=== PATIENT | male | born 1950 | race Caucasian/White ===

== ENCOUNTER → 2016-07-25 | Outpatient (CLI) | payer OTHER ==
[~2016-07-25] VITALS: Ht 188 cm; Wt 116.7 kg
[~2016-07-25] MED LIST: IBUP-1428 PO
[2016-07-25 15:00] VITALS: BP 157/77; PULSE 82; Ht 188 cm; Wt 116.7 kg
== END | disposition home or self-care (01) ==
LOC: C.NEUR 12:48
PROVIDERS: ATTEND Physician Assistant
DX: G47.33 Obstructive sleep apnea (adult) (pediatric) (principal)

== ENCOUNTER → 2017-02-06 | Outpatient (CLI) | payer OTHER ==
[2017-02-06 15:43] LABS: BASO % 0.9 %; BASO ABS # 0.07 K/uL (0-0.2); COMPLETE YES; EOS % 3.1 %; HEMATOCRIT 50.1 % (42-52); IG% 0.3 %; LYMPH % 25.9 %; LYMPH ABS # 2.03 K/uL (1.2-3.4); MEAN CELL VOLUME 88.4 fL (80-100); MEAN CORPUSCULAR HEMOGLOBIN 30.7 pg (25-34); MEAN CORPUSCULAR HGB CONC 34.7 g/dl (32-36); MEAN PLATELET VOLUME 12.1 fL (7.4-10.4); NEUT % 62.8 %; PLATELET COUNT 141 K/uL (130-400); RED BLOOD COUNT 5.67 M/uL (4.7-6.1); WHITE BLOOD COUNT 7.83 K/uL (4.8-10.8)
[2017-02-06 16:04] LABS: ALT/SGPT 32 U/L (12-78); AST/SGOT 21 U/L (15-37); BLOOD UREA NITROGEN 22 mg/dl (7-18); BUN/CREATININE RATIO 17.2 (10-20); CALCIUM 9.2 mg/dl (8.5-10.1); CARBON DIOXIDE 27 mmol/L (21-32); CHLORIDE 107 mmol/L (98-107); CHOLESTEROL 182 mg/dl (0-200); GLUCOSE 81 mg/dl (70-99); POTASSIUM 4.3 mmol/L (3.5-5.1); SODIUM 140 mmol/L (136-145); TRIGLYCERIDES 331 mg/dl (0-150); VERY LOW DENSITY LIPOPROT CALC 66 mg/dl
[2017-02-06 16:10] LABS: ALB/GLOB RATIO 1.2 (0.9-2); ALKALINE PHOSPHATASE 92 U/L (45-117); CHOLESTEROL/HDL RATIO 6.5; HDL CHOLESTEROL 28 mg/dl
[2017-02-07 07:57] LABS: ESTIMATED AVERAGE GLUCOSE 120 mg/dl; HA1C FLAG Normal (Normal)
== END | disposition home or self-care (01) ==
LOC: C.LABSPEC 14:53
PROVIDERS: ATTEND Internal Medicine
DX: Z00.00 Encounter for general adult medical examination without abnormal findings (principal); E78.5 Hyperlipidemia, unspecified; R73.9 Hyperglycemia, unspecified; M19.90 Unspecified osteoarthritis, unspecified site

== ENCOUNTER → 2017-05-04 | Outpatient (CLI) | payer MEDICARE ==
[2017-05-04 18:22] LABS: BASO % 0.5 %; BASO ABS # 0.06 K/uL (0-0.2); EOS % 3.5 %; EOS ABS # 0.44 K/uL (0-0.5); HEMATOCRIT 50.9 % (42-52); IG# 0.05 K/uL (0.00-0.02); LYMPH % 18.8 %; LYMPH ABS # 2.36 K/uL (1.2-3.4); MEAN CELL VOLUME 93.2 fL (80-100); MEAN CORPUSCULAR HEMOGLOBIN 31.1 pg (25-34); MEAN CORPUSCULAR HGB CONC 33.4 g/dl (32-36); MEAN PLATELET VOLUME 11.4 fL (7.4-10.4); MONO ABS # 0.63 K/uL (0.11-0.59); NEUT % 71.8 %; NEUT ABS # 9.03 K/uL (1.4-6.5); PLATELET COUNT 220 K/uL (130-400); RED CELL DISTRIBUTION WIDTH SD 46.9 fL (36.4-46.3); WHITE BLOOD COUNT 12.57 K/uL (4.8-10.8)
[2017-05-04 18:27] LABS: POTASSIUM 4.1 mmol/L (3.5-5.1)
== END | disposition home or self-care (01) ==
LOC: C.LABBFT 12:25
PROVIDERS: ATTEND Physician Assistant
DX: H90.A31 Mixed conductive and sensorineural hearing loss, unilateral, right ear with restricted hearing on the contralateral side (principal); H90.3 Sensorineural hearing loss, bilateral

== ENCOUNTER → 2017-05-06 | Outpatient (CLI) | payer MEDICARE ==
[2017-05-06 18:00] LABS: CREATININE 1.11 mg/dl (0.60-1.40)
== END | disposition home or self-care (01) ==
LOC: C.LABBFT 11:57
PROVIDERS: ATTEND Physician Assistant
DX: H90.3 Sensorineural hearing loss, bilateral (principal)

== ENCOUNTER → 2017-05-07 | Outpatient (CLI) | payer MEDICARE ==
[~2017-05-07] MED LIST changes: +GADAVIST IV PRN
--- NOTE | 2017-05-07 21:40 | DIAGNOSTIC IMAGING REPORT ---
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 Gadolinium enhancement. COMPARISON STUDY: None FINDINGS: Diffusion-weighted images show no evidence for an acute ischemic process. There is moderate mucosal thickening and/or opacification of mastoid air cells bilaterally. There is mucosal thickening of the maxillary sinuses and to a lesser extent ethmoid sinuses. Several small foci of increased signal are identified in the periventricular deep white matter regions. There is a consistent with chronic small vessel change of aging. Postcontrast images with particular attention to the internal artery canals show no abnormal postcontrast enhancement. The 7th and 8th nerves are unremarkable. IMPRESSION: 1. Considerable mucosal thickening and/or opacification of the mastoid air cells bilaterally. 2. Moderate mucosal thickening of the maxillary and to a lesser extent ethmoid sinuses. 3. Evaluation of the brain is otherwise negative for age. 4. The internal auditory canals are normal. 5. Mild chronic small vessel change of aging throughout both cerebral hemispheres. The above report was generated using voice recognition software. It may contain grammatical, syntax or spelling errors. Electronically signed by: Mervin Bennett M.D. 05/07/2017 9:39 PM Dictated Date/Time: 05/07/2017 9:36 PM
== END | disposition home or self-care (01) ==
LOC: C.MRI 19:13
PROVIDERS: ATTEND Physician Assistant
DX: H90.A31 Mixed conductive and sensorineural hearing loss, unilateral, right ear with restricted hearing on the contralateral side (principal); J34.89 Other specified disorders of nose and nasal sinuses

== ENCOUNTER 2022-08-15 06:22 | Observation (INO) ==
--- NOTE | 2022-07-15 11:58 | PAT Medication Instructions ---
Medication Instructions Date of Service July 15, 2022 Home Medications Medication Instructions Recorded carvedilol 3.125 mg tablet 3.125 mg PO BID #60 tabs 08/07/21 sacubitril 49 mg-valsartan 51 mg 1 tab PO BID #180 tabs 12/17/21 tablet (Entresto) Medication List: apixaban 5 mg tablet (Eliquis) 5 mg PO BID tamsulosin 0.4 mg capsule (Flomax) 0.4 mg PO BID carvedilol 3.125 mg tablet 3.125 mg PO BID sacubitril 49 mg-valsartan 51 mg tablet (Entresto) 1 tab PO BID Medical Thc 1 dose PO HS biotin 1 mg tablet 1 mg PO QAM multivitamin 1 tab PO QAM naltrexone 50 mg tablet 25 mg PO DAILY weightloss Continue as directed naltrexone 50 mg tablet 25 mg PO DAILY weightloss ASK your prescriber and surgeon apixaban 5 mg tablet (Eliquis) 5 mg PO BID (for spinal anesthesia: will need to hold Eliquis/apixaban at least 72 hours prior to surgery) STOP taking 2 weeks before surgery biotin 1 mg tablet 1 mg PO QAM DO NOT take the morning of surgery sacubitril 49 mg-valsartan 51 mg tablet (Entresto) 1 tab PO BID multivitamin 1 tab PO QAM Take morning of surgery With a small sip of water, OTHERWISE NOTHING TO EAT OR DRINK AFTER MIDNIGHT: tamsulosin 0.4 mg capsule (Flomax) 0.4 mg PO BID carvedilol 3.125 mg tablet 3.125 mg PO BID Take evening before surgery tamsulosin 0.4 mg capsule (Flomax) 0.4 mg PO BID carvedilol 3.125 mg tablet 3.125 mg PO BID sacubitril 49 mg-valsartan 51 mg tablet (Entresto) 1 tab PO BID Medical Thc 1 dose PO HS Other Notes If you have any questions please call us at [phone] or [phone] or [phone] or [phone]
--- NOTE | 2022-07-28 08:19 | Anesthesiology Consultation ---
Date of Service July 28, 2022 Assessment & Plan (1) Encounter for pre-operative examination: - Outpatient joint assessment: Patient is currently scheduled for inpatient pathway. If re-evaluated pending system levels during current pandemic/surgeon requests outpatient pathway, patient is not recommended candidate for outpatient joint program from anesthesia standpoint. Chart Review Chart Review: Acceptable Risk for Surgery and Patient seen in Pre Admission Testing Teaching & Discussion Pre-Anesthesia Teaching/Discussion Notes: Instructed NPO after midnight before surgery, except medications with 15 cc of water. Medication instructions provided according to the PAT guidelines. History Surgery Operation Date: 08/15/22 08:10 Proposed Procedures p Left Total Knee Arthroplasty - Forrest Light, Height/Weight Height: 6 ft 1 in Weight: 105.9 kg Allergies Allergy/AdvReac Type Severity Reaction Status Date / Time No Known Allergies Allergy Verified 07/15/22 07:30 Medications Home Medications Medication Instructions Recorded Confirmed Last Taken apixaban 5 mg tablet (Eliquis) 5 mg PO BID 03/09/20 07/15/22 Unknown tamsulosin 0.4 mg capsule (Flomax) 0.4 mg PO BID 03/09/20 07/15/22 Unknown sacubitril 49 mg-valsartan 51 mg 1 tab PO BID #180 tabs 12/17/21 07/15/22 Unknown tablet (Entresto) Medical Thc 1 dose PO HS 07/15/22 07/15/22 Unknown biotin 1 mg tablet 1 mg PO QAM 07/15/22 07/15/22 Unknown multivitamin 1 tab PO QAM 07/15/22 07/15/22 Unknown naltrexone 50 mg tablet 25 mg PO DAILY weightloss 07/15/22 07/15/22 Unknown carvedilol 3.125 mg tablet 3.125 mg PO BID #60 tabs 07/28/22 Unknown Past Medical History Medical History (Updated 07/28/22 @ 08:38 by Kenya Avila PA-C) Atrial fibrillation [place]s with [facility] [place] [facility] BPH (benign prostatic hyperplasia) Cardiomyopathy unknown etiology per [facility], EF 55-60% on 2022 echo Chronic sinusitis Disc degeneration, lumbar Hx of melanoma of skin nose, s/p excision Hyperlipidemia Hypertension controlled, stable per pt-white coat hypertension Mixed conductive and sensorineural hearing loss of right ear with restricted hearing of left ear Obesity Obstructive sleep apnea CPAP-night PAD (peripheral artery disease) Sensorineural hearing loss (SNHL) of both ears Patient denies h/o stroke, seizures, heart attack, DM, blood clots or blood transfusions. Exercise / Class Metabolic Activity II 4-5 Yardwork/Stairs/Walk up hill (denies chest discomfort or shortness of breath with 1 FOS) Past Family History Family History Unknown Snoring FHx: deafness or hearing loss Mother Breast cancer FHx: deafness or hearing loss Sister Colon cancer FHx: deafness or hearing loss Past Surgical History Surgical History History of arthroscopy of knee multiple (bilateral) History of colonoscopy History of esophagogastroduodenoscopy (EGD) History of total knee arthroplasty right Hx of melanoma excision S/P peripheral artery angioplasty with stent placement 05/02/22 at [facility] (left leg) Past Anesthesia History No Hx of Anesthesia Complications and No Family Hx of Anesthesia Complications History of PONV No Hx of PONV and No Hx of Motion Sickness Social History Smoking Status: Former smoker tobacco type: cigarettes Do You Dip or Chew Tobacco: No Smoking End Date: ~2002 Hx Alcohol Use: No Hx Substance Use: No Review of Systems Patient denies chest pain, shortness of breath, dyspnea on exertion, reflux, fever, chills, cough, wheezing, or palpitations. Physical Exam Vital Signs Vitals BP 133/85 P 65 SP02 96% on RA RESP 17 Physical Full cervical extension range of motion without pain TMD 3.5 finger breadths Mallampati Score 2 Dentition: implants-13 throughout, denies chipped or loose teeth, caps/crowns Lungs: normal respiratory effort. Clear throughout to auscultation, no adventitious breath sounds Cardiac: irregularly irregular rhythm, regular rate, no murmurs noted Carotid arteries: negative bruit bilat Lab Results Anesthesia Preop Results Results Anesthesia Widget: WBC 7.04 K/ul (4.8-10.8) 07/28/22 Hgb 16.5 g/dl (14.0-18.0) 07/28/22 Hct 47.6 % (42.0-52.0) 07/28/22 Plt 106 K/uL (130-400) L 07/28/22 Na 141 mmol/L (136-145) 07/28/22 K 4.9 mmol/L (3.5-5.1) 07/28/22 Cl 107 mmol/L (98-107) 07/28/22 CO2 29 mmol/L (21-32) 07/28/22 BUN 33 mg/dl (6-23) H 07/28/22 Creat 1.21 mg/dl (0.6-1.4) 07/28/22 Glucose Level 96 mg/dl (70-99(Fasting)) 07/28/22 PT 11.0 Seconds (9.0-12.0) 07/28/22 PTT 34.9 Seconds (21.0-31.0) H 07/28/22 INR 1.0 (0.9-1.1) 07/28/22 Blood Type O Positive 07/28/22 Antibody Screen NEGATIVE 07/28/22 Testing Electrocardiogram Date: 07/28/22 Afib, rate 68 bpm RBBB Chest X-Ray Date: 07/28/22 No pneumothorax or pleural effusion is present. There is no consolidation. No evidence for pulmonary edema. Linear left basilar opacity reflects atelectasis. Mild elevation of the left hemidiaphragm. There is borderline cardiomegaly. IMPRESSION: No acute cardiopulmonary findings. Echocardiogram Date: 06/16/22 EF 55-60% No regional wall motion abnormalities Mild cLVH LA mildly dilated Stress Test Date: 04/10/20 1. Negative myocardial perfusion for ischemia. 2. Fixed inferolateral and inferior defect which could represent infarct versus diaphragmatic attenuation artifact. 3. Global hypokinesis with moderately reduced LV systolic function. EF 41%. 4. Nondiagnostic Lexiscan ECG. MPHR 49% COVID-19 Risk Screen Screening Information COVID-19 Screen Date: 07/28/22 Exposure 21 Days Family/Household +COVID Last 21 Days: No Exposure 10 Days Any COVID Exposure Last 10 Days: No Symptoms Last 10 Days Experienced COVID Sx Last 10 Days: No + COVID 0-90 Days COVID + in Last 0-90 Days: No
--- NOTE | 2022-08-15 06:05 | History & Physical Report ---
Date of Service August 15, 2022 Assessment & Plan (1) Osteoarthritis of left knee: We will proceed with a left total knee arthroplasty. Postoperatively he will be started on Eliquis for DVT prophylaxis and kept overnight in the hospital for postop medical management. He plans to go to outpatient physical therapy upon discharge. History of Present Illness Chief Complaint: Osteoarthritis of the left knee. Primary Care Provider: Wood Nagy DO Wicho is a pleasant 71-year-old male who has been dealing with chronic worsening left knee pain. He has a history of right knee replacement done by Dr. Lopez in the past and has done very well with that. Unfortunately, he is really struggling with his left knee. It hurts him all the time. It hurts him going up and down stairs and walking long distances. X-rays and clinical examination been diagnostic for advanced osteoarthritis of the left knee. After found conservative treatment, he has elected proceed with a left total knee arthroplasty. Allergies Allergy/AdvReac Type Severity Reaction Status Date / Time No Known Allergies Allergy Verified 08/08/22 07:33 Home Medications Medication Instructions Recorded Confirmed Type apixaban 5 mg tablet (Eliquis) 5 mg PO BID 03/09/20 08/08/22 History tamsulosin 0.4 mg capsule (Flomax) 0.4 mg PO BID 03/09/20 08/08/22 History sacubitril 49 mg-valsartan 51 mg 1 tab PO BID #180 tabs 12/17/21 08/08/22 Rx tablet (Entresto) Medical Thc 1 dose PO HS 07/15/22 08/08/22 History biotin 1 mg tablet 1 mg PO QAM 07/15/22 08/08/22 History multivitamin 1 tab PO QAM 07/15/22 08/08/22 History naltrexone 50 mg tablet 25 mg PO DAILY weightloss 07/15/22 08/08/22 History carvedilol 3.125 mg tablet 3.125 mg PO BID #60 tabs 07/28/22 08/08/22 Rx Past Med/Surg History Medical History Atrial [place] [facility] [place] BPH (benign prostatic hyperplasia) Cardiomyopathy unknown etiology per [facility], EF 55-60% on 2022 echo Chronic sinusitis Disc degeneration, lumbar Hx of melanoma of skin nose, s/p excision Hyperlipidemia Hypertension controlled, stable per pt-white coat hypertension Mixed conductive and sensorineural hearing loss of right ear with restricted hearing of left ear Obesity Obstructive sleep apnea CPAP-night PAD (peripheral artery disease) Sensorineural hearing loss (SNHL) of both ears Surgical History History of arthroscopy of knee multiple (bilateral) History of colonoscopy History of esophagogastroduodenoscopy (EGD) History of total knee arthroplasty right Hx of melanoma excision S/P peripheral artery angioplasty with stent placement 05/02/22 at [facility] (left leg) Family History Unknown Snoring FHx: deafness or hearing loss Mother Breast cancer FHx: deafness or hearing loss Sister Colon cancer FHx: deafness or hearing loss Social History Smoking Status: Former smoker Tobacco Type: Cigarettes Age Started Using Tobacco: 15; Age Quit Using Tobacco: 30; packs per day: 2; Second Hand Exposure: No; Hx Alcohol Use: No Hx Substance Use: No Preferred Language: Albanian Communication Ability: Effective Hearing Ability: Use of Hearing Aid Business Development Coordinator Required: No Beliefs That Will Affect Care: None 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 Physical Exam On physical examination of left knee, he has a slight valgus deformity. He is tenderness palpation of the distal lateral femoral condyle and over the lateral joint line.. Constitutional WD/WN, vitals as above Eyes PERRL, conjunctivae normal, anicteric sclerae ENMT external ear and nose normal, oropharynx normal Neck trachea midline, no thyromegaly Respiratory normal respiratory effort, lungs clear to auscultation Cardiovascular RRR, no murmur, no edema Gastrointestinal (Abdomen) normal bowel sounds, soft, nontender, no hepatosplenomegaly Skin no rashes, warm and dry Psychiatric A+Ox3, euthymic affect Results & Data Results & Data Laboratory Results . Diagnostic Findings X-rays of the left knee show advanced osteoarthritis with joint space narrowing, osteophyte formation, and alwe-vs-kjox articulation. PG Care Time/CCT Total # of Minutes Spent Total Time Spent with Patient: Total time spent is greater than 50% in coordination of care (as documented) at patient's floor/unit and/or counseling patient: Coding Level of Care Code None Diagnoses Osteoarthritis of left knee M17.12
[~2022-08-15 06:22] MED LIST changes: +ACETAMINOPHEN 500 MG TAB PO SCH; +FAMOTIDINE 20 MG TAB PO SCH; +GABAPENTIN 300 MG CAP PO SCH; -GADAVIST IV PRN; -IBUP-1428 PO; +LR 500ML BOLUS, THEN 15ML/HR IV SCH; +LR 60ML/HR IV SCH; +ORTHO JOINT MIX INFIL SCH; +TRANEXAMIC ACID 1,000 MG **IV Intra-op IV SCH; +TRANEXAMIC ACID 1,000 MG **IV Pre-op IV SCH; +ceFAZolin 2000MG 2,000 MG/15 ML SYR IV SCH; +dexAMETHasone 4 MG TAB PO SCH
[2022-08-15] MEDS ORDERED: ROPIVACAINE 0.5% 5 MG/ML 30 ML VIAL ONE (06:29)
[2022-08-15] MEDS ORDERED: MIDAZOLAM HCL 1 MG/ML 2ML VIAL ONE (07:32)
[2022-08-15] MEDS ORDERED: PROPOFOL IV EMULSION 10 MG/ML 20 ML VIAL IV ONE ×2 (07:32→11:10)
[2022-08-15] MEDS ORDERED: fentaNYL citrate PF 100 MCG/2 ML VIAL ONE (07:32)
[2022-08-15] MEDS ORDERED: ATROPINE SULFATE 0.1 MG/ML 10ML SYR IV PRN (08:38)
[2022-08-15] MEDS ORDERED: ePHEDrine sulfate 50 MG/ML AMP IV PRN (08:38)
[2022-08-15] MEDS ORDERED: ONDANSETRON INJ 2 MG/ML 2 ML VIAL IV PRN ×2 (08:38→13:53)
[2022-08-15] MEDS ORDERED: HYDROmorphone INJ 1 MG/ML SYRINGE IV PRN (08:38)
[2022-08-15] MEDS ORDERED: KETOROLAC 30 MG/ML VIAL IV PRN (08:38)
[2022-08-15] MEDS ORDERED: ORTHO JOINT ANESTHETIC ONE (08:53)
[2022-08-15] MEDS ORDERED: KETAMINE 50 MG/5 ML SYRINGE ONE (10:00)
[2022-08-15] MEDS ORDERED: ONDANSETRON INJ 2 MG/ML 2 ML VIAL ONE (10:27)
--- NOTE | 2022-08-15 11:12 | Operative Report ---
PG Post Operative Report Pre & Post Diagnosis Operation Date: 08/15/22 09:30 Pre-Op Diagnosis: Degenerative Joint Disease Left Knee Post-Op Diagnosis: Degenerative Joint Disease Left Knee I identified the patient and participated in the time-out.: Yes Procedure Operation Date: 08/15/22 09:30 Actual Procedures p Left Total Knee Arthroplasty, Cemented(Left) - Forrest Light DO Surgeon Forrest Light DO Soaker Meat Forrest Díaz PA-C Estimated Blood Loss 100 Findings Consistent with Post-Op Diagnosis Specimens Left femoral and tibial bone Description of Procedure Implants used: I used a Marilou Persona total knee arthroplasty system with a size 11 standard femur, F tibia, 34 oval patella, and a size 13 medial congruent polyethylene bearing. All components were cemented in place with Biomet cement. Bruno arrived [facility] for the above procedure. He was seen in the preoperative holding area and the operative extremity was identified and signed. He was given a preoperative antibiotic, TXA, a spinal anesthetic and an adductor nerve block. He was taken back to the operating room and laid on the table in supine position. He was given basic sedation. The operative knee was then prepped and draped in sterile fashion. A timeout was done, and the patient and the operative extremity was properly identified. A midline incision was made directly over the patella. Dissection was taken down to the extensor mechanism. A midvastus arthrotomy was used. The medial retinaculum was released and the fat pad was mostly excised. The knee was flexed and the ACL, PCL, and meniscus were removed. A drill was sent down the center of the femoral canal followed by an intramedullary michelle. Off that michelle a distal femoral cutting block was placed. 9 mm was resected off the distal femur at 5 of valgus. A posterior referencing AP sizing guide was then placed on the distal femur. The femur measured to be a size 11. 2 drill holes were placed in 3 of external rotation. A 4-in-1 cutting block was then impacted into place. Anterior, posterior, and chamfer cuts were then made. The proximal tibia was then exposed. An external tibial alignment guide was placed. A tibial cut guide was then anchored in place and the proximal tibia was then resected. The posterior aspect of the knee was then opened up and any additional meniscus fragments and osteophytes were removed. The tibia measured to be a size F. The tibial plate was then placed in the appropriate rotation and the tibia was drilled and punched. Trial components were then placed. I used a size 13 medial congruent polyethylene insert. The knee was brought through a full range of motion and felt to be stable. The peg holes for the femoral component were then drilled. The patella was then everted and 9 mm was resected off the posterior aspect of the patella. The patella measured to be a size 34 oval. 3 peg holes were then drilled. A trial patella was placed. The knee was once again brought through a full range of motion and felt to be stable. Trial components were then removed. The surrounding soft tissues were injected with 100 cc of an orthopedic pain control cocktail. All components were then cemented into place with Biomet cement. The final polyethylene insert was then snapped into place. Once cement was dry the tourniquet was deflated. Hemostasis was obtained. A dilute betadyne lavage was then done for 3 minutes. The joint was then irrigated with normal saline solution. The midvastus arthrotomy was then closed with #1 Vicryl suture. The skin was closed with 2-0 Vicryl, 3-0V lock suture, and vira. A soft compressive dressing was placed. He was then transferred to a hospital bed and taken to the postanesthesia care unit in stable condition. He tolerated the procedure well. Forrest Díaz PA-C, was present for the entire procedure. He was critical for patient positioning, prepping, draping, retraction exposure, wound closure and application of sterile dressing. I attest to the content of the Intraoperative Record and any orders documented therein. Any exceptions are noted below.
--- NOTE | 2022-08-15 12:35 | Anesthesiology Progress Note ---
Date of Service August 15, 2022 Anesthesia Post Procedure Vital Signs Vital Signs: Temp Pulse Pulse Resp BP BP Pulse Ox 08/15/22 12:30 57 L 18 117/75 98 08/15/22 11:55 48 L 13 115/74 100 08/15/22 12:15 36.1 C L 60 14 104/76 97 08/15/22 12:05 63 21 124/76 99 08/15/22 11:45 39 L 15 102/68 100 08/15/22 11:38 36.5 C 58 L 15 88/69 L 96 08/15/22 07:36 36.5 C 55 L 20 165/102 H 97 O2 Del Method O2 Flow Rate 08/15/22 12:30 Nasal Cannula 2 08/15/22 11:55 Oxymask 10 08/15/22 12:15 Nasal Cannula 2 08/15/22 12:05 Oxymask 6 08/15/22 11:45 Oxymask 10 08/15/22 11:38 Oxymask 10 08/15/22 07:36 Room Air Transfer of Care Handoff Completed per policy Notes Mental Status: alert / awake / arousable Patient Amnestic to Procedure: Yes Nausea / Vomiting: adequately controlled Pain: adequately controlled Airway Patency, RR, SpO2: stable & adequate BP & HR: stable & adequate Hydration State: stable & adequate Neuraxial Anesthesia: was administered and sensory block is resolving Anesthetic Complications: no major complications apparent
--- NOTE | 2022-08-15 12:53 | XRay Report ---
LEFT KNEE 2 VIEWS History: Left total knee arthroplasty. Degenerative arthritis. Postop. FINDINGS: The patient is status post a left total knee arthroplasty. The hardware is intact. No fract ure or dislocation. Skin vira are in place. IMPRESSION: Left total knee arthroplasty. No evidence for hardware complication. ACT 112: Negative or not required by law. Electronically signed by: Brian Colunga M.D. 08/15/2022 12:52 PM
[2022-08-15] MEDS ORDERED: MAGNESIUM HYDROXIDE SUSP 30 ML UDC PO PRN (13:53)
[2022-08-15] MEDS ORDERED: bisacodyL 10 MG SUPP PR PRN (13:53)
[2022-08-15] MEDS ORDERED: METOCLOPRAMIDE HCL INJ 5 MG/ML 2 ML VIAL IV PRN (13:53)
[2022-08-15] MEDS ORDERED: NALOXONE HCL 0.4 MG/1 ML VIAL/CARP IV PRN (13:53)
[2022-08-15] MEDS ORDERED: SODIUM CHLORIDE 0.9% 1000ML 1,000 ML IV SCH (13:53)
[2022-08-15] MEDS: ACETAMINOPHEN 500 MG TAB PO SCH ×2 (14:25→21:21)
[2022-08-15] MEDS: KETOROLAC TROMETHAMINE 15 MG/ML VIAL IV SCH ×2 (14:28→21:22)
[2022-08-15] MEDS: oxyCODONE HCL IR 5 MG TAB (IMMEDIATE RELEASE) PO PRN ×2 (16:06→22:55)
[2022-08-15] MEDS: carvediloL 3.125 MG TAB PO SCH (17:07)
[2022-08-15] MEDS: ceFAZolin 2000MG 2,000 MG/15 ML SYR IV SCH (17:39)
[2022-08-15] MEDS: HYDROmorphone INJ 0.5 MG/0.5 ML SYR IV PRN (19:17)
[2022-08-15] MEDS ORDERED: SENNA 8.6 MG TAB PO SCH (21:00)
[2022-08-15] MEDS: DOCUSATE SODIUM 100 MG CAP PO SCH (21:21)
[2022-08-15] MEDS: VALSARTAN/SACUBITRIL 51/49 MG TAB PO SCH (21:22)
[2022-08-15] MEDS: TAMSULOSIN HCL 0.4 MG CAP PO SCH (21:22)
[2022-08-16] MEDS: HYDROmorphone INJ 0.5 MG/0.5 ML SYR IV PRN ×3 (01:37→12:17)
[2022-08-16] MEDS: ceFAZolin 2000MG 2,000 MG/15 ML SYR IV SCH (01:37)
[2022-08-16] MEDS: ACETAMINOPHEN 500 MG TAB PO SCH (05:21)
[2022-08-16] MEDS: oxyCODONE HCL IR 5 MG TAB (IMMEDIATE RELEASE) PO PRN ×2 (05:21→10:16)
--- NOTE | 2022-08-16 05:35 | Orthopedic Progress Note ---
Date of Service August 16, 2022 Assessment & Plan (1) Status post left knee replacement: Overall he is doing very well. He is not having much pain in the left knee. He will be seen by physical therapy today for ambulation and range of motion exercises. He is on Eliquis for DVT prophylaxis. He can be discharged home later today. He will follow-up with orthopedics in 2 weeks. Chaz Carr was seen and examined at bedside this morning. Overall is doing very well. He is not having much pain in the left knee. He has been up and ambulating to the bathroom. He has no complaints.. Review of Systems All systems reviewed & are unremarkable except as noted in HPI & below. Physical Exam On physical examination of the left knee, the dressing is clean and dry. His leg is out full extension. He has active dorsiflexion plantarflexion of his left ankle.. Results & Data Results & Data Laboratory Results . Diagnostic Findings Postoperative x-rays of the left knee show the prosthesis to be in anatomic alignment without any evidence of fracture, screws, or loosening.. PG Care Time/CCT Total # of Minutes Spent Total Time Spent with Patient: Total time spent is greater than 50% in coordination of care (as documented) at patient's floor/unit and/or counseling patient: Coding Level of Care Code 88358 Post Operative Follow-Up Diagnoses Status post left knee replacement Z96.652
--- NOTE | 2022-08-16 05:36 | Discharge Summary ---
Date of Service August 16, 2022 Admission HPI (Per Admitting) Wicho is a pleasant 71-year-old male who has been dealing with chronic worsening left knee pain. He has a history of right knee replacement done by Dr. Lopez in the past and has done very well with that. Unfortunately, he is really struggling with his left knee. It hurts him all the time. It hurts him going up and down stairs and walking long distances. X-rays and clinical examination been diagnostic for advanced osteoarthritis of the left knee. After found conservative treatment, he has elected proceed with a left total knee arthroplasty. Admission Exam (Per Admitting) On physical examination of left knee, he has a slight valgus deformity. He is tenderness palpation of the distal lateral femoral condyle and over the lateral joint line.. Principal Diagnosis Same as "Discharge Diagnosis" noted below under Discharge Instructions. Discharge Exam On physical examination of the left knee, the dressing is clean and dry. His leg is out full extension. He has active dorsiflexion plantarflexion of his left ankle.. Discharge Data Procedures Performed Operation Date: 08/15/22 09:30 Actual Procedures p Left Total Knee Arthroplasty, Cemented(Left) - Forrest Light DO Ordered Studies 08/15/22 05:00 US - OR guided needle placemen Routine Hospital Course (1) Status post left knee replacement: On 9 August 15, 2022 Bruno arrived at [facility] and underwent a left knee replacement without complication. He had a spinal anesthetic. Postoperatively he was started on Eliquis for DVT prophylaxis and transferred to the general orthopedic floors. His hospital course was uneventful. On postop day #1, his vital signs were stable and his pain was well controlled. He was able to participate well with physical therapy doing ambulation and range of motion exercises. He was then discharged to home. He will follow-up with orthopedics in 2 weeks. PG Care Time/CCT Total # of Minutes Spent Total Time Spent with Patient: Total time spent is greater than 50% in coordination of care (as documented) at patient's floor/unit and/or counseling patient: Discharge Plan Discharge Items Patient Disposition: Home - Home Health Services Reason For Visit: DJD Left Knee Discharge Diagnosis: Left knee replacement Activity: As commented below Non-emergency contact: Surgeon Call non-emergency contact if: your wound has increased redness and your wound has increased drainage Follow-up/Referrals: Wood Nagy, [Primary Care Provider] - Diet: Regular Addtl Attending Provider Instructions: Activity and Therapy Recommendations: * If you are using [facility] then therapy will be provided at your home until they feel you have accomplished all of your goals. * If you are using [facility] then Physical Therapy will be provided until they feel you are ready to start Outpatient Physical Therapy. * If you are not using home therapy then Outpatient Physical Therapy should start about 3-5 days from your day of surgery. Therapy will last about 6-10 weeks * It is important not to put a pillow under your knee when you are relaxing or sleeping. It is just as important to make sure you are getting your knee perfectly straight as it is to regain your knee bend. * You were shown a series of exercises in the hospital. Do these exercises three times each day including the exercises you were shown in physical therapy. * Get up and walk several times each day. For the first four weeks, try not to stand or walk for more than one hour at a time. If you do stand or walk for more than one hour, you will not hurt anything, but your leg will likely swell. * As you feel comfortable, you may change from the walker or crutches to a cane and then to independent walking. Medications: * Narcotic You will likely be sent home from the hospital with a prescription for the narcotic pain medication that worked best throughout your stay. * Continue taking your Eliquis as prescribed. * Other medications may be prescribed for specific circumstances. If you have any questions, please call the office at . * Resume previous home medications unless otherwise instructed TEDs/Elastic Stockings: The white elastic stockings help limit swelling and prevent blood clots from forming in your legs.~ The more you wear them, the more they work. Wear them for six weeks. Dressing Care: The dressing can be changed after physical therapy on postop day #1. Daily dry dressing changes for a few days, especially if the incision is still draining some. If the incision is not draining then you may leave the vira open to air. If there is a little bit of drainage or if the vira are getting stuck on your clothing then cover the incision with a dry dressing. The vira will be removed at your 2 week follow-up appointment. Showering: You may shower 5 days from the day of surgery as long as the incision is no longer draining. You may shower with the vira exposed. Let soapy water run over the vira and pat them dry. Do not scrub or soak the incision. Things To Watch For: * Drainage from the incision site that occurs more than one week after your surgery. * Increased redness at the incision site. * Fever above 102 degrees Fahrenheit. * Unusual chest pain or shortness of breath. * Call [facility] at with any of the above problems Follow-Up Visit: Follow-up with Dr. Light's PA (Forrest Díaz) 2-3 weeks after your day of surgery. He will remove your vira and answer any questions. If you have any additional questions or concerns, Dr Light is usually in the office at the same time and will be available An appointment was probably scheduled when you signed-up for surgery in the office. If you have any questions call Office Instructions: More detailed instructions as well as Frequently Asked Questions were provided in a folder by our office when you signed-up for surgery. Please review these instructions when you get home. If you have any further questions or concerns, please feel free to call the office at [phone] Pending Studies at Discharge: No Stand-Alone Forms: [facility], Smoking Cessation Medications and DC Order Prescriptions: New oxycodone-acetaminophen 5-325 mg tablet 1 tab PO Q6H PRN (Reason: pain) Qty: 30 0RF Continued carvedilol 3.125 mg tablet 3.125 mg PO BID Qty: 60 11RF Rx Instructions: must administer with a meal/food Entresto 49-51 mg tablet 1 tab PO BID Qty: 180 3RF tamsulosin [Flomax] 0.4 mg capsule 0.4 mg PO BID Eliquis 5 mg tablet 5 mg PO BID multivitamin Tablet 1 tab PO QAM biotin 1 mg Tablet 1 mg PO QAM Medical Thc 1 dose PO HS naltrexone 50 mg tablet 25 mg PO DAILY Admission Data Admit Date/Time: 08/15/22 11:40 Attending Provider: Forrest Light Admit Provider: Forrest Light Primary Care Provider: Wood Nagy
[2022-08-16] MEDS ORDERED: APIXABAN 5 MG TABLET PO SCH (08:00)
[2022-08-16] MEDS ORDERED: dexAMETHasone 4 MG TAB PO SCH (08:00)
[2022-08-16] MEDS: carvediloL 3.125 MG TAB PO SCH (08:33)
[2022-08-16] MEDS: TAMSULOSIN HCL 0.4 MG CAP PO SCH (08:33)
[2022-08-16] MEDS: VALSARTAN/SACUBITRIL 51/49 MG TAB PO SCH (08:33)
[2022-08-16] MEDS: DOCUSATE SODIUM 100 MG CAP PO SCH (08:34)
[2022-08-16] MEDS ORDERED: NALTREXONE HCL 50 MG TAB PO SCH (09:00)
[2022-08-16] MEDS ORDERED: MULTIVITAMIN TAB PO SCH (09:00)
== END 2022-08-16 12:42 | disposition home or self-care (01) ==
LOC: ASU 06:22 → 3E 06:22 → ASU 09:54

== ENCOUNTER 2024-02-03 11:06 | Inpatient (IN) ==
[2024-02-03] MEDS: MIDAZOLAM HCL 1 MG/ML 2ML VIAL ONE ×4 (11:13→13:34)
--- NOTE | 2024-02-03 11:23 | History & Physical Report ---
Date of Service February 03, 2024 Assessment & Plan (1) ST elevation (STEMI) myocardial infarction: Plan: Inferior STEMI, Heart failure with history of nonischemic cardiomyopathy [id number] collapse, with a CPR and subsequent ROSC. Received 3 doses of epinephrine and 1 dose of atropine prehospital. Prehospital EKG with inferior ST elevations Troponin added and trended - Amio continued Taken to the Pupil Personnel Worker emergently. Subsequently was found to have distal RCA acute occlusion s/p 4 DIANE. Subsequently moved to the ICU for recovery Echo pending Troponin trended to peak BBlocker and Entresto held for cardiogenic shock requiring pressors, resume o nce pressures permit Continue DAPT aspirin/Brilinta - TTE 2022: 55-60% EF - TTE 2019: 40-45% EF, biventricular dysfunction. Suspected nonischemic, unclear etiology at the time Entresto and beta-amina held on admission due to cardiogenic shock (2) HFrEF (heart failure with reduced ejection fraction): (3) Atrial fibrillation: Plan: A-fib on Eliquis Patient switched to heparin on admission Beta-amina held on admission for cardiogenic shock on pressors Patient has had multiple severe GI bleeds and anemia. Did have ERNESTO clipping in 2019, is continued on apixaban and does have some increased risk of VTE with underlying malignancy. Recommend review of ongoing/benefits of anticoagulation with DAPT post stenting once patient able to contribute to conversation (4) Complex sleep apnea syndrome: Plan: ARACELIS: Sleep study 12/05/2023 consistent with complex sleep apnea. Patient currently intubated, once extubated continue NIV qHS while inpt, ASV at home Plan Chronic stable issues Hyperlipidemia: Statin as noted Hypertension: Continue antihypertensives as noted PAD: No acute change, follow with vascular Health screening: Last colonoscopy with poor prep, nonbleeding internal hemorrhoids. DVT prophylaxis: Heparinized on admission, transition to prophylactic Lovenox if renal function is normal when GTTs discontinued CODE STATUS: Full code Disposition: ICU post STEMI Diet: N.p.o., ETT in place History of Present Illness Primary Care Provider: Wood Nagy DO Bruno is a 73-year-old male with past medical history of atrial fibrillation, PAD, hypertension, hyperlipidemia on Eliquis, carvedilol, Entresto who presents to the ER as a heart alert. Collateral is limited, patient is intubated and no history is available from the patient at bedside. Patient's is reportedly on the way to the hospital has not yet present at bedside for collateral. Per EMS in signout report patient was in a fishing at a , had a stressful conversation following a and collapsed shortly after. CPR was started immediately by the under taker and was performed for approximately 10 minutes until EMS arrival. Patient received 3 doses of epinephrine and 1 dose of atropine prehospital with ROSC after approximately 10 minutes. Prehospital EKG showed inferior ST elevations. Patient was intubated. At time of bedside evaluation patient is intubated, on Levophed 0.5, and serial EKGs with improving inferior ST elevations compared to prior. Patient is reportedly on Eliquis. Does have a history of nonischemic cardiomyopathy with EF in 2020 around 40-45%, interval improvement on last echo 55-60% while on Entresto, carvedilol. He is a known vasculopath with a history of left femoral stent placement on Eliquis monotherapy, no known antiplatelet therapy. Does have a history of prediabetes on metformin, and tobacco abuse. History of A-fib. Stat head CT without obvious intracranial pathology. While in the ER patient was started on Levophed 0.5, continued on mechanical ventilation. Patient was started on a heparin drip Patient taken emergently to the Pupil Personnel Worker for cardiac catheterization, and to be admitted to the ICU following. Further workup and collateral pending reevaluation and discussion once family at bedside. Patient is reportedly full code. Medical History: Reviewed in EMR Medications: Reviewed in EMR Surgical History: Reviewed in EMR Family history: Reviewed in EMR Allergies: Reviewed in EMR Social History: Reviewed in EMR +tobacco use Code Status: Reviewed in EMR, full Code Allergies Allergy/AdvReac Type Severity Reaction Status Date / Time No Known Allergies Allergy Verified 12/15/23 10:53 Home Medications Medication Instructions Recorded Confirmed Type multivitamin 1 tab PO QAM 07/15/22 02/03/24 History tamsulosin 0.4 mg capsule (Flomax) 0.4 mg PO BID #180 caps 12/04/22 02/03/24 Rx acetaminophen 500 mg tablet 500 mg PO QAM 05/04/23 02/03/24 History apixaban 5 mg tablet (Eliquis) 5 mg PO BID #60 tabs 08/23/23 02/03/24 Rx carvedilol 3.125 mg tablet 3.125 mg PO BID #180 tabs 10/01/23 02/03/24 Rx metformin 500 mg tablet,extended 500 mg PO BID #180 tabs 11/10/23 02/03/24 Rx release 24 hr sacubitril 24 mg-valsartan 26 mg 1 tab PO BID #180 tabs 12/01/23 02/03/24 Rx tablet (Entresto) CPAP Machine #1 ea 12/15/23 12/15/23 Rx Past Med/Surg History Problem List (Updated 02/03/24 @ 16:45 by Justin Fiore MD, [facility]) Transaminitis Shock circulatory HFrEF (heart failure with reduced ejection fraction) Contusion of forehead (Acute) ST elevation (STEMI) myocardial infarction (Acute) Cardiac arrest (Acute) Complex sleep apnea syndrome Nocturnal hypoxemia Moderate obstructive sleep apnea Tendinitis of right rotator cuff Status post left knee replacement (~07/2022) Osteoarthritis of right knee Left knee pain Bunionette of left foot Metatarsalgia of left foot Metatarsus adductus of left foot Osteoarthritis of left knee Deltoid bursitis Dilated aortic root Mitral regurgitation mild to moderate on echocardiogram 01/2020 Atrial fibrillation, persistent Generalized osteoarthritis Sudden left hearing loss Overweight with body mass index (BMI) 25.0-29.9 Prediabetes diet controlled BPH (benign prostatic hyperplasia) Sensorineural hearing loss (SNHL) of both ears Mixed conductive and sensorineural hearing loss of right ear with restricted hearing of left ear Hypertension controlled, stable per pt-white coat hypertension Hyperlipidemia Disc degeneration, lumbar Chronic sinusitis Cardiomyopathy unknown etiology per VT cardio, EF 55-60% on 2022 echo > follows with Dr. Winters PAD (peripheral artery disease) (Chronic) Medical History Hx of melanoma of skin nose, s/p excision Atrial fibrillation [place] [facility] [place] [facility] [place] no [place] Obesity Surgical History S/P peripheral artery angioplasty with stent placement 05/02/22 at [facility] (left leg) Hx of melanoma excision History of esophagogastroduodenoscopy (EGD) History of colonoscopy History of arthroscopy of knee multiple (bilateral) History of total knee arthroplasty bilat Family History Unknown Snoring FHx: deafness or hearing loss Mother Breast cancer FHx: deafness or hearing loss Sister Colon cancer FHx: deafness or hearing loss Social History Smoking Status: Former smoker Tobacco Type: Cigarettes Age Started Using Tobacco: 15; Age Quit Using Tobacco: 30; packs per day: 2; Second Hand Exposure: No; Do You Dip or Chew Tobacco: No; Hx Alcohol Use: No Hx Substance Use: No Preferred Language: Tajik Communication Ability: Unable Communication Ability Comment: Bilateral hearing aids Hearing Ability: Use of Hearing Aid Airline Managerial Supervisor Required: No Beliefs That Will Affect Care: Scientology Scientology Beliefs: 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 No specific healthcare practices. 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 HEENT: +Forehead contusion. Pulm: Diminished, -wheezes, -rales, -rhonchi. Symmetrical chest rise. No increased work of breathing. No respiratory distress. Cardiac: tachycardic, -mrg. Radial pulses intact and symmetrical. Abdominal: soft. BS present. PG Care Time/CCT Total # of Minutes Spent Total Time Spent with Patient: Total time spent is greater than 50% in coordination of care (as documented) at patient's floor/unit and/or counseling patient: Coding Level of Care Code 83635 INT INP/OBS CARE 3/75MIN Diagnoses ST elevation (STEMI) myocardial infarction I21.3 HFrEF (heart failure with reduced ejection fraction) I50.20 Atrial fibrillation I48.91 Complex sleep apnea syndrome G47.31
--- NOTE | 2024-02-03 11:30 | CT Scan Report ---
CT SCAN OF THE BRAIN WITHOUT IV CONTRAST CLINICAL HISTORY: Cardiac arrest. Head injury. COMPARISON STUDY: MRI of the brain dated 05/07/2017. TECHNIQUE: Unenhanced axial CT scan of the brain is performed from the vertex to the skull base. A do se lowering technique was utilized adhering to the principles of ALARA. The examination is degraded b y motion artifact as well as by suboptimal positioning within the CT gantry. There is also streak art ifact from metallic electrodes. FINDINGS: An endotracheal tube is noted on the manager research development tomogram. Brain parenchyma: There is age-related involutional change. Question diffuse loss of mendoza-white matte r differentiation. There is no hemorrhage, mass effect, or evidence of acute territorial ischemia by CT criteria. No extra-axial fluid collection is seen. Ventricles, sulci, cisterns: Prominent secondary to involutional change. Intracranial vasculature: There is atherosclerotic calcification of the cavernous carotid and vertebr al arteries. Calvarium: Unremarkable. Soft tissues: There is a frontal scalp hematoma. Sinuses and mastoids: Moderate mucosal thickening is noted in the ethmoid sinuses. There is trace muc osal thickening within the maxillary sinuses. Air-fluid levels are noted in the sphenoid sinuses. The re are small mastoid effusions. Orbits: The bony orbits are grossly intact. IMPRESSION: 1. Question diffuse loss of mendoza-white matter differentiation. This is difficult to assess due to the degree of artifact but is suspicious for diffuse cerebral edema/a global hypoxic ischemic event. Cor relate clinically. 2. There is no hemorrhage or midline shift. 3. Frontal scalp hematoma. ACT 112: Negative or not required by law. Electronically signed by: Jayy German M.D. 02/03/2024 11:29 AM
--- NOTE | 2024-02-03 11:34 | Emergency Department Note ---
Impression & Plan ST elevation (STEMI) myocardial infarction, Contusion of forehead, Atrial fibrillation, persistent, On apixaban therapy, Cardiac arrest with ventricular fibrillation ED Provider Note NAME: VAN DAVEY AGE: 73 SEX: M : 1950 ARRIVES VIA: Ambulance INFORMANT: Patient ED PROVIDER(S): Feng Gracia MD CHIEF COMPLAINT: Cardiac arrest. PLAN: Disposition: Admit MEDICAL DECISION MAKING: The patient is a 73 y/o gentleman with a past medical history of atrial fibrillation on Eliquis, hypertension, BPH who presents to the emergency department via EMS for cardiac arrest in the setting of the patient officiating a and was reported to have engaged in an argument with an individual at the ceremony and had stepped outside and then was found on the ground. Per EMS report bystanders began immediate CPR. EMS arrived and found the patient in ventricular fibrillation the patient received 3 shocks as well as epinephrine x 3 and subsequent ROSC was obtained with bradycardia improving with atropine. Subsequent EKG demonstrated inferior ST elevations with reciprocal depressions. Per my discussion with EMS crew patient was also administered 300 mg load of amiodarone. Patient was intubated and was treated with push fentanyl and Versed for pain and sedation. Heart alert was activated in the field per my discussion with crew on medical command. Case was reviewed with Dr. Gtz, interventional cardiology prior to patient arrival Patient did fall and hit his head with a small forehead contusion and superficial laceration/abrasion to the bridge of the nose and so was taken directly to CT for imaging which showed no overt ICH or fracture of the CTL spine. On arrival to the emergency department is intubated, breathing spontaneously and requiring additional sedation as he was attempting to move while being placed in the CT scanner. Review of joss house keeper images demonstrates acceptable placement of ET tube. Bilateral breath sounds are present on examination. Blood pressure was 100s/80s initially. Dr. Gtz and [employer] team at the bedside. Patient has palpable peripheral pulses but blood pressure labile so vasopressors initiated per [employer] team. Patient was transferred directly to the [employer] for intervention. Case was discussed with Dr. Zuleta, [facility] hospitalist, at the bedside for admission following lab nurse intervention. Lab work subsequently resulted with WBC of 5.9 with neutrophil predominance but no left shift. H/H within normal limits. Platelets 132K within normal limits. VBG with pH of 7.2 pCO2 of 55. Chemistry with bicarbonate of 22. Creatinine is 1.4 approximate 2 values in April. AST and ALT 86 and 83, respectively, nonspecific. High-sensitivity troponin 121.4 initially. Further management per [employer] and admitting team/ICU. Triage Nursing notes reviewed and agree them. Prior/external medical records reviewed Vital Signs: reviewed Differential diagnosis: Cardiac ischemia, aortic dissection, pulmonary embolism, electrolyte abnormality, acidosis, tension pneumothorax, hypothermia, hypovolemia, intracranial event, cardiac tamponade, as well as other pathologies. ER treatment provided: See below. Diagnostics interpreted by me: ECG: Atrial fibrillation with right bundle branch block, 130 bpm, no ectopy, slight residual ST elevation in lead II/III and depression in AVL. Cardiac Monitoring: An order for continuous cardiac monitoring was placed and demonstrated Atrial fibrillation with right bundle branch block, 130 bpm, no ectopy. Laboratory studies: See below Imaging studies: See below Consultation(s): Dr. Gtz, interventional cardiology. Dr. Zuleta, [facility] hospitalist. HPI: The patient is a 73 y/o gentleman with a past medical history of atrial fibrillation on Eliquis, hypertension, BPH who presents to the emergency department via EMS for cardiac arrest in the setting of the patient officiating a and was reported to have engaged in an argument with an individual at the ceremony and had stepped outside and then was found on the ground. Per EMS report bystanders began immediate CPR. EMS arrived and found the patient in ventricular fibrillation the patient received 3 shocks as well as epinephrine x 3 and subsequent ROSC was obtained with bradycardia improving with atropine. Subsequent EKG demonstrated inferior ST elevations with reciprocal depressions. Per my discussion with EMS crew patient was also administered 300 mg load of amiodarone. Patient was intubated and was treated with push fentanyl and Versed for pain and sedation. Heart alert was activated in the field per my discussion with crew on medical command. Case was reviewed with Dr. Gtz, interventional cardiology prior to patient arrival ROS: See above HPI for pertinent positives & negatives. A total of 10 systems reviewed and were otherwise negative. VITALS:See Below PHYSICAL EXAMINATION: GENERAL: Intubated. HENT: Normocephalic, small forehead contusion and superficial laceration/abrasion to the bridge of the nose. Oropharynx with dry mucous membranes and otherwise unremarkable. EYES: Pupils equal, mid-range, sluggishly reactive NECK: Atraumatic. RESPIRATORY: Coarse bilateral breath sounds on ventilator. CARDIAC: Tachycardic rate, irregular rhythm. ABDOMEN: nondistended. MSK: Chest wall contusion. LOWER EXTREMITIES: Scant edema. NEURO: Intubated requiring sedation. SKIN: Warm, dry. ED COURSE: Critical Care: I have personally spent greater than 35 minutes of critical care time in the direct management of this patient. This includes bedside care, interpretation of diagnostic studies, and testing, discussion with consultants, patient, and family members, and other required patient management activities. This 35 minutes is in excess of all separately billable procedures. Feng Gracia MD Past Med/Surg History Problem List (Updated 02/03/24 @ 21:35 by Feng Gracia MD) Cardiac arrest with ventricular fibrillation (Acute) On apixaban therapy (Acute) Transaminitis Shock circulatory HFrEF (heart failure with reduced ejection fraction) Contusion of forehead (Acute) ST elevation (STEMI) myocardial infarction (Acute) Complex sleep apnea syndrome Nocturnal hypoxemia Moderate obstructive sleep apnea Tendinitis of right rotator cuff Status post left knee replacement (~07/2022) Osteoarthritis of right knee Left knee pain Bunionette of left foot Metatarsalgia of left foot Metatarsus adductus of left foot Osteoarthritis of left knee Deltoid bursitis Dilated aortic root Mitral regurgitation mild to moderate on echocardiogram 01/2020 Atrial fibrillation, persistent (Acute) Generalized osteoarthritis Sudden left hearing loss Overweight with body mass index (BMI) 25.0-29.9 Prediabetes diet controlled BPH (benign prostatic hyperplasia) Sensorineural hearing loss (SNHL) of both ears Mixed conductive and sensorineural hearing loss of right ear with restricted hearing of left ear Hypertension controlled, stable per pt-white coat hypertension Hyperlipidemia Disc degeneration, lumbar Chronic sinusitis Cardiomyopathy unknown etiology per [facility] cardio, EF 55-60% on 2022 echo > follows with Dr. Winters PAD (peripheral artery disease) (Chronic) Medical History Hx of melanoma of skin nose, s/p excision Atrial fibrillation Follows with [facility] Cardiology > no pacer Obesity Surgical History S/P peripheral artery angioplasty with stent placement 05/02/22 at [facility] (left leg) Hx of melanoma excision History of esophagogastroduodenoscopy (EGD) History of colonoscopy History of arthroscopy of knee multiple (bilateral) History of total knee arthroplasty bilat Family History Unknown Snoring FHx: deafness or hearing loss Mother Breast cancer FHx: deafness or hearing loss Sister Colon cancer FHx: deafness or hearing loss Social History Smoking Status: Former smoker Tobacco Type: Cigarettes Age Started Using Tobacco: 15; Age Quit Using Tobacco: 30; packs per day: 2; Second Hand Exposure: No; Do You Dip or Chew Tobacco: No; Hx Alcohol Use: No Hx Substance Use: No Preferred Language: Tajik Communication Ability: Unable Communication Ability Comment: Bilateral hearing aids Hearing Ability: Use of Hearing Aid Bathhouse Keeper Required: No Beliefs That Will Affect Care: Episcopal Episcopal Beliefs: 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 No specific healthcare practices. 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 Other Information That Helps Us Care for You: No Feels Safe at Home: Yes Diet: Weight Watchers caffeine: Yes Dental Care, Regularly: Yes Physical Activity Frequency: Daily Seatbelt Use: always Sunscreen Use: Yes Do you think of yourself as: straight/heterosexual Gender Identity: Male Assistive Devices: CPAP, Glasses and Hearing Aid - Bilateral Allergies Allergies Allergy/AdvReac Type Severity Reaction Status Date / Time No Known Allergies Allergy Verified 12/15/23 10:53 Home Meds Home Medications Medication Instructions Recorded Confirmed multivitamin 1 tab PO QAM 07/15/22 02/03/24 acetaminophen 500 mg tablet 500 mg PO QAM 05/04/23 02/03/24 Previous Rx's Medication Instructions Recorded tamsulosin 0.4 mg capsule (Flomax) 0.4 mg PO BID #180 caps 12/04/22 apixaban 5 mg tablet (Eliquis) 5 mg PO BID #60 tabs 08/23/23 carvedilol 3.125 mg tablet 3.125 mg PO BID #180 tabs 10/01/23 metformin 500 mg tablet,extended 500 mg PO BID #180 tabs 11/10/23 release 24 hr sacubitril 24 mg-valsartan 26 mg 1 tab PO BID #180 tabs 12/01/23 tablet (Entresto) CPAP Machine #1 ea 12/15/23 Results & Data (ED) Vital Signs Vital Signs - 24 hr 02/03/24 11:18 Pulse Rate 130 H Respiratory Rate 22 Respiratory Effort / Characteristics Mechanically Ventilated Respiratory Pattern Regular Blood Pressure 107/82 Blood Pressure Mean 90 Pulse Oximetry 98 Oxygen Delivery Method Mechanical Vent Sepsis New/Unexplained Change in Mental Status No Sepsis Action Taken by Nursing No Action Required Laboratory Data Attestation: I reviewed the patient's lab results. 02/03/24 13:15 02/03/24 13:15 Lab Results 02/03/24 Range/Units 11:24 WBC Cancelled RBC Cancelled Hgb Cancelled Hct Cancelled MCV Cancelled MCH Cancelled MCHC Cancelled RDW Std Deviation Cancelled RDW Coeff of Juan Cancelled Plt Count Cancelled MPV Cancelled Immature Gran % (Auto) Cancelled Neut % (Auto) Cancelled Lymph % (Auto) Cancelled Sharp % (Auto) Cancelled Eos % (Auto) Cancelled Baso % (Auto) Cancelled Neut # (Auto) Cancelled Lymph # (Auto) Cancelled Sharp # (Auto) Cancelled Eos # (Auto) Cancelled Baso # (Auto) Cancelled Immature Gran # (Auto) Cancelled Absolute Nucleated RBC Cancelled Nucleated RBC % (auto) Cancelled Neutrophils % (Manual) Cancelled Band Neutrophils % Cancelled Lymphocytes % (Manual) Cancelled Prolymphocyte % Cancelled Reactive Lymphs % (Man) Cancelled Monocytes % (Manual) Cancelled Eosinophils % (Manual) Cancelled Basophils % (Manual) Cancelled Metamyelocytes % (Man) Cancelled Myelocytes % (Man) Cancelled Promyelocytes % (Man) Cancelled Blast Cells % (Manual) Cancelled Plasma Cell % (Manual) Cancelled Other Cells % Cancelled Nucleated RBC % Cancelled Neutrophils # (Manual) Cancelled Band Neutrophils # Cancelled Total Absolute Neuts Cancelled Lymphocytes # (Manual) Cancelled Prolymphocyte # Cancelled Reactive Lymphs # Cancelled Total Abs Lymphocytes Cancelled Monocytes # (Manual) Cancelled Eosinophils # (Manual) Cancelled Basophils # (Manual) Cancelled Metamyelocytes # (Man) Cancelled Myelocytes # (Manual) Cancelled Promyelocytes # (Man) Cancelled Blast Cells # (Man) Cancelled Plasma Cell # (Manual) Cancelled Other Cells # Cancelled Nucleated RBCs # (Man) Cancelled Hypersegmented Neuts Cancelled Hyposegmented Neuts Cancelled Hypogranular Neuts Cancelled Large Granular Lymphs Cancelled # Lrg Granular Lymphs Cancelled Hairy Cells Cancelled Smudge Cells Cancelled Toxic Granulation Cancelled Toxic Vacuolation Cancelled Dohle Bodies Cancelled Alena Rods Cancelled Platelet Estimate Cancelled Hypogranular Platelets Cancelled Giant Platelets Cancelled Platelet Satelliting Cancelled RBC Morphology Cancelled Polychromasia Cancelled Hypochromasia Cancelled Poikilocytosis Cancelled Basophilic Stippling Cancelled Anisocytosis Cancelled Microcytosis Cancelled Macrocytosis Cancelled Spherocytes Cancelled Pappenheimer Bodies Cancelled Sickle Cells Cancelled Target Cells Cancelled Tear Drop Cells Cancelled Ovalocytes Cancelled Stomatocytes Cancelled Coughlin-Worden Bodies Cancelled Echinocytes Cancelled Acanthocytes (Spur) Cancelled Rouleaux Cancelled RBC Agglutinates Cancelled Schistocytes Cancelled Sezary Cell Cancelled PT Cancelled INR Cancelled APTT Cancelled PTT Ratio Cancelled Sodium Cancelled Potassium Cancelled Chloride Cancelled Carbon Dioxide Cancelled Anion Gap Cancelled BUN Cancelled Creatinine Cancelled Est Cr Clr Drug Dosing Cancelled eGFR Cancelled BUN/Creatinine Ratio Cancelled Glucose Cancelled Calcium Cancelled Magnesium Cancelled Total Bilirubin Cancelled AST Cancelled ALT Cancelled Alkaline Phosphatase Cancelled Total Creatine Kinase Cancelled Troponin I High Sens Cancelled B-Natriuretic Peptide 69 (0-100) pg/ml Total Protein Cancelled Albumin Cancelled Globulin Cancelled Albumin/Globulin Ratio Cancelled Lipase Cancelled TSH Cancelled Blood Parasites ID Cancelled Administered Medications Norepinephrine Bitartrate (Levophed/D5w) 4 mg in 250 mls @ 21.938 mls/hr IV .[id number] [facility]; Protocol Stop: 03/04/24 13:44 Last Titration: 02/03/24 19:14 Dose: 0.04 mcg/kg/min, 17.6 mls/hr Documented By: NYLA Co-signed By: JULIETA Admin: 02/03/24 16:44 Dose: 0.04 mcg/kg/min, 17.6 mls/hr Documented By: KIKO Co-signed By: NYLA Amiodarone HCl/Dextrose (Nexterone / D5w) 360 mg in 200 mls @ 16.667 mls/hr IV .Q12H [facility]I Stop: 03/04/24 19:29 Last Infusion: 02/03/24 19:14 Dose: 0.5 mg/min, 16.7 mls/hr Documented By: NMS Co-signed By: JULIETA Admin: 02/03/24 17:47 Dose: 0.5 mg/min, 16.7 mls/hr Documented By: ES Co-signed By: NYLA Fentanyl Citrate (Fentanyl Citrate) 2,500 mcg in 250 mls @ 5 mls/hr IV .Q50H MEHDI; Protocol Stop: 02/17/24 15:59 Last Titration: 02/03/24 19:14 Dose: 50 mcg/hr, 5 mls/hr Documented By: NMS Co-signed By: JULIETA Titration: 02/03/24 17:48 Dose: 50 mcg/hr, 5 mls/hr Documented By: ES Co-signed By: NMS Admin: 02/03/24 16:44 Dose: 25 mcg/hr, 2.5 mls/hr Documented By: ES Co-signed By: NMS Propofol (Diprivan) 1,000 mg in 100 mls @ 13.02 mls/hr IV .[id number] [facility]HDI; Protocol Stop: 02/06/24 15:59 Last Titration: 02/03/24 19:14 Dose: 10 mcg/kg/min, 6.5 mls/hr Documented By: NMS Co-signed By: JULIETA Admin: 02/03/24 16:45 Dose: 10 mcg/kg/min, 6.5 mls/hr Documented By: ES Co-signed By: NYLA Miscellaneous (Icu Protocol For Hyperglycemia) 1 each N/A ACHS MEHDI Stop: 02/05/24 16:29 Last Admin: 02/03/24 15:47 Dose: Not Given Documented By: ES Discontinued Medications Amiodarone HCl/Dextrose (Amiodarone 360mg / 200ml D5w) Confirm Administered Dose 360 mg IV .STK-MED ONE Stop: 02/03/24 11:05 Last Admin: 02/03/24 11:56 Dose: 360 mg Documented By: DBW Co-signed By: BIANCA Fentanyl Citrate (Fentanyl Citrate Pf 100 Mcg/2 Ml Vial) Confirm Administered Dose 100 mcg .ROUTE .STK-MED ONE Stop: 02/03/24 11:12 Last Admin: 02/03/24 13:33 Dose: 100 mcg [place]ed By: [facility] [place] Citrate (Fentanyl Citrate Pf 100 Mcg/2 Ml Vial) Confirm Administered Dose 100 mcg .ROUTE .STK-MED ONE Stop: 02/03/24 11:45 Last Increment: 02/03/24 13:34 Dose: 25 mcg Documented By: [facility] [place]ent[place] Citrate (Fentanyl Citrate 2,500 Mcg/250 Ml Bag) Confirm Administered Dose 2,500 mcg IV .STK-MED ONE Stop: 02/03/24 15:08 Last Admin: 02/03/24 15:47 Dose: Not Given Documented By: KIKO Heparin Sodium (Porcine) (Heparin Sod (Porcine) 1000 Unit/Ml) Confirm Administered Dose 1,000 units .ROUTE .STK-MED ONE Stop: 02/03/24 10:51 Last Admin: 02/03/24 14:50 Dose: Not Given Documented By: KIKO Heparin Sodium (Porcine) (Heparin (Porcine) 1000 Unit/Ml 10 Ml ([employer] Use Only)) Confirm Administered Dose 10,000 units .ROUTE .STK-MED ONE Stop: 02/03/24 11:11 Last Admin: 02/03/24 13:33 Dose: Not Given Documented By: [facility] [place] Sodium (Porcine) (Heparin (Porcine) 1000 Unit/Ml 10 Ml ([employer] Use Only)) Confirm Administered Dose 10,000 units .ROUTE .STK-MED ONE Stop: 02/03/24 12:53 Last Admin: 02/03/24 13:35 Dose: 9,000 units Documented By: [facility] [place]arin Sodium/Sodium Chloride (Heparin In Nss Infusion 1000 Unit/500 Ml (2 U/Ml) Bag) Confirm Administered Dose 3,000 units IV .STK-MED ONE Stop: 02/03/24 11:12 Last Admin: 02/03/24 11:55 Dose: 3,000 units Documented By: ANDREW Amiodarone HCl/Dextrose (Nexterone / D5w) 360 mg in 200 mls @ 33.333 mls/hr IV ONE ONE; Protocol Stop: 02/03/24 19:30 Last Infusion: 02/03/24 17:48 Dose: Infused Documented By: KIKO Co-signed By: NYLA Admin: 02/03/24 14:57 Dose: 1 mg/min, 33.3 mls/hr Documented By: NYLA Co-signed By: TAN Ioversol (Optiray 350) Confirm Administered Dose 1 ml .ROUTE .STK-MED ONE Stop: 02/03/24 11:13 Last Admin: 02/03/24 14:51 Dose: Not Given Documented By: NYLA Midazolam HCl (Midazolam Hcl 1 Mg/Ml 2ml Vial) Confirm Administered Dose 2 mg .ROUTE .STK-MED ONE Stop: 02/03/24 11:10 Last Admin: 02/03/24 13:33 Dose: 2 mg Documented By: BIANCA Midazolam HCl (Midazolam Hcl 1 Mg/Ml 2ml Vial) Confirm Administered Dose 2 mg .ROUTE .STK-MED ONE Stop: 02/03/24 11:11 Last Admin: 02/03/24 11:13 Dose: 2 mg Documented By: VIKI Midazolam HCl (Midazolam Hcl 1 Mg/Ml 2ml Vial) Confirm Administered Dose 2 mg .ROUTE .STK-MED ONE Stop: 02/03/24 11:45 Last Admin: 02/03/24 13:34 Dose: 2 mg Documented By: BIANCA Midazolam HCl (Midazolam Hcl 1 Mg/Ml 2ml Vial) Confirm Administered Dose 2 mg .ROUTE .STK-MED ONE Stop: 02/03/24 12:27 Last Increment: 02/03/24 12:30 Dose: 1 mg Documented By: BIANCA Nicardipine HCl (Nicardipine Hcl Inj 2.5 Mg/Ml 10 Ml Amp) Confirm Administered Dose 25 mg .ROUTE .STK-MED ONE Stop: 02/03/24 11:12 Last Admin: 02/03/24 11:55 Dose: 25 mg Documented By: ANDREW Nitroglycerin/Dextrose (Nitroglycerin/D5w 100mcg/Ml 20ml Syr) Confirm Administered Dose 2,000 mcg .ROUTE .STK-MED ONE Stop: 02/03/24 11:13 Last Admin: 02/03/24 11:55 Dose: 2,000 mcg Documented By: ANDREW Norepinephrine Bitartrate (Norepinephrine/D5w 4 Mg/250 Ml) Confirm Administered Dose 4 mg IV .STK-MED ONE Stop: 02/03/24 11:24 Last Admin: 02/03/24 14:52 Dose: Not Given Documented By: NYLA Propofol (Propofol Iv Emulsion 10 Mg/Ml 100 Ml Vial) Confirm Administered Dose 1,000 mg IV .STK-MED ONE Stop: 02/03/24 15:08 Last Admin: 02/03/24 15:47 Dose: Not Given Documented By: ES Ticagrelor (Ticagrelor 90 Mg Tab) Confirm Administered Dose 180 mg .ROUTE .STK- MED ONE Stop: 02/03/24 10:50 Last Admin: 02/03/24 13:32 Dose: 180 mg Documented By: TLF Ticagrelor (Ticagrelor 90 Mg Tab) Confirm Administered Dose 180 mg .ROUTE .STK- MED ONE Stop: 02/03/24 12:52 Last Admin: 02/03/24 14:52 Dose: Not Given Documented By: NMS Imaging Data Radiologist's Impression: Cervical Spine CT 02/03/24 10:50 CT cervical spine wo con CT DOSE: 1311.34 mGy.cm CLINICAL HISTORY: 73 years-old Male with head strike, cardiac arrest. Acute head and neck injury status post fall COMPARISON: Head CT of same day TECHNIQUE: Multiple axial CT images of the cervical spine were obtained without contrast. A dose lowering technique was utilized adhering to the principles of ALARA. FINDINGS: Small ill-defined sclerotic focus involves the posterior elements of C2, likely a bone island. Mild to moderate intervertebral disc space narrowing, spondylitic spurring and facet arthrosis. No acute fracture or subluxation. Endotracheal tube. Multilevel neural foraminal narrowing, suboptimally evaluated by CT technique. Secretions within the airway. The cervical soft tissues appear unremarkable. The visualized lung apices appear clear. The intracranial findings will be dictated separately. IMPRESSION: No acute cervical spine fracture or subluxation identified. ACT 112: Negative or not required by law. The above report was generated using voice recognition software. It may contain grammatical, syntax or spelling errors. Electronically signed by: Shiva Ponce M.D. 02/03/2024 11:[address] 02/03/24 10:50 CT SCAN OF THE BRAIN WITHOUT IV CONTRAST CLINICAL HISTORY: Cardiac arrest. Head injury. COMPARISON STUDY: MRI of the brain dated 05/07/2017. TECHNIQUE: Unenhanced axial CT scan of the brain is performed from the vertex to the skull base. A dose lowering technique was utilized adhering to the principles of ALARA. The examination is degraded by motion artifact as well as by suboptimal positioning within the CT gantry. There is also streak artifact from metallic electrodes. FINDINGS: An endotracheal tube is noted on the joss house keeper tomogram. Brain parenchyma: There is age-related involutional change. Question diffuse loss of mendoza-white matter differentiation. There is no hemorrhage, mass effect, or evidence of acute territorial ischemia by CT criteria. No extra-axial fluid collection is seen. Ventricles, sulci, cisterns: Prominent secondary to involutional change. Intracranial vasculature: There is atherosclerotic calcification of the cavernous carotid and vertebral arteries. Calvarium: Unremarkable. Soft tissues: There is a frontal scalp hematoma. Sinuses and mastoids: Moderate mucosal thickening is noted in the ethmoid sinuses. There is trace mucosal thickening within the maxillary sinuses. Air- fluid levels are noted in the sphenoid sinuses. There are small mastoid effusions. Orbits: The bony orbits are grossly intact. IMPRESSION: 1. Question diffuse loss of mendoza-white matter differentiation. This is difficult to assess due to the degree of artifact but is suspicious for diffuse cerebral edema/a global hypoxic ischemic event. Correlate clinically. 2. There is no hemorrhage or midline shift. 3. Frontal scalp hematoma. ACT 112: Negative or not required by law. Electronically signed by: Jayy German M.D. 02/03/2024 11:29 AM Discharge Plan Visit Data Chief Complaint: Heart Alert Stated Complaint: POST CARDIAC ARREST ED Provider: Feng Gracia Discharge Problem: ST elevation (STEMI) myocardial infarction, Contusion of forehead, Atrial fibrillation, persistent, On apixaban therapy, Cardiac arrest with ventricular fibrillation Patient Disposition: Admitted As Inpatient Discharge Instructions Interventions: ED Discharge Assessment Last Done: 02/03/24 11:32 Discharge Problem: ST elevation (STEMI) myocardial infarction Qualifiers: Involved coronary artery: right coronary artery Qualified Code(s): I21.11 - ST elevation (STEMI) myocardial infarction involving right coronary artery Contusion of forehead Qualifiers: Encounter type: initial encounter Qualified Code(s): S00.83XA - Contusion of other part of head, initial encounter
--- NOTE | 2024-02-03 11:39 | Cardiology Consultation ---
Date of Consultation February 03, 2024 Assessment & Plan (1) ST elevation (STEMI) myocardial infarction: Presentation consistent with inferior STEMI leading to OHCA and recommend proceeding with emergent cardiac catheterization and likely primary PCI. Further recommendations pending findings of coronary angiography. History of Present Illness History of Present Illness 73-year-old male seen today emergently in ED as a heart alert after out of hospital cardiac arrest with post ROSC inferior ST elevation. Patient known to me from management of his lower extremity PAD. Previously underwent left SFA endovascular intervention 04/2022 in the setting of nonhealing wound. Other cardiac history remarkable for recovered presumed nonischemic cardiomyopathy (most recent echo 05/2022 EF 55%), permanent atrial fibrillation on Eliquis, hypertension and ARACELIS. 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 He had stepped outside and later found down on the ground. Received immediate bystander CPR. VF noted on EMS arrival. Defibrillation x 3, multiple rounds of epinephrine before ROSC. Loaded with IV amiodarone. Abrasion noted over bridge of his nose and underwent CT on arrival which showed no ICH. On arrival sedated, intubated. Borderline blood pressures and started on norepinephrine. Initial ECG showed chronic right bundle branch block and A-fib with improved inferior ST elevations. Allergies Allergy/AdvReac Type Severity Reaction Status Date / Time No Known Allergies Allergy Verified 12/15/23 10:53 Home Medications Medication Instructions Recorded Confirmed Type multivitamin 1 tab PO QAM 07/15/22 02/03/24 History tamsulosin 0.4 mg capsule (Flomax) 0.4 mg PO BID #180 caps 12/04/22 02/03/24 Rx acetaminophen 500 mg tablet 500 mg PO QAM 05/04/23 02/03/24 History apixaban 5 mg tablet (Eliquis) 5 mg PO BID #60 tabs 08/23/23 02/03/24 Rx carvedilol 3.125 mg tablet 3.125 mg PO BID #180 tabs 10/01/23 02/03/24 Rx metformin 500 mg tablet,extended 500 mg PO BID #180 tabs 11/10/23 02/03/24 Rx release 24 hr sacubitril 24 mg-valsartan 26 mg 1 tab PO BID #180 tabs 12/01/23 02/03/24 Rx tablet (Entresto) CPAP Machine #1 ea 12/15/23 12/15/23 Rx Patient History Medical History Hx of melanoma of skin nose, s/p excision Atrial fibrillation Follows with [facility] > no pacer Obesity Surgical History S/P peripheral artery angioplasty with stent placement 05/02/22 at [facility] (left leg) Hx of melanoma excision History of esophagogastroduodenoscopy (EGD) History of colonoscopy History of arthroscopy of knee multiple (bilateral) History of total knee arthroplasty bilat Family History Unknown Snoring FHx: deafness or hearing loss Mother Breast cancer FHx: deafness or hearing loss Sister Colon cancer FHx: deafness or hearing loss Social History Smoking Status: Former smoker Tobacco Type: Cigarettes Age Started Using Tobacco: 15; Age Quit Using Tobacco: 30; packs per day: 2; Second Hand Exposure: No; Do You Dip or Chew Tobacco: No; Hx Alcohol Use: No Hx Substance Use: No Preferred Language: Ukrainian Communication Ability: Effective Communication Ability Comment: Bilateral hearing aids Hearing Ability: Use of Hearing Aid Mold Runner Required: No Beliefs That Will Affect Care: Mosque 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 2+ PARTS SALES MANAGER pulses Abdomen: Soft Extremities: Distal extremities cool, no edema Neuro: Nonpurposeful movements Results & Data Vital Signs (Past 12 Hours) Vital Signs Pulse Resp BP Pulse Ox O2 Del Method 02/03/24 11:18 130 H 22 107/82 98 Mechanical Vent PG Care Time/CCT Total # of Minutes Spent Total Time Spent with Patient: Total time spent is greater than 50% in coordination of care (as documented) at patient's floor/unit and/or counseling patient: Coding Level of Care Code 14074 ER DEPT VISIT HIGH LVL [address] elevation (STEMI) myocardial infarction I21.3
--- NOTE | 2024-02-03 11:42 | CT Scan Report ---
CT cervical spine wo con CT DOSE: 1311.34 mGy.cm CLINICAL HISTORY: 73 years-old Male with head strike, cardiac arrest. Acute head and neck injury sta tus post fall COMPARISON: Head CT of same day TECHNIQUE: Multiple axial CT images of the cervical spine were obtained without contrast. A dose low ering technique was utilized adhering to the principles of ALARA. FINDINGS: Small ill-defined sclerotic focus involves the posterior elements of C2, likely a bone davon nd. Mild to moderate intervertebral disc space narrowing, spondylitic spurring and facet arthrosis. N o acute fracture or subluxation. Endotracheal tube. Multilevel neural foraminal narrowing, suboptimal ly evaluated by CT technique. Secretions within the airway. The cervical soft tissues appear unremarkable. The visualized lung apices appear clear. The intracra nial findings will be dictated separately. IMPRESSION: No acute cervical spine fracture or subluxation identified. ACT 112: Negative or not required by law. The above report was generated using voice recognition software. It may contain grammatical, syntax o r spelling errors. Electronically signed by: Shiva Ponce M.D. 02/03/2024 11:39 AM
[2024-02-03] MEDS: niCARdipine HCL INJ 2.5 MG/ML 10 ML AMP ONE (11:55)
[2024-02-03] MEDS: NITROGLYCERIN/D5W 100MCG/ML 20ML SYR ONE (11:55)
[2024-02-03] MEDS: AMIODARONE 360MG / 200ML D5W IV ONE (11:56)
[2024-02-03 13:24] LABS: iSTAT Arterial Blood Gas HCO3 21 meg/L (19-24); iSTAT Arterial Blood Gas pCO2 45 mmHg (35-46); iSTAT Arterial Blood Gas pH 7.28 (7.35-7.45); iSTAT Arterial Blood Gas pO2 86 mmHg (80-95); iSTAT Carbon Dioxide 22 mmol/L (24-31); iSTAT Hematocrit 42 % (42-52); iSTAT Hemoglobin 14.3 g/dl (14.0-18.0); iSTAT Potassium 4.9 mmol/L (3.3-5.0); iSTAT Sodium 136 mmol/L (135-144)
[2024-02-03 13:24] LABS: iSTAT Arterial Blood Gas HCO3 22 meg/L (19-24); iSTAT Arterial Blood Gas pCO2 55 mmHg (35-46); iSTAT Arterial Blood Gas pO2 247 mmHg (80-95); iSTAT Carbon Dioxide 23 mmol/L (24-31); iSTAT Hematocrit 43 % (42-52); iSTAT Hemoglobin 14.6 g/dl (14.0-18.0); iSTAT Potassium 4.5 mmol/L (3.3-5.0); iSTAT Sodium 136 mmol/L (135-144)
[2024-02-03 13:30] LABS: Basophils # (auto) 0.07 K/uL (0.00-0.20); Basophils % (auto) 0.4 %; Eosinophils % (auto) 0.6 %; Hematocrit (blood only) 43.2 % (42.0-52.0); Hemoglobin 14.5 g/dl (14.0-18.0); Immature Granulocytes # (auto) 0.08 K/uL (0.01-0.20); Immature Granulocytes % (auto) 0.5 %; Lymphocytes # (auto) 0.93 K/uL (1.20-3.40); Lymphocytes % (auto) 5.8 %; Mean Corpuscular Hgb Conc 33.6 g/dL (32.0-36.0); Mean Corpuscular Volume 92.5 fL (80.0-100.0); Mean Platelet Volume 12.7 fL (9.4-12.4); Monocytes # (auto) 0.77 K/uL (0.11-0.59); Monocytes % (auto) 4.8 %; Neutrophils # (auto) 13.95 K/uL (1.40-6.50); Neutrophils % (auto) 87.9 %; Platelet Count 132 K/uL (130-400); RDW Coefficient of Variation 14.6 % (11.5-14.5); RDW Standard Deviation 49.3 fL (36.4-46.3); Red Blood Count 4.67 M/uL (4.70-6.10)
[2024-02-03] MEDS ORDERED: STAT IV Infusion **Titration per Protocol STA ×2 (13:31→15:51)
[2024-02-03] MEDS ORDERED: 0.2 MICRON FILTER SET 1 EACH IV ONE (13:31)
[2024-02-03] MEDS: TICAGRELOR 90 MG TAB ONE ×2 (13:32→14:52)
[2024-02-03] MEDS: HEPARIN (PORCINE) 1000 UNIT/ML 10 ML (CATH LAB USE ONLY) ONE ×2 (13:33→13:35)
[2024-02-03] MEDS: fentaNYL citrate PF 100 MCG/2 ML VIAL ONE ×2 (13:33→13:34)
[2024-02-03 13:46] LABS: Anion Gap 10 (3-11); Calcium 8.8 mg/dl (8.6-10.3); Carbon Dioxide 22 mmol/L (21-32); Chloride 104 mmol/L (98-107); Magnesium 1.7 mg/dl (1.7-2.4); Potassium 4.8 mmol/L (3.5-5.1); Sodium 136 mmol/L (136-145)
[2024-02-03 13:52] LABS: Alanine Aminotransferase 83 U/L (7-52); Albumin Globulin Ratio 1.9 (0.9-2); Alkaline Phosphatase 81 U/L (34-104); Aspartate Aminotransferase 86 U/L (13-39); BUN Creatinine Ratio 22.7 (10-20); Blood Urea Nitrogen 32 mg/dl (6-23); Creatine Kinase 247 U/L (30-223); Globulin 2.1 gm/dl (2.5-4.0); Glucose 229 mg/dl (70-99(Fasting)); Lactate Dehydrogenase 302 U/L (86-244); Lipase 122 U/L (11-82); Total Protein 6.1 gm/dl (6.0-8.3)
[2024-02-03 13:59] LABS: Troponin I High Sensitivity 121.4 pg/ml (0-20)
[2024-02-03 14:05] LABS: Thyroid Stimulating Hormone 3.382 uIu/ml (0.300-4.500)
[2024-02-03 14:06] LABS: INR 1.2 (0.9-1.1); Partial Thromboplastin Ratio > 4.9; Prothrombin Time 12.4 Seconds (9.0-12.0)
--- NOTE | 2024-02-03 14:10 | Cardiac Catheterization ---
[facility] Data: Trucker Hand Cardiac Status Clinical evaluation leading to the procedure CAD Presenation: STEMI Diagnostic Physicians Name: Geovanni Gtz MD Closure Device Recommendations: PCI without planned CABG Cardiac Cath Procedure Full Procedure Date February 03, 2024 Pre-Procedure Diagnosis Pre-Procedure Diagnosis: STEMI AUC Score AUC Score: 9 Post-Procedure Diagnosis Post-Procedure Diagnosis: Severe CAD, Successful PCI and Normal Intracardiac Pressures Procedure(s) Performed Procedure(s) Performed: Coronary Angiography, Left Heart Cath, Drug Eluting Stent, Ultrasound Guided Vascular Access and IVUS Welder Journeyman Geovanni Gtz MD Law Librarian(s) Marlene Estimated Blood Loss Estimated Blood Loss: 20 Medication(s) Medication(s): Fentanyl, Heparin, Lidocaine 1%, Nicardipine, Nitroglycerin and Versed Medication(s): Ticagrelor Summary of Findings Indication: STEMI/Heart Alert Access: 6 Fr slender right radial artery under ultrasound guidance Catheters: [place], JR4 guide, pigtail Findings: LM -normal caliber, no significant disease LAD -calcified, medium caliber, 40-50% lateproximal stenosis, 30% mid segment disease across takeoff of second diagonal. Distal vessel tortuous and wraps around apex. LAD provides faint uqbc-cr-vhdan collaterals to PDA/PLBs. Ramussmall, no significant disease Circumflex -small to medium caliber, 70% stenosis in mid to distal vessel extending across takeoff of OM 2. OM 2 with 40% proximal stenosis RCA -dominant, large caliber, calcified 40-50% lateproximal, 40-50% mid hazy stenosis, 100% acute distal occlusion LVEDP -8 -- PCI -- Antithrombotic therapy: Heparin, ticagrelor Procedure: RCA cannulated with JR4 guide Crusher Tender 50 wire passed across lesion into distal vessel Unable to pass 2.5 balloon across distal occlusion With the aid of a GuideLiner able to dilate distal RCA with 2.0 and 2.5 balloons Dilated lesion stented with 2.5 x 18 mm [place] extending to takeoff of PDA Noted to have residual 60 to 70% distal disease at crux/early distal RCA. Second DIANE (3.0 x 18 mm Doyle) placed to distal RCA with attempt to overlap with proximal aspect of initial stent Stent post-dilated with 3.5 noncompliant balloon IC vasodilators administered for spasm Haziness noted in distal RCA at junction of 2 stents. RCA rewired with [place] blue wire Dhillon IVUS catheter placed to distal RCA. Pullback revealed well-expanded, well apposed stent with apparent gap between 2 stents and moderate residual stenosis Third DIANE (3.0 x 8 mm Doyle) placed across apparent gap between initial stents. Stent postdilated with 3.5 NC Repeat angiography revealed improved haziness in distal RCA stents with AMNA-3 flow. Was noted to have possible dissection flap in mid RCA. Repeat IVUS confirmed ruptured plaque versus dissection in mid RCA. Additional DIANE placed to mid RCA (3.5 x 18 [place]). Postdilated with stent balloon Post procedure AMNA 3 flow, stents well expanded with minimal residual stenosis and no apparent cardiac complications. During procedure remained hemodynamically and electrically stable on norepinephrine 0.1 and amiodarone infusion. Nonpurposeful movements. Sedation with bolus Versed/fentanyl (1/125). Arterial Closure: TR band Summary: 1. Nmb-ca-bgpdvayi cardiac arrest 2. Inferior STEMI/acute 100% distal RCA occlusion 3. Multivessel non-culprit coronary artery disease -70% small mid to distal circumflex 40-50% proximal LAD 40-50% proximal RCA, 40-50% hazy mid RCA with dissection versus plaque rupture on IVUS 4. Normal intracardiac filling pressure 5. Successful PCI of distal RCA with 3 overlapping drug-eluting stents (3.0 x 18, 3.0 x 8, 2.5 x 18 Doyle; postdilated with 3.5 NC). 6. Successful PCI of mid RCA with additional DIANE (3.5 x 18 mm [place]). Recommendations: Admit to ICU for continued monitoring Wean norepinephrine as able Continue amiodarone infusion overnight Loaded with ticagrelor 180 mg at completion of case Continue triple therapy with aspirin, ticagrelor and anticoagulation while hospitalized Long-term on discharge dual therapy with clopidogrel, Eliquis Trend troponins until peak, Check Echo High-dose statin Hemodynamics Rest Ao:: 115/72/ Final Ao: 115/67/87 LV: 103/8 Recommendations Recommendations: PCI without planned CABG Radiation Exposure (mGy) 5476 Contrast (mls) 130 Anesthesia Moderate 3922-7423 Procedural Complication(s) None Disposition ICU I attest to the content of the Intraoperative Record and any orders documented therein. Any exceptions are noted below. [facility] Card Cath Procedure Codes Cardiac Catheterization Procedure 1: Cardiovascular Cath Procedures: 69962 Coronaries and LHC (+/-LV) Therapeutic Services & Ancillary Procedure 1: Cardiovascular Tx and Anc Procedures: 07378 IV Ultrasound (Coronary or Graft) Procedure 2: Cardiovascular Tx and Anc Procedures: 10882 Ultrasonic Guidance Vascular Access Moderate Sedation Procedure 1: Sedation/Anesthesia: 09985 Mod Sedation by the same physician;Init15 Min Child Age 5 & Up Procedure 2: Sedation/Anesthesia: 08109 Mod Sedation by the same physician; Ea [id number] Minutes Stenting Procedure 1: Cardiovascular Stent Procedures: 64590 Perc transluminal revascularization of acute sub/total occl, aMI PG Care Time/CCT Total # of Minutes Spent Total Time Spent with Patient: Total time spent is greater than 50% in coordination of care (as documented) at patient's floor/unit and/or counseling patient:
[2024-02-03 14:25] LABS: Partial Thromboplastin Time > 139 Seconds (21-31)
[2024-02-03 14:46] LABS: Base Excess VBG -6.7 mEq/L; HCO3 VBG 23 mmol/L; Oxygen Saturation VBG 67.9 %; PCO2 VBG 61 mmHg (38-50); PO2 VBG 44 mmHg; pH VBG 7.18 (7.36-7.41)
[2024-02-03] MEDS: HEPARIN SOD (PORCINE) 1000 UNIT/ML ONE (14:50)
[2024-02-03] MEDS: OPTIRAY 350 ONE (14:51)
[2024-02-03] MEDS: NOREPINEPHRINE/D5W 4 MG/250 ML IV ONE (14:52)
[2024-02-03] MEDS: AMIODARONE / D5W 360 MG/200 ML BAG IV ONE (14:57)
--- NOTE | 2024-02-03 15:36 | Electrocardiogram Report ---
Test Reason : Blood Pressure : */* mmHG Vent. Rate : 130 BPM Atrial Rate : * BPM P-R Int : * ms QRS Dur : 148 ms QT Int : 380 ms P-R-T Axes : * 70 -39 degrees QTcB Int : 559 ms Poor data quality, interpretation may be adversely affected Sinus tachycardia with 1st degree A-V block vs Supraventricular tachycardia Right bundle branch block Cannot rule out Inferior infarct , age undetermined Abnormal ECG When compared with ECG of 13-Aug-2023 12:55, (unconfirmed) Wide QRS tachycardia has replaced Atrial fibrillation Vent. rate has increased by 57 bpm Confirmed by Saman Gaxiola ([id number]) on 02/03/2024 3:36:10 PM Referred By: REFERRED SELF Confirmed By: Saman Gaxiola
[2024-02-03] MEDS: ICU Protocol for HYPERglycemia SCH (15:47)
[2024-02-03] MEDS: PROPOFOL IV EMULSION 10 MG/ML 100 ML VIAL IV ONE (15:47)
[2024-02-03] MEDS: fentaNYL citrate 2,500 MCG/250 ML BAG IV ONE (15:47)
[2024-02-03] MEDS ORDERED: PROPOFOL BOLUS FROM BAG IV PRN (15:57)
[2024-02-03] MEDS ORDERED: ICU Protocol for HYPERglycemia SCH (16:30)
[2024-02-03] MEDS: fentaNYL citrate 2,500 MCG/250 ML BAG IV SCH (16:44)
[2024-02-03] MEDS: NOREPINEPHRINE/D5W 4 MG/250 ML PLCT IV SCH (16:44)
[2024-02-03] MEDS: propofoL 1,000 MG/100 ML VIAL IV SCH (16:45)
--- NOTE | 2024-02-03 16:50 | Critical Care Consultation ---
Date of Consultation February 03, 2024 Assessment & Plan (1) HFrEF (heart failure with reduced ejection fraction): (2) ST elevation (STEMI) myocardial infarction: (3) Contusion of forehead: (4) Cardiac arrest: (5) Complex sleep apnea syndrome: (6) Atrial fibrillation, persistent: (7) Shock circulatory: (8) Transaminitis: Plan Reason Critically Ill: 73-year-old male past medical history of complex sleep apnea, A-fib, systolic CHF presented to the hospital with cardiac arrest. Went to the Technical Advisor and 4 stents were placed in RCA Neuro - [facility] ICU: Unable to assess Sedation: Propofol and fentanyl CT head 02/03/2024 shows blurring of the mendoza-white matter, inclining more towards hypoxic brain injury --Frontal hematoma Secondary to fall from cardiac arrest No bleed on the CT head Cardiac - -- Cardiac arrest with cardiogenic shock S/p 4 stents placed in distal RCA on 02/03/2024 Continue with dual antiplatelet therapy On amiodarone drip Vasopressor support to keep MAP greater than 65 Respiratory - -- Ventilator dependent respiratory failure For airway protection postcardiac arrest Keep RASS -1 Daily sedation holidays and SBT's Chlorhexidine mouthwash GI - -- Transaminitis Likely from shock Continue to trend RENAL/LYTES - -- ANNA MARIE on CKD Secondary to cardiac arrest and hypotension Monitor BUN/creatinine Avoid nephrotoxic medications Strict ins and outs ENDO - ICU hypoglycemia protocol HEME - -- Leukocytosis Likely reactive to cardiac arrest Continue to monitor --History of chronic thrombocytopenia Continue to monitor ID - -- No clear source of infection --Prophylaxis VTE: Heparin subcu, on Eliquis at home GI: Pantoprazole Lines: Peripheral Diet: N.p.o. Plan: Strict in and out Continue with amiodarone drip Will hold Eliquis rather give him subcu heparin CT head already shows loss of mendoza-white matter demarcation, inclining towards hypoxic injury Patient also has agonal breathing and early decerebrate posturing Prognosis does look grim, this was relayed to family at bedside I have personally spent 63 minutes of critical care time in the direct management of this patient. This is a life/limb threatening event. This includes time spent evaluating patient, direct bedside care, chart review, placing orders, interpretation of diagnostic studies, discussion with consultants, patient, and family members, as well as other required patient management activities. This time is exclusive of all separately billable procedures, and teaching time and separate from and in addition to any other critical care service time. History of Present Illness Attending Physician: Hernandez Zuleta MD History of Present Illness 73-year-old male was brought to the hospital in cardiac arrest Past medical history: ARACELIS, systolic CHF, A-fib on Eliquis Patient was sent to the ICU post cardiac cath and stent placement In the room at the time of examination patient's , friend as well as Early were present Patient was breathing over the vent, he had agonal breathing. Systolic blood pressure was in the 120s. He was not following any commands. Did have cough on suctioning. As per the he went to the restorationist today where he started to not feel well just prior to collapsing. CPR was initiated right away and then 911 was called Patient got 3 doses of epi and 1 dose of atropine prehospital Allergies Allergy/AdvReac Type Severity Reaction Status Date / Time No Known Allergies Allergy Verified 12/15/23 10:53 Home Medications Medication Instructions Recorded Confirmed Type multivitamin 1 tab PO QAM 07/15/22 02/03/24 History tamsulosin 0.4 mg capsule (Flomax) 0.4 mg PO BID #180 caps 12/04/22 02/03/24 Rx acetaminophen 500 mg tablet 500 mg PO QAM 05/04/23 02/03/24 History apixaban 5 mg tablet (Eliquis) 5 mg PO BID #60 tabs 08/23/23 02/03/24 Rx carvedilol 3.125 mg tablet 3.125 mg PO BID #180 tabs 10/01/23 02/03/24 Rx metformin 500 mg tablet,extended 500 mg PO BID #180 tabs 11/10/23 02/03/24 Rx release 24 hr sacubitril 24 mg-valsartan 26 mg 1 tab PO BID #180 tabs 12/01/23 02/03/24 Rx tablet (Entresto) CPAP Machine #1 ea 12/15/23 12/15/23 Rx Patient History Medical History Hx of melanoma of skin nose, s/p excision Atrial fibrillation Follows with [facility]iology > no pacer Obesity Surgical History S/P peripheral artery angioplasty with stent placement 05/02/22 at [facility] (left leg) Hx of melanoma excision History of esophagogastroduodenoscopy (EGD) History of colonoscopy History of arthroscopy of knee multiple (bilateral) History of total knee arthroplasty bilat Family History Unknown Snoring FHx: deafness or hearing loss Mother Breast cancer FHx: deafness or hearing loss Sister Colon cancer FHx: deafness or hearing loss Social History Smoking Status: Former smoker Tobacco Type: Cigarettes Age Started Using Tobacco: 15; Age Quit Using Tobacco: 30; packs per day: 2; Second Hand Exposure: No; Do You Dip or Chew Tobacco: No; Hx Alcohol Use: No Hx Substance Use: No Preferred Language: Mongolian Communication Ability: Effective Communication Ability Comment: Bilateral hearing aids Hearing Ability: Use of Hearing Aid Appeals Referee Required: No Beliefs That Will Affect Care: Scientologist 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 Feels Safe at Home: Yes Diet: Weight Watchers caffeine: Yes Dental Care, Regularly: Yes Physical Activity Frequency: Daily Seatbelt Use: always Sunscreen Use: Yes Do you think of yourself as: straight/heterosexual Gender Identity: Male Assistive Devices: CPAP, Glasses and Hearing Aid - Bilateral Review of Systems 2 Review of Systems: Unobtainable due to endotracheal tube Physical Exam 2 Physical Exam: Constitutional: No acute distress HEENT: Sluggish pupillary response Respiratory system: Good air entry bilaterally, no wheeze, no rhonchi, mild crackles bilaterally CVS: S1-S2 positive, no murmurs or gallops Abdomen: Soft, nontender, nondistended, positive bowel sounds x4 Extremities: +2 pulses bilaterally radialis/ dorsalis pedis, no cyanosis, no edema Neuro: Agonal breathing over the vent, Babinski positive Psych: Unable to assess G/U: Positive Nunez Skin: no rashes, warm and dry Lymphatic: no cervical or axillary lymphadenopathy Results & Data Results & Data Vital Signs (Past 12 Hours) Vital Signs Temp Pulse Resp BP Pulse Ox O2 Del Method FiO2 02/03/24 15:34 77 20 99 60 02/03/24 15:00 Mechanical Vent 60 02/03/24 14:44 35.6 C L 66 20 142/90 H 97 02/03/24 14:12 35.5 C L 72 20 98 02/03/24 11:51 17 92 100 02/03/24 11:18 130 H 22 107/82 98 Mechanical Vent Laboratory Results 02/03/24 13:15 02/03/24 13:15 Coding Level of Care Code 15360 CRITICAL CARE 1ST 30-74M Diagnoses HFrEF (heart failure with reduced ejection fraction) I50.20 ST elevation (STEMI) myocardial infarction I21.3 Contusion of forehead S00.83XA Cardiac arrest I46.9 Complex sleep apnea syndrome G47.31 Atrial fibrillation, persistent I48.19 Shock circulatory R57.9 Transaminitis R74.01
[2024-02-03 17:21] LABS: iSTAT Allen Test Pass; iSTAT Art Bld Gas pCO2 Correct 34 mmHg (35-46); iSTAT Art Bld Gas pH Corrected 7.342 (7.35-7.45); iSTAT Arterial Blood Gas HCO3 19 meg/L (19-24); iSTAT Arterial Blood Gas pCO2 35 mmHg (35-46); iSTAT Arterial Blood Gas pH 7.34 (7.35-7.45); iSTAT Arterial Blood Gas pO2 93 mmHg (80-95); iSTAT Arterial Blood Gas pO2 C 91; iSTAT Carbon Dioxide 20 mmol/L (24-31); iSTAT Hematocrit 42 % (42-52); iSTAT Hemoglobin 14.3 g/dl (14.0-18.0); iSTAT Potassium 4.2 mmol/L (3.3-5.0); iSTAT Site L Brachial; iSTAT Sodium 136 mmol/L (135-144)
[2024-02-03] MEDS: AMIODARONE / D5W 360 MG/200 ML BAG IV SCH (17:47)
--- NOTE | 2024-02-03 21:58 | XCELERA ---
[id number]
[2024-02-03] MEDS: ACETAMINOPHEN SUSP 1000 MG/31.2 ML UDP OG STA (23:19)
[2024-02-04] MEDS: LACTATED RINGER'S 1,000 ML IV SCH (03:14)
[2024-02-04 03:50] LABS: Basophils # (auto) 0.03 K/uL (0.00-0.20); Basophils % (auto) 0.2 %; Eosinophils # (auto) 0.01 K/uL (0.00-0.50); Eosinophils % (auto) 0.1 %; Hematocrit (blood only) 41.5 % (42.0-52.0); Hemoglobin 13.8 g/dl (14.0-18.0); Immature Granulocytes # (auto) 0.06 K/uL (0.01-0.20); Immature Granulocytes % (auto) 0.3 %; Lymphocytes # (auto) 0.61 K/uL (1.20-3.40); Lymphocytes % (auto) 3.2 %; Mean Corpuscular Hemoglobin 31.2 pg (25.0-34.0); Mean Corpuscular Hgb Conc 33.3 g/dL (32.0-36.0); Mean Corpuscular Volume 93.7 fL (80.0-100.0); Mean Platelet Volume 12.5 fL (9.4-12.4); Monocytes # (auto) 1.42 K/uL (0.11-0.59); Monocytes % (auto) 7.5 %; Neutrophils # (auto) 16.82 K/uL (1.40-6.50); Neutrophils % (auto) 88.7 %; Platelet Count 156 K/uL (130-400); RDW Coefficient of Variation 14.6 % (11.5-14.5); RDW Standard Deviation 50.5 fL (36.4-46.3); Red Blood Count 4.43 M/uL (4.70-6.10); White Blood Count 18.95 K/ul (4.8-10.8)
[2024-02-04 04:08] LABS: BUN Creatinine Ratio 18.2 (10-20); Calcium 8.7 mg/dl (8.6-10.3); Chol HDL Ratio 4.3 (0-5); Creatinine Clr Calc Pharmacy 38.3 ml/min; Potassium 5.6 mmol/L (3.5-5.1)
--- NOTE | 2024-02-04 04:12 | Communication Note ---
Date of Service: February 04, 2024 Patient persistently febrile despite scheduled acetaminophen, cooling blanket x2, packing in ice. We are administering cold IVF. Temp checked via rectal probe and temp-sensing rahman catheter and are consistent. Patient is not agitated or tachypneic. Neurologic status is stable. Can consider paralytic to augment control of temperature. Will pursue sepsis work-up with BC, UA/UC, MRSA swab, procalcitonin, sputum cx. Chemistry pending - will add vancomycin and Zosyn with doses based on renal function. Coding Level of Care Code None
[2024-02-04] MEDS ORDERED: VANCOMYCIN CONSULT ACTIVE PRN (04:13)
[2024-02-04 04:26] LABS: iSTAT Allen Test Pass; iSTAT Art Bld Gas pCO2 Correct 29 mmHg (35-46); iSTAT Art Bld Gas pH Corrected 7.377 (7.35-7.45); iSTAT Arterial Blood Gas HCO3 17 meg/L (19-24); iSTAT Arterial Blood Gas pCO2 29 mmHg (35-46); iSTAT Arterial Blood Gas pH 7.38 (7.35-7.45); iSTAT Arterial Blood Gas pO2 64 mmHg (80-95); iSTAT Arterial Blood Gas pO2 C 65; iSTAT Carbon Dioxide 18 mmol/L (24-31); iSTAT FiO2 40 %; iSTAT Hematocrit 41 % (42-52); iSTAT Hemoglobin 13.9 g/dl (14.0-18.0); iSTAT Potassium 5.5 mmol/L (3.3-5.0); iSTAT Site L Radial; iSTAT Sodium 135 mmol/L (135-144)
[2024-02-04] MEDS: ACETAMINOPHEN 1,000 MG/100 ML VIAL IV SCH (04:53)
[2024-02-04] MEDS: 4.5GM X1 IV STA (05:13)
[2024-02-04 05:31] LABS: Appearance Urine Cloudy (Clear); Bacteria Urine Automated None Seen (None Seen); Bilirubin Urine Negative (Negative); Blood Urine 3+ (Negative); Color Urine Dark Yellow; Epithelial Cell Urine Auto 0-2 /hpf (0-2); Glucose Urine UA Negative (Negative); Ketones Urine Trace (Negative); Leukocyte Esterase Urine Trace (Negative); Nitrite Urine Negative (Negative); Protein Urine 1+ (Negative); RBC Urine Automated >20 /hpf (0-2); Specific Gravity Urine > 1.045 (1.000-1.030); Urobilinogen Urine Negative (Negative)
[2024-02-04] MEDS: VANCOMYCIN HCL 2,000 MG in SODIUM CHLORIDE 0.9% 500 ML IV ONE (05:55)
--- NOTE | 2024-02-04 07:14 | XRay Report ---
SINGLE VIEW CHEST CLINICAL HISTORY: Respiratory failure. Intubation. Status post cardiac arrest. FINDINGS: An AP, portable, upright chest radiograph is compared to study dated 07/28/2022. Endotracheal tube has been placed. The tip projects approximately 4.5 cm above the rodo. An enteric tube has be en placed. The tip projects below the diaphragm over the stomach. The heart is enlarged. The pulmonar y vasculature is noncongested. Small pleural effusions are suspected with dependent atelectasis. Ther e are scattered calcified granulomas. No pneumothorax is seen. The skeletal structures are osteopenic . The bony thorax is grossly intact. IMPRESSION: 1. Endotracheal and enteric tubes have been placed as above. 2. Cardiomegaly without radiographic evidence of congestive failure. 3. Suspect small pleural effusions. ACT 112: Negative or not required by law. Electronically signed by: Jayy German M.D. 02/04/2024 7:12 AM
[2024-02-04 07:59] LABS: Estimated Average Glucose 103 mg/dl; Hemoglobin A1C 5.2 % (4.5-5.6)
--- NOTE | 2024-02-04 08:17 | Critical Care Progress Note ---
Date of Service February 04, 2024 Assessment & Plan (1) HFrEF (heart failure with reduced ejection fraction): (2) ST elevation (STEMI) myocardial infarction: (3) Contusion of forehead: (4) Cardiac arrest: (5) Complex sleep apnea syndrome: (6) Atrial fibrillation, persistent: (7) Shock circulatory: (8) Transaminitis: Plan Reason Critically Ill: 73-year-old male past medical history of complex sleep apnea, A-fib, systolic CHF presented to the hospital with cardiac arrest. Went to the [facility] and 4 stents were placed in RCA Neuro - [facility] ICU: Unable to assess Sedation: Propofol and fentanyl CT head 02/03/2024 shows blurring of the mendoza-white matter, inclining more towards hypoxic brain injury --Frontal hematoma Secondary to fall from cardiac arrest No bleed on the CT head Cardiac - -- Cardiac arrest with cardiogenic shock S/p 4 stents placed in distal RCA on 02/03/2024 Continue with dual antiplatelet therapy On amiodarone drip Vasopressor support to keep MAP greater than 65 2D echo 02/03/2024: EF 35-40% Respiratory - -- Ventilator dependent respiratory failure For airway protection postcardiac arrest Keep RASS -1 Daily sedation holidays and SBT's Chlorhexidine mouthwash GI - -- Transaminitis Likely from shock Continue to trend RENAL/LYTES - -- ANNA MARIE on CKD Secondary to cardiac arrest and hypotension Monitor BUN/creatinine Avoid nephrotoxic medications Strict ins and outs ENDO - ICU hypoglycemia protocol HEME - --New onset fever Likely central Blood culture have been ordered Empiric antibiotics for 48 hours Procalcitonin is 2.02 -- Leukocytosis Likely reactive to cardiac arrest Continue to monitor --History of chronic thrombocytopenia Continue to monitor ID - -- No clear source of infection --Prophylaxis VTE: Eliquis GI: Pantoprazole Lines: Peripheral Diet: Start tube feeds Plan: In/out: +1.4 L, urine output 445 Continue with amiodarone drip Resume Eliquis Will give the patient's Plasma-Lyte 125 mL an hour Continue with cooling blanket to keep temperature around 36.8 Lokelma given to the patient for potassium 5.6 Patient's and family who are at bedside were updated regarding his condition I have personally spent 37 minutes of critical care time in the direct management of this patient. This is a life/limb threatening event. This includes time spent evaluating patient, direct bedside care, chart review, placing orders, interpretation of diagnostic studies, discussion with consultants, patient, and family members, as well as other required patient management activities. This time is exclusive of all separately billable procedures, and teaching time and separate from and in addition to any other critical care service time. Admission and Anticipated Discharge Date Admission Date: February 03, 2024 Subjective Patient seen and examined at bedside. No acute distress, no adverse events overnight He was on 25 of fentanyl and 15 of propofol, MAP was in the 100s. He still double triggering underwent Unfortunately his creatinine is going up Rigidity appreciated on passive extension Still breathing over the vent Patient is spontaneously opening the eyes but not following any commands Overnight patient has been spiking fever for which he getting Tylenol Review of Systems 2 Review of Systems: Unobtainable due to cognitive status and Unobtainable due to endotracheal tube Physical Exam 2 Physical Exam: Constitutional: No acute distress HEENT: Sluggish pupillary response Respiratory system: Good air entry bilaterally, no wheeze, no rhonchi, mild crackles bilaterally CVS: S1-S2 positive, no murmurs or gallops Abdomen: Soft, nontender, nondistended, positive bowel sounds x4 Extremities: +2 pulses bilaterally radialis/ dorsalis pedis, no cyanosis, no edema Neuro: Breathing over the vent, Babinski positive, spontaneously opening eyes but not following any commands Psych: Unable to assess G/U: Positive Nunez Skin: no rashes, warm and dry Lymphatic: no cervical or axillary lymphadenopathy Results & Data Results & Data Vital Signs (Past 12 Hours) Vital Signs Temp Pulse Resp BP Pulse Ox FiO2 02/04/24 07:59 37.6 C H 02/04/24 07:29 76 20 94 40 02/04/24 07:21 73 17 95 02/04/24 07:15 101/02/04/24 07:15 101/69 02/04/24 07:06 37.7 C H 74 15 97 02/04/24 07:00 108/69 02/04/24 07:00 108/02/04/24 07:00 37.7 C H 74 23 95 02/04/24 06:48 37.8 C H 74 20 95 02/04/24 06:45 103/73 02/04/24 06:42 37.8 C H 73 21 95 02/04/24 06:33 37.8 C H 68 24 95 02/04/24 06:30 108/68 02/04/24 06:30 108/68 02/04/24 06:09 37.9 C H 73 20 97 02/04/24 06:03 37.9 C H 69 17 96 02/04/24 06:00 106/73 02/04/24 05:45 38.1 C H 72 20 97 02/04/24 05:45 110/75 02/04/24 05:15 38.4 C H 68 11 L 96 02/04/24 05:03 38.5 C H 74 13 94 02/04/24 04:30 38.6 C H 78 17 96 02/04/24 04:18 38.6 C H 75 16 95 02/04/24 04:03 38.6 C H 75 15 94 02/04/24 04:00 40 02/04/24 03:45 38.6 C H 77 15 96 02/04/24 03:45 87/63 L 02/04/24 03:45 87/63 L 02/04/24 03:33 38.6 C H 77 15 94 02/04/24 03:30 91/57 L 02/04/24 03:30 91/57 L 02/04/24 03:18 38.6 C H 79 15 94 02/04/24 03:15 98/63 L 02/04/24 03:15 98/63 L 02/04/24 03:06 38.6 C H 75 15 95 02/04/24 03:00 93/60 L 02/04/24 02:45 92/63 L 02/04/24 02:39 38.6 C H 71 16 95 02/04/24 02:30 124/73 02/04/24 02:30 124/73 02/04/24 02:27 75 17 97 02/04/24 02:18 78 20 100 40 02/04/24 02:15 100/63 02/04/24 02:15 100/02/04/24 02:06 78 17 97 02/04/24 02:00 72 16 98 02/04/24 02:00 103/63 02/04/24 02:00 10302/04/24 01:45 99/59 L 02/04/24 01:42 75 17 99 02/04/24 01:33 76 17 100 02/04/24 01:30 94/60 L 02/04/24 01:30 94/60 L 02/04/24 01:00 80/60 L 02/04/24 01:00 80/60 L 02/04/24 00:54 74 16 98 02/04/24 00:45 86/56 L 02/04/24 00:42 76 15 98 02/04/24 00:30 75 18 98 02/04/24 00:30 89/64 L 02/04/24 00:30 89/64 L 02/04/24 00:06 82 19 98 02/04/24 00:00 99/68 L 02/04/24 00:00 40 02/03/24 23:48 86 17 97 02/03/24 23:45 107/61 02/03/24 23:45 107/61 02/03/24 23:45 83 19 98 02/03/24 23:30 95/66 L 02/03/24 23:30 95/66 L 02/03/24 23:30 81 18 98 02/03/24 23:15 108/64 02/03/24 23:09 79 02/03/24 23:07 79 20 100 40 02/03/24 23:06 38.2 C H 82 19 98 02/03/24 23:00 38.2 C H 81 17 100 02/03/24 23:00 105/68 02/03/24 23:00 105/68 02/03/24 22:45 38.2 C H 78 18 99 02/03/24 22:45 101/68 02/03/24 22:30 108/66 02/03/24 22:15 115/70 02/03/24 22:06 38.0 C H 81 18 99 02/03/24 22:03 38.0 C H 89 18 100 02/03/24 22:00 100/63 02/03/24 22:00 100/63 02/03/24 22:00 100/63 02/03/24 22:00 100/63 02/03/24 21:57 38.0 C H 79 16 99 02/03/24 21:45 107/85 Laboratory Results 02/04/24 03:31 02/04/24 03:31 Coding Level of Care Code 83338 CRITICAL CARE 1ST 30-74M Diagnoses HFrEF (heart failure with reduced ejection fraction) I50.20 ST elevation (STEMI) myocardial infarction I21.11 Involved coronary artery: right coronary artery Contusion of forehead S00.83XA Encounter type: initial encounter Cardiac arrest I46.9 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
[2024-02-04] MEDS: PLASMA-LYTE A 1,000 ML IV SCH ×2 (09:04→16:45)
[2024-02-04] MEDS: ALBUMIN 5% 250 ML IV ONE (09:04)
[2024-02-04] MEDS: TICAGRELOR 90 MG TAB PO SCH (09:36)
[2024-02-04] MEDS: ASPIRIN 81 MG ECTAB PO SCH (09:36)
[2024-02-04] MEDS: ATORVASTATIN 40 MG TAB PO SCH (09:36)
[2024-02-04] MEDS: ASPIRIN 81 MG CHEW PO SCH (09:37)
[2024-02-04] MEDS: SODIUM ZIRCONIUM CYCLOSILICATE 10 GM PACKET PO ONE (09:37)
[2024-02-04 10:34] LABS: Troponin I High Sensitivity 562.3 pg/ml (0-20)
--- NOTE | 2024-02-04 10:44 | Pharmacy Report ---
Pharmacy PK ABX Note - Date of Service February 04, 2024 - Assessment and Plan Assessment 73 year old M receiving Vancomycin and Zosyn empirically for treatment of febrile illness. * Day #1 of antimicrobial therapy. Patient experiencing fevers following cardiac arrest. * Labs/Vitals: Leukocytosis of 18.9. SCr 2.25, CrCl 19. Lactate at 6.7. Procal 2.02. Tmax of 38.6 C. * Micro: Blood cultures pending. MRSA nasal swab negative. Plan Vancomycin * Loading dose: 2000 mg IV x 1 * Maintenance dose: 1000 mg IV every 24 hours * Regimen is predicted to achieve target AUC/KENN of 400-600 mg/L.hr * No level ordered unless therapy extends beyond 48 hours Pharmacy will continue to follow and will adjust dose/frequency as necessary. Thank you. Pharmacy has transitioned to AUC monitoring for vancomycin. AUC/KENN is the preferred PK/PD target and is associated with decreased risk of nephrotoxicity compared to traditional trough targets.
[2024-02-04] MEDS: PIPERACILLIN/TAZOBACTAM 4.5 GM/100 ML BAG IV SCH ×3 (10:46→20:20)
[2024-02-04] MEDS: APIXABAN 5 MG TABLET PO SCH (10:54)
[2024-02-04] MEDS: PANTOprazole 40 MG in SYRINGE DAILY IV SCH (10:54)
--- NOTE | 2024-02-04 11:07 | Electrocardiogram Report ---
Test Reason : Blood Pressure : */* mmHG Vent. Rate : 73 BPM Atrial Rate : 277 BPM P-R Int : * ms QRS Dur : 136 ms QT Int : 452 ms P-R-T Axes : * -31 -35 degrees QTcB Int : 497 ms Atrial fibrillation with a competing junctional pacemaker with premature ventricular or aberrantly co nducted complexes Left axis deviation Right bundle branch block Inferior infarct , age undetermined Abnormal ECG When compared with ECG of 03-Feb-2024 11:23, Atrial fibrillation now present Vent. rate has decreased by 57 bpm Confirmed by Saman Gaxiola ([id number]) on 02/04/2024 11:07:24 AM Referred By: REFERRED SELF Confirmed By: Saman Gaxiola
[2024-02-04] MEDS: NOVASOURCE RENAL 2.0 CAL 1000ML BAG OG SCH (11:57)
[2024-02-04] MEDS: TUBE FEEDING WATER FLUSH OG SCH (11:58)
[2024-02-04 15:37] LABS: Calcium 8.5 mg/dl (8.6-10.3); Potassium 4.7 mmol/L (3.5-5.1)
[2024-02-04 15:43] LABS: BUN Creatinine Ratio 23.7 (10-20); Creatinine Clr Calc Pharmacy 46.7 ml/min
--- NOTE | 2024-02-04 15:45 | Hospitalist Progress Note ---
Date of Service February 04, 2024 Assessment & Plan (1) AMS (altered mental status): Plan: ETT in place Patient was sluggish pupillary response, agonal breathing in ER CThead with loss of mendoza matter demarcation suggesting hypoxic injury Reviewed with ICU. Anticipate repeat CT 02/05/2024. Poor prognosis to which family is aware. Further decision making based on progression over the next [address] (2) ST elevation (STEMI) myocardial infarction: Plan: Inferior STEMI, Heart failure with history of nonischemic cardiomyopathy Rlr-gm-cfmyugry collapse, with a CPR and subsequent ROSC. Received 3 doses of epinephrine and 1 dose of atropine prehospital. Prehospital EKG with inferior ST elevations Taken to the [facility] emergently. Subsequently was found to have distal RCA acute occlusion s/p 4 DIANE. Subsequently moved to the ICU for recovery Echo with EF 35-40% severe inferior/inferolateral/basal inferoseptal hypokinesis. Normal PA pressure. BBlocker and Entresto held for cardiogenic shock requiring pressors, resume once pressures permit Continue DAPT aspirin/Brilinta via OG (3) HFrEF (heart failure with reduced ejection fraction): (4) Atrial fibrillation: Plan: A-fib on Eliquis EKG on admission A-fib. Continued on amiodarone on admission. On apixaban [facility]. This is being transition to SQ heparin Beta-amina held on admission for cardiogenic shock on pressors Patient has had multiple severe GI bleeds and anemia. Did have ERNESTO clipping in 2019, is continued on apixaban and does have some increased risk of VTE with underlying malignancy. Recommend review of ongoing/benefits of anticoagulation with DAPT post stenting once patient able to contribute to conversation (5) Complex sleep apnea syndrome: Plan: Intubated, ventilated (6) Fever: Plan: Fever overnight up to 38.6. Unclear source Broad-spectrum antibiotics Zosyn/vancomycin are continued Procalcitonin is elevated, lactate is elevated No reported infectious symptoms prior to arrest, chest x-ray without obvious pneumonia, UA concentrated but without bacteria/nitrites and only trace leukocyte esterase. Blood cultures pending Plan CODE STATUS: Full code Disposition: ICU post STEMI Diet: N.p.o., ETT in place Admission and Anticipated Discharge Date Admission Date: February 03, 2024 Subjective Seen at the bedside. ETT in place. Subjective on [place] from patient due to cognitive status, ETT in place Physical Exam Physical Exam: General: Intubated, sedated HEENT: Pupils equal, weakly reactive to light bilaterally Pulm: Diminished but grossly clear. ETT in place. No rales/rhonchi Cardiac: RRR, -mrg. Abdominal: nondistended, soft. BS present. Results & Data Results & Data Vital Signs (Past 12 Hours) Vital Signs Temp Pulse Resp BP Pulse Ox O2 Del Method FiO2 02/04/24 15:00 Mechanical Vent 02/04/24 14:04 37.3 C 02/04/24 13:27 37.3 C 02/04/24 13:15 135/87 02/04/24 13:15 135/87 02/04/24 13:03 67 23 96 02/04/24 13:00 129/84 02/04/24 13:00 129/84 02/04/24 13:00 129/84 02/04/24 12:51 69 16 96 02/04/24 12:45 130/84 02/04/24 12:42 67 12 96 02/04/24 12:33 68 12 98 02/04/24 12:30 112/70 02/04/24 12:30 112/70 02/04/24 12:30 112/70 02/04/24 12:09 72 13 97 02/04/24 12:09 37.3 C 02/04/24 12:00 40 02/04/24 11:57 64 13 98 02/04/24 11:45 110/79 02/04/24 11:42 61 20 97 02/04/24 11:36 64 19 97 02/04/24 11:22 79 20 95 40 02/04/24 11:15 53 L 14 97 02/04/24 11:15 115/74 02/04/24 11:06 37.4 C 02/04/24 11:03 70 20 96 02/04/24 11:00 115/76 02/04/24 10:54 72 17 97 02/04/24 10:51 60 23 97 02/04/24 10:30 69 19 96 02/04/24 10:30 114/72 02/04/24 10:21 69 21 94 02/04/24 10:07 37.5 C 02/04/24 10:03 65 20 95 02/04/24 10:00 112/71 02/04/24 10:00 112/71 02/04/24 09:54 61 20 95 02/04/24 09:48 59 L 21 95 02/04/24 09:45 106/72 02/04/24 09:45 106/72 02/04/24 09:33 72 20 96 02/04/24 09:30 114/79 02/04/24 09:27 66 20 96 02/04/24 09:15 111/77 02/04/24 09:15 111/77 02/04/24 09:09 37.5 C 02/04/24 09:06 61 20 95 02/04/24 09:03 67 12 94 02/04/24 09:00 119/77 02/04/24 08:48 71 14 94 02/04/24 08:45 132/76 02/04/24 08:36 61 20 95 02/04/24 08:15 104/65 02/04/24 08:00 103/69 02/04/24 08:00 40 02/04/24 07:59 37.6 C H 02/04/24 07:54 63 19 95 02/04/24 07:51 69 17 95 02/04/24 07:30 64 11 L 95 02/04/24 07:29 76 20 94 40 02/04/24 07:21 73 17 95 02/04/24 07:15 101/69 02/04/24 07:15 101/69 02/04/24 07:06 37.7 C H 74 15 97 02/04/24 07:00 108/69 02/04/24 07:00 108/69 02/04/24 07:00 37.7 C H 74 23 95 02/04/24 06:48 37.8 C H 74 20 95 02/04/24 06:45 103/73 02/04/24 06:42 37.8 C H 73 21 95 02/04/24 06:33 37.8 C H 68 24 95 02/04/24 06:30 108/68 02/04/24 06:30 108/68 02/04/24 06:09 37.9 C H 73 20 97 02/04/24 06:03 37.9 C H 69 17 96 10/10/24 06:00 106/73 02/04/24 05:45 38.1 C H 72 20 97 02/04/24 05:45 110/75 02/04/24 05:15 38.4 C H 68 11 L 96 02/04/24 05:03 38.5 C H 74 13 94 02/04/24 04:30 38.6 C H 78 17 96 02/04/24 04:18 38.6 C H 75 16 95 02/04/24 04:03 38.6 C H 75 15 94 02/04/24 04:00 40 02/04/24 03:45 38.6 C H 77 15 96 02/04/24 03:45 87/63 L 02/04/24 03:45 87/63 L PG Care Time/CCT Total # of Minutes Spent Total Time Spent with Patient: Total time spent is greater than 50% in coordination of care (as documented) at patient's floor/unit and/or counseling patient: Coding Level of Care Code 39987 SUB INP/OBS CARE Diagnoses AMS (altered mental status) R41.82 ST elevation (STEMI) myocardial infarction I21.11 Involved coronary artery: right coronary artery HFrEF (heart failure with reduced ejection fraction) I50.20 Atrial fibrillation I48.91 Complex sleep apnea syndrome G47.31 Fever R50.9 (2) ST elevation (STEMI) myocardial infarction Involved coronary artery: right coronary artery Qualified Code(s): I21.11 - ST elevation (STEMI) myocardial infarction involving right coronary artery
--- NOTE | 2024-02-04 16:42 | Cardiology Progress Note ---
Date of Service February 04, 2024 Assessment & Plan (1) ST elevation (STEMI) myocardial infarction: Plan: Post PCI with 4 DIANE to RCA Moderate to severe nonculprit disease (45% proximal LAD, 70% small mid to distal LCx) 2. Fac-gm-mrkzrfyx cardiac arrest 3. Ischemic cardiomyopathyEF 35-40% with inferior/inferolateral wall motion abnormality 4. Suspected anoxic brain injury 5. Respiratory failure 6. Shockquestion septicon broad-spectrum antibiotics 7. ANNA MARIE 8. Permanent atrial fibrillation Electrically stable Hemodynamically stable now off norepinephrine Creatinine improved post volume. Remains oliguric Stable oxygenation. No significant congestion on exam No access site complications. No signs of heart failure and no clear cardiogenic shock component at this point. Agree with continued fluids and additional hemodynamic support as needed for MAP >65. On dual therapy with aspirin, ticagrelor. Has been restarted on Eliquis. Renally dose as needed Would continue IV amiodarone today. Can transition to p.o. 200 mg twice daily tomorrow Continue current statin Will follow. Admission and Anticipated Discharge Date Admission Date: February 03, 2024 Subjective Remains intubated, sedated. Febrile overnight and started on broad-spectrum antibiotics Lactate up to 6.7 this morning IV fluid bolus, albumin and ongoing Plasma-Lyte Creatinine up to 2.3 now down to 1.9 Norepinephrine has been weaned off Electrically stable on telemetry Review of Systems Review of Systems: Unobtainable due to endotracheal tube and Unobtainable due to reduced consciousness Physical Exam Physical Exam: General: Intubated sedated, ETT in place HEENT: Sclerae anicteric, weakly reactive to light Lungs: Clear anteriorly Cardiac: Distant heart sounds, irregular irregular, no murmurs Vascular: Right radial artery access site with no ecchymosis, hematoma. 2+ radial pulse Abdomen: Soft Extremities: Distal extremities cool, no edema Results & Data Vital Signs (Past 12 Hours) Vital Signs Temp Pulse Resp BP Pulse Ox O2 Del Method FiO2 02/04/24 15:45 70 20 94 40 02/04/24 15:00 Mechanical Vent 02/04/24 14:04 99.1 F 02/04/24 13:27 99.1 F 02/04/24 13:15 135/87 02/04/24 13:15 135/87 02/04/24 13:03 67 23 96 02/04/24 13:00 129/84 02/04/24 13:00 129/84 02/04/24 13:00 129/84 02/04/24 12:51 69 16 96 02/04/24 12:45 130/84 02/04/24 12:42 67 12 96 02/04/24 12:33 68 12 98 02/04/24 12:30 112/70 02/04/24 12:30 112/70 02/04/24 12:30 112/70 02/04/24 12:09 72 13 97 02/04/24 12:09 99.1 F 02/04/24 12:00 40 02/04/24 11:57 64 13 98 02/04/24 11:45 110/79 02/04/24 11:42 61 20 97 02/04/24 11:36 64 19 97 02/04/24 11:22 79 20 95 40 02/04/24 11:15 53 L 14 97 02/04/24 11:15 115/74 02/04/24 11:06 99.3 F 02/04/24 11:03 70 20 96 02/04/24 11:00 115/76 02/04/24 10:54 72 17 97 02/04/24 10:51 60 23 97 02/04/24 10:30 69 19 96 02/04/24 10:30 114/72 02/04/24 10:21 69 21 94 02/04/24 10:07 99.5 F 02/04/24 10:03 65 20 95 02/04/24 10:00 112/71 02/04/24 10:00 112/71 02/04/24 09:54 61 20 95 02/04/24 09:48 59 L 21 95 02/04/24 09:45 106/72 02/04/24 09:45 106/72 02/04/24 09:33 72 20 96 02/04/24 09:30 114/79 02/04/24 09:27 66 20 96 02/04/24 09:15 111/77 02/04/24 09:15 111/77 02/04/24 09:09 99.5 F 02/04/24 09:06 61 20 95 02/04/24 09:03 67 12 94 02/04/24 09:00 119/77 02/04/24 08:48 71 14 94 02/04/24 08:45 132/76 02/04/24 08:36 61 20 95 02/04/24 08:15 104/65 02/04/24 08:00 103/69 02/04/24 08:00 40 02/04/24 07:59 99.7 F H 02/04/24 07:54 63 19 95 02/04/24 07:51 69 17 95 02/04/24 07:30 64 11 L 95 02/04/24 07:29 76 20 94 40 02/04/24 07:21 73 17 95 02/04/24 07:15 101/69 02/04/24 07:15 101/69 02/04/24 07:06 99.9 F H 74 15 97 02/04/24 07:00 108/69 02/04/24 07:00 108/69 02/04/24 07:00 99.9 F H 74 23 95 02/04/24 06:48 100.0 F H 74 20 95 02/04/24 06:45 103/73 02/04/24 06:42 100.0 F H 73 21 95 02/04/24 06:33 100.0 F H 68 24 95 02/04/24 06:30 108/68 02/04/24 06:30 108/68 02/04/24 06:09 100.2 F H 73 20 97 02/04/24 06:03 100.2 F H 69 17 96 02/04/24 06:00 106/73 02/04/24 05:45 100.6 F H 72 20 97 02/04/24 05:45 110/75 02/04/24 05:15 101.1 F H 68 11 L 96 02/04/24 05:03 101.3 F H 74 13 94 02/04/24 04:30 101.5 F H 78 17 96 PG Care Time/CCT Total # of Minutes Spent Total Time Spent with Patient: Total time spent is greater than 50% in coordination of care (as documented) at patient's floor/unit and/or counseling patient: Coding Level of Care Code 48359 SUB INP/OBS CARE 3/50MIN Diagnoses ST elevation (STEMI) myocardial infarction I21.11 Involved coronary artery: right coronary artery (1) ST elevation (STEMI) myocardial infarction Involved coronary artery: right coronary artery Qualified Code(s): I21.11 - ST elevation (STEMI) myocardial infarction involving right coronary artery
[2024-02-04] MEDS ORDERED: Nursing to Pharmacy Communication SCH (19:30)
[2024-02-04] MEDS: fentaNYL BOLUS from BAG IV PRN (20:56)
[2024-02-05] MEDS: ICU Protocol for HYPERglycemia SCH (00:23)
[2024-02-05] MEDS: ACETAMINOPHEN 1,000 MG/100 ML VIAL IV PRN (01:00)
[2024-02-05 04:40] LABS: Basophils # (auto) 0.02 K/uL (0.00-0.20); Basophils % (auto) 0.1 %; Eosinophils # (auto) 0.05 K/uL (0.00-0.50); Eosinophils % (auto) 0.4 %; Hematocrit (blood only) 33.5 % (42.0-52.0); Hemoglobin 11.3 g/dl (14.0-18.0); Immature Granulocytes # (auto) 0.04 K/uL (0.01-0.20); Immature Granulocytes % (auto) 0.3 %; Lymphocytes # (auto) 0.53 K/uL (1.20-3.40); Lymphocytes % (auto) 3.9 %; Mean Corpuscular Hemoglobin 31.1 pg (25.0-34.0); Mean Corpuscular Hgb Conc 33.7 g/dL (32.0-36.0); Mean Corpuscular Volume 92.3 fL (80.0-100.0); Mean Platelet Volume 12.8 fL (9.4-12.4); Monocytes # (auto) 1.18 K/uL (0.11-0.59); Monocytes % (auto) 8.7 %; Neutrophils # (auto) 11.69 K/uL (1.40-6.50); Neutrophils % (auto) 86.6 %; Platelet Count 98 K/uL (130-400); Platelet Estimate Decreased (Normal); RDW Standard Deviation 50.9 fL (36.4-46.3); Red Blood Count 3.63 M/uL (4.70-6.10); White Blood Count 13.51 K/ul (4.8-10.8)
[2024-02-05 04:41] LABS: BUN Creatinine Ratio 23.5 (10-20); Calcium 7.8 mg/dl (8.6-10.3); Creatinine Clr Calc Pharmacy 51.1 ml/min; Potassium 4.4 mmol/L (3.5-5.1)
[2024-02-05] MEDS: VANCOMYCIN HCL 1,000 MG in SODIUM CHLORIDE 0.9% 250 ML IV SCH (05:31)
--- NOTE | 2024-02-05 07:04 | CT Scan Report ---
CT head/brain wo con CLINICAL HISTORY: 73 years-old Male with eval hypoxic injury. Acute hypoxia TECHNIQUE: Multiple axial CT images of the head were obtained without contrast. A dose lowering tech nique was utilized adhering to the principles of ALARA. CT DOSE: 703.85 mGy.cm COMPARISON: Head CT 02/03/2024 FINDINGS: No acute intracranial hemorrhage, midline shift, intracranial mass, hydrocephalus, or abnormal extra- axial collection. Involutional changes. The mendoza-white interface is more apparent on today's study. N o definite acute territorial infarct identified. The calvarium is intact. Endotracheal tube noted with nasopharyngeal secretions. Trace right mastoid effusion. Moderate mucosal thickening of the paranasal sinuses. Enteric tube also present. Study is m otion degraded. Moderate-sized anterior forehead and facial contusions. IMPRESSION: 1. Motion degraded exam. 2. The mendoza-white interface appears more distinct on today's study. No definite acute territorial inf arct or acute intracranial hemorrhage identified. ACT 112: Negative or not required by law. The above report was generated using voice recognition software. It may contain grammatical, syntax o r spelling errors. Electronically signed by: Shiva Ponce M.D. 02/05/2024 7:03 AM
--- NOTE | 2024-02-05 07:49 | Electroencephalogram ---
EEG Procedure Note Date of Service February 05, 2024 Start / End Times Start Time: 626 End Time: 626 Referring Physician SUSANA Hughes History 73-year-old post cardiac arrest and unresponsive state Home Medication List Medication Instructions Recorded Confirmed Type multivitamin 1 tab PO QAM 07/15/22 02/03/24 History tamsulosin 0.4 mg capsule (Flomax) 0.4 mg PO BID #180 caps 12/04/22 02/03/24 Rx acetaminophen 500 mg tablet 500 mg PO QAM 05/04/23 02/03/24 History apixaban 5 mg tablet (Eliquis) 5 mg PO BID #60 tabs 08/23/23 02/03/24 Rx carvedilol 3.125 mg tablet 3.125 mg PO BID #180 tabs 10/01/23 02/03/24 Rx metformin 500 mg tablet,extended 500 mg PO BID #180 tabs 11/10/23 02/03/24 Rx release 24 hr sacubitril 24 mg-valsartan 26 mg 1 tab PO BID #180 tabs 12/01/23 02/03/24 Rx tablet (Entresto) CPAP Machine #1 ea 12/15/23 12/15/23 Rx Inpatient Medication List Apixaban (Apixaban 5 Mg Tablet) 5 mg PO BID [facility] Stop: 03/05/24 09:59 Last Admin: 02/04/24 20:37 Dose: 5 mg Documented By: Admin: 02/04/24 10:54 Dose: 5 mg Documented By: NYLA Aspirin (Aspirin 81 Mg Chew) [facility] [place] Stop: 03/05/24 09:14 Last Admin: 02/04/24 09:37 Dose: 81 mg Documented By: CB Atorvastatin Calcium (Atorvastatin 40 Mg Tab) [facility] [place] Stop[facility] 03/05/24 08:59 Last Admin: 02/04/24 09:36 Dose: 80 mg Documented By: SANTO Enteral Nutritional Formula (Novasource Renal 2.0 Michael 1000ml Bag) 1,000 ml OG .See Protocol [facility]; Protocol Stop: 03/05/24 10:59 Last Admin: 02/04/24 11:57 Dose: 1,000 ml Documented By: NYLA Fentanyl Citrate (Fentanyl Bolus From Bag) 50 mcg IV Q60M PRN PRN Reason: Pain or Agitation Stop: 02/17/24 15:50 Last Admin: 02/04/24 22:29 Dose: 50 mcg Documented By: LLP Co-signed By: CF Admin: 02/04/24 20:56 Dose: 50 mcg Documented By: LLP Co-signed By: MMG Norepinephrine Bitartrate (Levophed/D5w) 4 mg in 250 mls @ 0 mls/hr IV .Q0M [facility]; Protocol Stop: 03/04/24 13:44 Last Titration: 02/04/24 09:08 Dose: 0 mcg/kg/min, 0 mls/hr Documented By: Titration: 02/04/24 07:17 Dose: 0.02 mcg/kg/min, 8.8 mls/hr Documented By: NMS Co-signed By: JULIETA Titration: 02/04/24 00:10 Dose: 0.02 mcg/kg/min, 8.8 mls/hr Documented By: Admin: 02/03/24 22:12 Dose: 0.04 mcg/kg/min, 17.6 mls/hr Documented By: JULIETA Co-signed By: AMW Titration: 02/03/24 22:12 Dose: Infused Documented By: JULIETA Co-signed By: AMW Titration: 02/03/24 19:14 Dose: 0.04 mcg/kg/min, 17.6 mls/hr Documented By: NMS Co-signed By: JULIETA Admin: 02/03/24 16:44 Dose: 0.04 mcg/kg/min, 17.6 mls/hr Documented By: ES Co-signed By: NMS Amiodarone HCl/Dextrose (Nexterone / D5w) 360 mg in 200 mls @ 16.667 mls/hr IV .Q12H [facility] Stop: 03/04/24 19:29 Last Infusion: 02/05/24 07:15 Dose: 0.5 mg/min, 16.7 mls/hr Documented By: LLP Co-signed By: MTP Admin: 02/05/24 05:30 Dose: 0.5 mg/min, 16.7 mls/hr Documented By: LLP Co-signed By: SG Infusion: 02/05/24 04:44 Dose: Infused Documented By: LLP Co-signed By: SG Infusion: 02/04/24 19:15 Dose: 0.5 mg/min, 16.7 mls/hr Documented By: NMS Co-signed By: LLP Admin: 02/04/24 16:45 Dose: 0.5 mg/min, 16.7 mls/hr Documented By: NMS Co-signed By: CB Infusion: 02/04/24 16:45 Dose: Infused Documented By: NMS Co-signed By: CB Infusion: 02/04/24 07:17 Dose: 0.5 mg/min, 16.7 mls/hr Documented By: NMS Co-signed By: JULIETA Admin: 02/04/24 05:36 Dose: 0.5 mg/min, 16.7 mls/hr Documented By: JULIETA Co-signed By: AMW Infusion: 02/04/24 05:36 Dose: Infused Documented By: JULIETA Co-signed By: AMW Infusion: 02/03/24 19:14 Dose: 0.5 mg/min, 16.7 mls/hr Documented By: NMS Co-signed By: JULIETA Admin: 02/03/24 17:47 Dose: 0.5 mg/min, 16.7 mls/hr Documented By: ES Co-signed By: NYLA Fentanyl Citrate (Fentanyl Citrate) 2,500 mcg in 250 mls @ 0 mls/hr IV .Q0M [facility]; Protocol Stop: 02/17/24 15:59 Last Titration: 02/05/24 07:15 Dose: 0 mcg/hr, 0 mls/hr Documented By: LLP Co-signed By: MTP Titration: 02/05/24 06:11 Dose: 0 mcg/hr, 0 mls/hr Documented By: LLP Co-signed By: SG Titration: 02/04/24 22:28 Dose: 100 mcg/hr, 10 mls/hr Documented By: LLP Co-signed By: CF Titration: 02/04/24 20:56 Dose: 75 mcg/hr, 7.5 mls/hr Documented By: LLP Co-signed By: MMG Titration: 02/04/24 19:15 Dose: 50 mcg/hr, 5 mls/hr Documented By: NMS Co-signed By: LLP Titration: 02/04/24 12:22 Dose: 50 mcg/hr, 5 mls/hr Documented By: CB Co-signed By: JB Titration: 02/04/24 07:17 Dose: 25 mcg/hr, 2.5 mls/hr Documented By: NMS Co-signed By: JULIETA Titration: 02/04/24 00:20 Dose: 25 mcg/hr, 2.5 mls/hr Documented By: JULIETA Co-signed By: CF Titration: 02/03/24 19:14 Dose: 50 mcg/hr, 5 mls/hr Documented By: NMS Co-signed By: JULIETA Titration: 02/03/24 17:48 Dose: 50 mcg/hr, 5 mls/hr Documented By: ES Co-signed By: NMS Admin: 02/03/24 16:44 Dose: 25 mcg/hr, 2.5 mls/hr Documented By: ES Co-signed By: NYLA Propofol (Diprivan) 1,000 mg in 100 mls @ 0 mls/hr IV .Q0M [facility]; Protocol Stop: 02/06/24 15:59 Last Titration: 02/04/24 15:42 Dose: Infused Documented By: Titration: 02/04/24 12:21 Dose: 0 mcg/kg/min, 0 mls/hr Documented By: Admin: 02/04/24 09:08 Dose: Not Given Documented By: Titration: 02/04/24 07:17 Dose: 10 mcg/kg/min, 6.5 mls/hr Documented By: NMS Co-signed By: JULIETA Admin: 02/04/24 03:19 Dose: 10 mcg/kg/min, 6.5 mls/hr Documented By: JULIETA Co-signed By: SG Titration: 02/04/24 03:19 Dose: Infused Documented By: JULIETA Co-signed By: SG Titration: 02/03/24 19:14 Dose: 10 mcg/kg/min, 6.5 mls/hr Documented By: NMS Co-signed By: JULIETA Admin: 02/03/24 16:45 Dose: 10 mcg/kg/min, 6.5 mls/hr Documented By: KIKO Co-signed By: NYLA Acetaminophen (Ofirmev) 1,000 mg in 100 mls @ 400 mls/hr IV Q8H PRN PRN Reason: Pain or Fever Stop: 02/07/24 04:59 Last Infusion: 02/05/24 01:15 Dose: Infused Documented By: Admin: 02/05/24 01:00 Dose: 400 mls/hr Documented By: CLARA Pantoprazole Sodium 40 mg/ (Syringe) 10 mls @ 5 mls/min IV DAILY@1100 [facility] Stop: 03/05/24 10:59 Last Admin: 02/04/24 10:54 Dose: 5 mls/min Documented By: NYLA Vancomycin HCl 1,000 mg/ (Sodium Chloride) 270 mls @ 200 mls/hr IV Q24H [facility] Stop: 02/05/24 23:59 Last Admin: 02/05/24 05:31 Dose: 200 mls/hr Documented By: CLARA Piperacillin Sod/Tazobactam Sod (Zosyn) 4.5 gm in 100 mls @ 25 mls/hr IV Q8H [facility]; Protocol Stop: 02/06/24 19:59 Last Admin: 02/05/24 03:53 Dose: 25 mls/hr Documented By: Infusion: 02/05/24 00:20 Dose: Infused Documented By: Admin: 02/04/24 20:20 Dose: 25 mls/hr Documented By: CLARA Miscellaneous (Icu Protocol For Hyperglycemia) 1 each N/A Q6 [facility] Stop: 02/05/24 16:29 Last Admin: 02/05/24 05:57 Dose: Not Given Documented By: Admin: 02/05/24 00:23 Dose: Not Given Documented By: CLARA Sterile Water (Tube Feeding Water Flush) 225 ml OG Q4 [facility] Stop: 03/05/24 10:59 Last Admin: 02/05/24 03:53 Dose: 225 ml Documented By: Admin: 02/05/24 00:57 Dose: 225 ml Documented By: Admin: 02/04/24 20:23 Dose: 225 ml Documented By: Admin: 02/04/24 16:44 Dose: 225 ml Documented By: Admin: 02/04/24 11:58 Dose: 225 ml Documented By: NYLA Ticagrelor (Ticagrelor 90 Mg Tab) 90 mg PO BID [facility] Stop: 03/05/24 08:59 Last Admin: 02/04/24 20:21 Dose: 90 mg Documented By: Admin: 02/04/24 09:36 Dose: 90 mg Documented By: SANTO Discontinued Medications Acetaminophen (Acetaminophen Susp 1000 Mg/31.2 Ml Udp) 1,000 mg OG NOW STA Stop: 02/03/24 22:42 Last Admin: 02/03/24 23:19 Dose: 1,000 mg Documented By: JULIETA Amiodarone HCl/Dextrose (Amiodarone 360mg / 200ml D5w) Confirm Administered Dose 360 mg IV .STK-MED ONE Stop: 02/03/24 11:05 Last Admin: 02/03/24 11:56 Dose: 360 mg Documented By: DBW Co-signed By: BIANCA Aspirin (Aspirin 81 Mg Ectab) 81 mg PO QAM [facility] Stop: 03/05/24 08:59 Last Admin: 02/04/24 09:36 Dose: Not Given Documented By: CB Fentanyl Citrate (Fentanyl Citrate Pf 100 Mcg/2 Ml Vial) Confirm Administered Dose 100 mcg .ROUTE .STK-MED ONE Stop: 02/03/24 11:12 Last Admin: 02/03/24 13:33 Dose: 100 mcg Documented By: MVC Fentanyl Citrate (Fentanyl Citrate Pf 100 Mcg/2 Ml Vial) Confirm Administered Dose 100 mcg .ROUTE .STK-MED ONE Stop: 02/03/24 11:45 Last Increment: 02/03/24 13:34 Dose: 25 mcg Documented By: MVC Fentanyl Citrate (Fentanyl Citrate 2,500 Mcg/250 Ml Bag) Confirm Administered Dose 2,500 mcg IV .STK-MED ONE Stop: 02/03/24 15:08 Last Admin: 02/03/24 15:47 Dose: Not Given Documented By: ES Heparin Sodium (Porcine) (Heparin Sod (Porcine) 1000 Unit/Ml) Confirm Administered Dose 1,000 units .ROUTE .STK-MED ONE Stop: 02/03/24 10:51 Last Admin: 02/03/24 14:50 Dose: Not Given Documented By: ES Heparin Sodium (Porcine) (Heparin (Porcine) 1000 Unit/Ml 10 Ml (Fringe Weaver Use Only)) Confirm Administered Dose 10,000 units .ROUTE .STK-MED ONE Stop: 02/03/24 11:11 Last Admin: 02/03/24 13:33 Dose: Not Given Documented By: MVC Heparin Sodium (Porcine) (Heparin (Porcine) 1000 Unit/Ml 10 Ml (Fringe Weaver Use Only)) Confirm Administered Dose 10,000 units .ROUTE .STK-MED ONE Stop: 02/03/24 12:53 Last Admin: 02/03/24 13:35 Dose: 9,000 units Documented By: BIANCA Heparin Sodium/Sodium Chloride (Heparin In Nss Infusion 1000 Unit/500 Ml (2 U/Ml ) Bag) Confirm Administered Dose 3,000 units IV .STK-MED ONE Stop: 02/03/24 11:12 Last Admin: 02/03/24 11:55 Dose: 3,000 units Documented By: ANDREW Amiodarone HCl/Dextrose (Nexterone / D5w) 360 mg in 200 mls @ 33.333 mls/hr IV ONE ONE; Protocol Stop: 02/03/24 19:30 Last Infusion: 02/03/24 17:48 Dose: Infused Documented By: KIKO Co-signed By: NYLA Admin: 02/03/24 14:57 Dose: 1 mg/min, 33.3 mls/hr Documented By: NYLA Co-signed By: TAN Lactated Ringer's (Lr) 1,000 mls @ 1,000 mls/hr IV .Q1H [facility] Stop: 02/04/24 03:59 Last Infusion: 02/04/24 04:14 Dose: Infused Documented By: Admin: 02/04/24 03:14 Dose: 1,000 mls/hr Documented By: JULIETA Acetaminophen (Ofirmev) 1,000 mg in 100 mls @ 400 mls/hr IV Q6H [facility] Stop: 02/07/24 04:59 Last Infusion: 02/04/24 05:08 Dose: Infused Documented By: Admin: 02/04/24 04:53 Dose: 400 mls/hr Documented By: JULIETA Piperacillin Sod/Tazobactam Sod (Zosyn) 4.5 gm in 100 mls @ 25 mls/hr IV Q8H [facility]; Protocol Stop: 02/06/24 04:14 Last Admin: 02/04/24 10:46 Dose: Not Given Documented By: CB Vancomycin HCl 2,000 mg/ (Sodium Chloride) 540 mls @ 200 mls/hr IV NOW ONE Stop: 02/04/24 06:56 Last Infusion: 02/04/24 10:00 Dose: Infused Documented By: Admin: 02/04/24 05:55 Dose: 200 mls/hr Documented By: JULIETA Piperacillin Sod/Tazobactam Sod (Zosyn) 4.5 gm in 100 mls @ 200 mls/hr IV NOW STA; Protocol Stop: 02/04/24 04:51 Last Infusion: 02/04/24 05:43 Dose: Infused Documented By: Admin: 02/04/24 05:13 Dose: 200 mls/hr Documented By: JULIETA Parenteral Electrolytes (Plasma-Lyte A Ph 7.4) 1,000 mls @ 125 mls/hr IV .Q8H [facility] Stop: 02/04/24 16:14 Last Infusion: 02/04/24 16:51 Dose: Infused Documented By: Admin: 02/04/24 09:04 Dose: 125 mls/hr Documented By: SANTO Albumin Human (Albumin 5%) 250 mls @ 100 mls/hr IV ONE ONE Stop: 02/04/24 10:42 Last Infusion: 02/04/24 11:26 Dose: Infused Documented By: Admin: 02/04/24 09:04 Dose: 100 mls/hr Documented By: SANTO Piperacillin Sod/Tazobactam Sod (Zosyn) 4.5 gm in 100 mls @ 25 mls/hr IV Q12H [facility]; Protocol Stop: 02/06/24 09:59 Last Infusion: 02/04/24 14:35 Dose: Infused Documented By: Infusion: 02/04/24 14:34 Dose: 0 mls/hr Documented By: Admin: 02/04/24 12:02 Dose: 25 mls/hr Documented By: NYLA Parenteral Electrolytes (Plasma-Lyte A Ph 7.4) 1,000 mls @ 125 mls/hr IV .Q8H [facility] Stop: 02/05/24 01:00 Last Admin: 02/05/24 00:57 Dose: 125 mls/hr Documented By: Infusion: 02/05/24 00:45 Dose: Infused Documented By: Admin: 02/04/24 16:45 Dose: 125 mls/hr Documented By: NYLA Ioversol (Optiray 350) Confirm Administered Dose 1 ml .ROUTE .STK-MED ONE Stop: 02/03/24 11:13 Last Admin: 02/03/24 14:51 Dose: Not Given Documented By: NYLA Midazolam HCl (Midazolam Hcl 1 Mg/Ml 2ml Vial) Confirm Administered Dose 2 mg .ROUTE .STK-MED ONE Stop: 02/03/24 11:10 Last Admin: 02/03/24 13:33 Dose: 2 mg Documented By: BIANCA Midazolam HCl (Midazolam Hcl 1 Mg/Ml 2ml Vial) Confirm Administered Dose 2 mg .ROUTE .STK-MED ONE Stop: 02/03/24 11:11 Last Admin: 02/03/24 11:13 Dose: 2 mg Documented By: VIKI Midazolam HCl (Midazolam Hcl 1 Mg/Ml 2ml Vial) Confirm Administered Dose 2 mg .ROUTE .STK-MED ONE Stop: 02/03/24 11:45 Last Admin: 02/03/24 13:34 Dose: 2 mg Documented By: BIANCA Midazolam HCl (Midazolam Hcl 1 Mg/Ml 2ml Vial) Confirm Administered Dose 2 mg .ROUTE .STK-MED ONE Stop: 02/03/24 12:27 Last Increment: 02/03/24 12:30 Dose: 1 mg Documented By: BIANCA Miscellaneous (Icu Protocol For Hyperglycemia) 1 each N/A ACHS [facility] Stop: 02/05/24 16:29 Last Admin: 02/04/24 18:10 Dose: Not Given Documented By: Admin: 02/04/24 11:50 Dose: Not Given Documented By: Admin: 02/04/24 09:09 Dose: Not Given Documented By: Admin: 02/03/24 22:10 Dose: Not Given Documented By: Admin: 02/03/24 15:47 Dose: Not Given Documented By: ES Nicardipine HCl (Nicardipine Hcl Inj 2.5 Mg/Ml 10 Ml Amp) Confirm Administered Dose 25 mg .ROUTE .STK-MED ONE Stop: 02/03/24 11:12 Last Admin: 02/03/24 11:55 Dose: 25 mg Documented By: ANDREW Nitroglycerin/Dextrose (Nitroglycerin/D5w 100mcg/Ml 20ml Syr) Confirm Administered Dose 2,000 mcg .ROUTE .STK-MED ONE Stop: 02/03/24 11:13 Last Admin: 02/03/24 11:55 Dose: 2,000 mcg Documented By: ANDREW Norepinephrine Bitartrate (Norepinephrine/D5w 4 Mg/250 Ml) Confirm Administered Dose 4 mg IV .STK-MED ONE Stop: 02/03/24 11:24 Last Admin: 02/03/24 14:52 Dose: Not Given Documented By: NYLA Propofol (Propofol Iv Emulsion 10 Mg/Ml 100 Ml Vial) Confirm Administered Dose 1,000 mg IV .STK-MED ONE Stop: 02/03/24 15:08 Last Admin: 02/03/24 15:47 Dose: Not Given Documented By: ES Sodium Zirconium Cyclosilicate (Sodium Zirconium Cyclosilicate 10 Gm Packet) 10 gm PO ONE ONE Stop: 02/04/24 09:03 Last Admin: 02/04/24 09:37 Dose: 10 gm Documented By: CB Ticagrelor (Ticagrelor 90 Mg Tab) Confirm Administered Dose 180 mg .ROUTE .STK- MED ONE Stop: 02/03/24 10:50 Last Admin: 02/03/24 13:32 Dose: 180 mg Documented By: TLF Ticagrelor (Ticagrelor 90 Mg Tab) Confirm Administered Dose 180 mg .ROUTE .STK- MED ONE Stop: 02/03/24 12:52 Last Admin: 02/03/24 14:52 Dose: Not Given Documented By: NMS Description This is a 21 electrode EEG with a single channel dedicated to limited EKG. The electrodes were placed in accordance with the International 10-20 system. Interpretation The predominant background activity consists of a somewhat irregular 5-6 Hz activity, of up to 40 mV in amplitude,seen symmetrically distributed over the posterior head regions bilaterally, spreading anteriorly symmetrically.. This activity attenuates some with eye-opening and other alerting procedures. Photic stimulation was performed and elicited no change in the background activity and no abnormal responses were seen. Hyperventilation was not performed. A mild amount of muscle tension and minimal other movement artifact activity contaminated the recording, yet did not hinder interpretation to any significant degree. Throughout the waking portion of the recording, no focal abnormalities or potentially epileptogenic discharges were seen. The mild generalized slow activity was persistent throughout the recording. At 1 point the land mobile radio technician noted that the patient was "shaking" (no further details regarding this episode) and there was no electrocerebral accompanied. The patient entered the drowsy state for brief periods of time and late towards the latter third of the recording with no further abnormality. In summary, this EEG was remarkable for a mild generalized cerebral dysrhythmia of a nonspecific nature seen during wakefulness with no further activation or abnormalities seen with drowsiness. No focal abnormalities or potentially epileptogenic discharges were noted. This was true even with 1 episode of shaking noted by the land mobile radio technician. Clinical Correlation The abscence of potentially epileptogenic activity does not exclude a seizure disorder, since interictally, EEGs can be normal. The mild generalized slowing is nonspecific and likely indicative of a mild encephalopathy (which could be due to a wide variety of causes including hypoxic). Clinical correlation is required. [facility] EEG Procedure Codes Indication for Procedure (1) Hypoxic encephalopathy: Neurology Neurology: 76697 EEG include record awake & drowsy
--- NOTE | 2024-02-05 08:07 | Critical Care Progress Note ---
Date of Service February 05, 2024 Assessment & Plan (1) HFrEF (heart failure with reduced ejection fraction): (2) ST elevation (STEMI) myocardial infarction: (3) Contusion of forehead: (4) Cardiac arrest: (5) Complex sleep apnea syndrome: (6) Atrial fibrillation, persistent: (7) Shock circulatory: (8) Transaminitis: Plan Reason Critically Ill: 73-year-old male past medical history of complex sleep apnea, A-fib, systolic CHF presented to the hospital with cardiac arrest. Went to the [facility] and 4 stents were placed in RCA Neuro - [facility]: Unable to assess Sedation: Propofol and fentanyl CT head 02/03/2024 shows blurring of the mendoza-white matter, inclining more towards hypoxic brain injury Repeat CT head 02/05/2024 showed mendoza-white interface more distinct compared to before. No territory infarct or intracranial hemorrhage EEG 02/05/2024: Mild generalized slowing which is nonspecific. --Frontal hematoma Secondary to fall from cardiac arrest No bleed on the CT head Cardiac - -- Cardiac arrest with cardiogenic shock S/p 4 stents placed in distal RCA on 02/03/2024 Continue with dual antiplatelet therapy On amiodarone drip, will be transition to p.o. amiodarone on 02/05/2024 Vasopressor support to keep MAP greater than 65 2D echo 02/03/2024: EF 35-40% Respiratory - -- Ventilator dependent respiratory failure For airway protection postcardiac arrest Keep RASS -1 Daily sedation holidays and SBT's Chlorhexidine mouthwash GI - -- Transaminitis Likely from shock Continue to trend RENAL/LYTES - -- ANNA MARIE on CKD Secondary to cardiac arrest and hypotension Monitor BUN/creatinine Avoid nephrotoxic medications Strict ins and outs ENDO - ICU hypoglycemia protocol HEME - --New onset fever Likely central Blood culture negative to date Sputum culture is growing staph species, follow-up sensitivity Procalcitonin is 2.02 -- Leukocytosis Likely reactive to cardiac arrest Continue to monitor --History of chronic thrombocytopenia Continue to monitor ID - -- No clear source of infection --Prophylaxis VTE: Eliquis GI: Pantoprazole Lines: Peripheral Diet: Tube feeds Plan: In/out: +3.7 L, urine output 905 Decrease IV fluid rate to 75 mL an hour Discontinue vancomycin Amiodarone drip to be transitioned to p.o. amiodarone 200 mg on a daily basis While I was in the room patient did get hypoxic, he was very restless at that time. We had to briefly go up on the PEEP to 10 and FiO2 100% but he gradually improved If he had another bouts of hypoxia then CT of the chest will be ordered Patient's and family who are at bedside were updated regarding his condition I have personally spent 36 minutes of critical care time in the direct management of this patient. This is a life/limb threatening event. This includes time spent evaluating patient, direct bedside care, chart review, placing orders, interpretation of diagnostic studies, discussion with consultants, patient, and family members, as well as other required patient management activities. This time is exclusive of all separately billable procedures, and teaching time and separate from and in addition to any other critical care service time. Admission and Anticipated Discharge Date Admission Date: February 03, 2024 Subjective Patient seen and examined at bedside. No acute distress, no adverse events overnight Patient is more alert, spontaneously opening his eyes Trying to move his upper extremities spontaneously Unfortunately still not tracking Off vasopressors He was given off fentanyl but he started to get agitated and fentanyl was resumed Review of Systems 2 Review of Systems: Unobtainable due to endotracheal tube Physical Exam 2 Physical Exam: Constitutional: No acute distress HEENT: Sluggish pupillary response bilaterally, infraorbital as well as supraorbital ecchymosis Respiratory system: Good air entry bilaterally, no wheeze, no rhonchi, mild crackles bilaterally CVS: S1-S2 positive, no murmurs or gallops Abdomen: Soft, nontender, nondistended, positive bowel sounds x4 Extremities: +2 pulses bilaterally radialis/ dorsalis pedis, no cyanosis, no edema Neuro: Breathing over the vent, opening eyes spontaneously, moving bilateral upper extremities spontaneously Psych: Unable to assess G/U: Positive Nunez Skin: no rashes, warm and dry Lymphatic: no cervical or axillary lymphadenopathy Results & Data Results & Data Vital Signs (Past 12 Hours) Vital Signs Temp Pulse Resp BP Pulse Ox O2 Del Method FiO2 02/05/24 07:22 80 20 100 40 02/05/24 06:00 110/67 02/05/24 05:45 80 20 100 02/05/24 05:30 123/76 02/05/24 05:30 123/76 02/05/24 05:30 37.4 C 123/76 02/05/24 05:30 71 23 97 02/05/24 05:18 77 23 93 02/05/24 05:17 125/75 02/05/24 05:17 125/75 02/05/24 05:17 125/75 02/05/24 04:48 80 20 98 02/05/24 04:45 118/73 02/05/24 04:45 118/73 02/05/24 04:33 82 20 96 02/05/24 04:30 106/68 02/05/24 04:27 76 20 98 02/05/24 04:15 79 20 98 02/05/24 04:15 121/84 02/05/24 04:15 121/84 02/05/24 04:09 79 20 97 02/05/24 04:00 116/73 02/05/24 04:00 116/73 02/05/24 04:00 40 02/05/24 03:45 111/72 02/05/24 03:45 111/72 02/05/24 03:42 79 20 97 02/05/24 03:33 80 20 96 02/05/24 03:30 37.4 C 119/70 02/05/24 03:15 37.4 C 117/76 02/05/24 03:15 117/76 02/05/24 03:09 79 20 96 02/05/24 03:00 111/78 02/05/24 03:00 78 20 94 02/05/24 02:45 108/72 02/05/24 02:45 108/72 02/05/24 02:42 79 20 100 02/05/24 02:35 77 20 93 40 02/05/24 02:30 125/75 02/05/24 02:30 125/75 02/05/24 02:27 85 14 90 02/05/24 02:17 137/81 02/05/24 02:00 128/84 02/05/24 02:00 128/84 02/05/24 01:57 79 20 97 02/05/24 01:45 120/79 02/05/24 01:45 120/79 02/05/24 01:45 120/79 02/05/24 01:41 78 20 97 02/05/24 01:33 79 23 96 02/05/24 01:30 37.6 C H 127/74 02/05/24 01:30 127/74 02/05/24 01:18 84 20 95 02/05/24 01:15 128/74 02/05/24 01:15 128/74 02/05/24 01:15 128/74 02/05/24 01:15 87 20 95 02/05/24 01:06 82 20 96 02/05/24 00:45 127/75 02/05/24 00:39 37.6 C H 79 20 94 02/05/24 00:17 80 20 94 02/05/24 00:15 131/79 02/05/24 00:14 80 20 95 02/05/24 00:05 37.5 C 86 20 93 02/05/24 00:00 40 02/05/24 00:00 135/75 02/05/24 00:00 74 02/04/24 23:59 77 20 92 02/04/24 23:38 78 20 91 02/04/24 23:30 154/91 H 02/04/24 23:30 154/91 H 02/04/24 23:23 77 20 93 02/04/24 23:15 129/79 02/04/24 23:14 37.6 C H 78 20 90 02/04/24 23:05 85 20 91 02/04/24 23:00 130/76 02/04/24 23:00 130/76 02/04/24 23:00 130/76 02/04/24 22:53 83 20 91 02/04/24 22:45 127/80 02/04/24 22:38 78 20 91 02/04/24 22:30 156/72 H 02/04/24 22:30 156/72 H 02/04/24 22:15 164/99 H 02/04/24 22:10 77 20 91 40 02/04/24 22:09 67 18 91 02/04/24 22:08 65 20 92 02/04/24 22:00 166/89 H 02/04/24 22:00 166/89 H 02/04/24 21:54 87 15 92 02/04/24 21:45 138/78 02/04/24 21:35 86 20 93 Mechanical Vent 40 02/04/24 21:30 37.5 C 142/79 H 02/04/24 21:30 67 20 93 02/04/24 21:21 77 18 95 02/04/24 21:00 146/81 H 02/04/24 21:00 146/81 H 02/04/24 21:00 146/81 H 02/04/24 20:45 143/81 H 02/04/24 20:45 143/81 H 02/04/24 20:36 67 19 94 02/04/24 20:15 37.5 C 66 13 95 02/04/24 20:15 139/80 02/04/24 20:15 139/80 Laboratory Results 02/05/24 04:02 02/05/24 04:02 Coding Level of Care Code 22312 CRITICAL CARE 1ST 30-74M Diagnoses HFrEF (heart failure with reduced ejection fraction) I50.20 ST elevation (STEMI) myocardial infarction I21.11 Involved coronary artery: right coronary artery Contusion of forehead S00.83XA Encounter type: initial encounter Cardiac arrest I46.9 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
[2024-02-05] MEDS ORDERED: SODIUM ZIRCONIUM CYCLOSILICATE 10 GM PACKET PO SCH (09:00)
--- NOTE | 2024-02-05 10:17 | XRay Report ---
XR chest 1V portable CLINICAL HISTORY: Change in condition COMPARISON STUDY: Chest radiograph February 03, 2024. FINDINGS: The tip of the endotracheal tube is 6.5 cm above the rodo. Tip of nasogastric tube is dif ficult to visualize but is least within the esophagus. Cardiomegaly is again noted. Upper mediastinal prominence is noted. The aortic arch is obscured. There is maybe technical. Small bilateral pleural effusions with bibasilar opacities have increased. There is no evidence for overt pulmonary edema. Th ere is no pneumothorax. IMPRESSION: 1. Tip of endotracheal tube 6.5 cm above the rodo. 2. Upper mediastinal prominence with obscuration of the aortic arch. The findings are likely technica l. Pleural/mediastinal fluid or left upper lobe collapse would be difficult to completely exclude. Th is can be assessed with short-term follow-up chest radiograph or a chest CT. 3. Increase in small bilateral pleural effusions with bibasilar opacities. No pneumothorax. ACT 112: Negative or not required by law. Electronically signed by: Rancho Carr M.D. 02/05/2024 10:15 AM
--- NOTE | 2024-02-05 14:37 | Hospitalist Progress Note ---
Date of Service February 05, 2024 Assessment & Plan (1) AMS (altered mental status): Plan: Likely due to hypoxic injury following cardiac arrest. Prognosis guarded ETT in place Propofol and fentanyl discontinued, patient does not follow commands or track with eyes fentanyl subsequently resumed for agitation. CThead with loss of mendoza matter demarcation suggesting hypoxic injury 1. EEG nonspecific (2) ST elevation (STEMI) myocardial infarction: Plan: Inferior STEMI, Heart failure with history of nonischemic cardiomyopathy Hif-tq-fvypeqqc collapse, with a CPR and subsequent ROSC. Received 3 doses of epinephrine and 1 dose of atropine prehospital. Prehospital EKG with inferior ST elevations Taken to the Gang Ripsaw Operator emergently. Subsequently was found to have distal RCA acute occlusion s/p 4 DIANE. Subsequently moved to the ICU for recovery Echo with EF 35-40% severe inferior/inferolateral/basal inferoseptal hypokinesis. Normal PA pressure. BBlocker and Entresto held for cardiogenic shock requiring pressors, resume once pressures permit.. Currently this is precluded as patient is on norepinephrine Continue DAPT aspirin/Brilinta via OG (3) HFrEF (heart failure with reduced ejection fraction): (4) Atrial fibrillation: Plan: A-fib on Eliquis EKG on admission A-fib. Continued on amiodarone on admission. 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 This is being transition to SQ heparin Beta-amina held on admission for cardiogenic shock on pressors Patient has had multiple severe GI bleeds and anemia. Did have ERNESTO clipping in 2019, is continued on apixaban. (5) Complex sleep apnea syndrome: Plan: Intubated, ventilated (6) Fever: Plan: Fever peak at 38.610 9 into 02/03. No recurrent fever 02/04. Zosyn continued, vancomycin discontinued No reported infectious symptoms prior to arrest, chest x-ray without obvious pneumonia, UA concentrated but without bacteria/nitrites and only trace leukocyte esterase. Blood cultures pending no growth to date vent sputum culture positive for GPC/staph species pending further speciation and sensitivity (7) ANNA MARIE (acute kidney injury): Plan: ANNA MARIE Postcardiac arrest Downtrending creatinine, 1.7 on 02/04. Baseline less than 1.4. Received Lokelma for hyperkalemia, recheck normal Plan CODE STATUS: Full code Disposition: ICU Diet: N.p.o., ETT in place Admission and Anticipated Discharge Date Admission Date: February 03, 2024 Subjective Seen at the bedside. Discussed with nursing staff. Overnight patient required increasing PEEP to 10/FiO2 100%. Opened eyes spontaneously to noxious stimuli and loud noise but did not track with his eyes or follow command. EEG nonspecific. Propofol and fentanyl were discontinued overnight, some agitation although not directable and fentanyl was subsequently resumed for distress. Physical Exam Physical Exam: General: Intubated, sedated. Opens eyes to noxious stimuli does not follow commands or HEENT: Pupils equal round reactive to Pulm: Diminished but grossly clear. ETT in place. No rales/rhonchi Cardiac: RRR, -mrg. Abdominal: nondistended, soft. BS present. Results & Data Results & Data Vital Signs (Past 12 Hours) Vital Signs Temp Pulse Resp BP Pulse Ox FiO2 02/05/24 10:15 92 H 20 95 50 02/05/24 07:22 80 20 100 40 02/05/24 06:00 110/67 02/05/24 05:45 80 20 100 02/05/24 05:30 123/76 02/05/24 05:30 123/76 02/05/24 05:30 37.4 C 123/76 02/05/24 05:30 71 23 97 02/05/24 05:18 77 23 93 02/05/24 05:17 125/75 02/05/24 05:17 125/75 02/05/24 05:17 125/75 02/05/24 04:48 80 20 98 02/05/24 04:45 118/73 02/05/24 04:45 118/73 02/05/24 04:33 82 20 96 02/05/24 04:30 106/68 02/05/24 04:27 76 20 98 02/05/24 04:15 79 20 98 02/05/24 04:15 121/84 02/05/24 04:15 121/84 02/05/24 04:09 79 20 97 02/05/24 04:00 116/73 02/05/24 04:00 116/73 02/05/24 04:00 40 02/05/24 03:45 111/72 02/05/24 03:45 111/72 02/05/24 03:42 79 20 97 02/05/24 03:33 80 20 96 02/05/24 03:30 37.4 C 119/70 02/05/24 03:15 37.4 C 117/76 02/05/24 03:15 117/76 02/05/24 03:09 79 20 96 02/05/24 03:00 111/78 02/05/24 03:00 78 20 94 02/05/24 02:45 108/72 02/05/24 02:45 108/72 02/05/24 02:42 79 20 100 02/05/24 02:35 77 20 93 40 PG Care Time/CCT Total # of Minutes Spent Total Time Spent with Patient: Total time spent is greater than 50% in coordination of care (as documented) at patient's floor/unit and/or counseling patient: Coding Level of Care Code 29532 SUB INP/OBS CARE 05/21MIN Diagnoses AMS (altered mental status) R41.82 ST elevation (STEMI) myocardial infarction I21.11 Involved coronary artery: right coronary artery HFrEF (heart failure with reduced ejection fraction) I50.20 Atrial fibrillation I48.91 Complex sleep apnea syndrome G47.31 Fever R50.9 ANNA MARIE (acute kidney injury) N17.9 (2) ST elevation (STEMI) myocardial infarction Involved coronary artery: right coronary artery Qualified Code(s): I21.11 - ST elevation (STEMI) myocardial infarction involving right coronary artery
[2024-02-05] MEDS: AMIODARONE 200 MG TAB PO SCH (16:31)
--- NOTE | 2024-02-05 16:46 | Cardiology Progress Note ---
Date of Service February 05, 2024 Assessment & Plan (1) ST elevation (STEMI) myocardial infarction: Plan: Post PCI with 4 DIANE to RCA Moderate to severe nonculprit disease (45% proximal LAD, 70% small mid to distal LCx)mid management 2. Dox-bi-xnvbrfoj cardiac arrest 3. Ischemic cardiomyopathyEF 35-40% with inferior/inferolateral wall motion abnormality 4. Suspected anoxic brain injury 5. Respiratory failure 6. Shockquestion septicon broad-spectrum antibiotics 7. ANNA MARIE 8. Permanent atrial fibrillation Electrically stable Hemodynamically stable off pressors Creatinine improving, improved urine output Oxygenation stable this afternoon. Minimal congestion on exam/chest x-ray. No access site complications. Continue supportive care from a cardiac standpoint. Maintenance IV fluids discontinued On dual therapy with aspirin, ticagrelor. Has been restarted on Eliquis. Renally dose as needed Transition to p.o. amiodarone today Continue current statin Admission and Anticipated Discharge Date Admission Date: February 03, 2024 Subjective Remains intubated, sedated this afternoon. Earlier today per nursing open denies, did not clearly follow commands. Head CT stable. ECG nonspecific. Improved urine output today. Remains off norepinephrine No additional fevers Review of Systems Review of Systems: Unobtainable due to cognitive status Physical Exam Physical Exam: General: Intubated sedated, ETT in place HEENT: Sclerae anicteric, weakly reactive to light Lungs: Clear anteriorly Cardiac: Distant heart sounds, irregular irregular, no murmurs Vascular: Right radial artery access site with no ecchymosis, hematoma. 2+ radial pulse Abdomen: Soft Extremities: Distal extremities cool, no edema Results & Data Vital Signs (Past 12 Hours) Vital Signs Temp Pulse Resp BP Pulse Ox FiO2 02/05/24 10:15 92 H 20 95 50 02/05/24 07:22 80 20 100 40 02/05/24 06:00 110/67 02/05/24 05:45 80 20 100 02/05/24 05:30 123/76 02/05/24 05:30 [id number] 02/05/24 05:30 99.3 F 123/76 02/05/24 05:30 71 23 97 02/05/24 05:18 77 23 93 02/05/24 05:17 125/75 02/05/24 05:17 125/75 10/11/24 05:17 125/75 02/05/24 04:48 80 20 98 02/05/24 04:45 [id number] 02/05/24 04:45 118 PG Care Time/CCT Total # of Minutes Spent Total Time Spent with Patient: Total time spent is greater than 50% in coordination of care (as documented) at patient's floor/unit and/or counseling patient: Coding Level of Care Code 96840 SUB INP/OBS CARE 2/35MIN Diagnoses ST elevation (STEMI) myocardial infarction I21.11 Involved coronary artery: right coronary artery (1) ST elevation (STEMI) myocardial infarction Involved coronary artery: right coronary artery Qualified Code(s): I21.11 - ST elevation (STEMI) myocardial infarction involving right coronary artery
[2024-02-06] MEDS: ICU Protocol for HYPERglycemia SCH (00:02)
[2024-02-06 04:13] LABS: Basophils # (auto) 0.02 K/uL (0.00-0.20); Basophils % (auto) 0.2 %; Eosinophils # (auto) 0.04 K/uL (0.00-0.50); Eosinophils % (auto) 0.3 %; Hematocrit (blood only) 29.7 % (42.0-52.0); Immature Granulocytes # (auto) 0.05 K/uL (0.01-0.20); Immature Granulocytes % (auto) 0.4 %; Lymphocytes # (auto) 0.61 K/uL (1.20-3.40); Lymphocytes % (auto) 5.3 %; Mean Corpuscular Hemoglobin 31.1 pg (25.0-34.0); Mean Corpuscular Hgb Conc 33.7 g/dL (32.0-36.0); Mean Corpuscular Volume 92.2 fL (80.0-100.0); Monocytes # (auto) 1.21 K/uL (0.11-0.59); Monocytes % (auto) 10.5 %; Neutrophils # (auto) 9.64 K/uL (1.40-6.50); Neutrophils % (auto) 83.3 %; Platelet Count 85 K/uL (130-400); RDW Coefficient of Variation 14.9 % (11.5-14.5); RDW Standard Deviation 50.6 fL (36.4-46.3); Red Blood Count 3.22 M/uL (4.70-6.10); White Blood Count 11.57 K/ul (4.8-10.8)
[2024-02-06 04:30] LABS: Calcium 7.6 mg/dl (8.6-10.3); Creatinine Clr Calc Pharmacy 59.8 ml/min; Phosphorus 2.6 mg/dl (2.5-4.9)
--- NOTE | 2024-02-06 08:14 | Critical Care Progress Note ---
Date of Service February 06, 2024 Assessment & Plan (1) HFrEF (heart failure with reduced ejection fraction): (2) ST elevation (STEMI) myocardial infarction: (3) Contusion of forehead: (4) Cardiac arrest: (5) Complex sleep apnea syndrome: (6) Atrial fibrillation, persistent: (7) Shock circulatory: (8) Transaminitis: Plan Reason Critically Ill: 73-year-old male past medical history of complex sleep apnea, A-fib, systolic CHF presented to the hospital with cardiac arrest. Went to the Therapy Coordinator and 4 stents were placed in RCA Neuro - [facility] ICU: Unable to assess Sedation: Fentanyl CT head 02/03/2024 shows blurring of the mendoza-white matter, inclining more towards hypoxic brain injury Repeat CT head 02/05/2024 showed mendoza-white interface more distinct compared to before. No territory infarct or intracranial hemorrhage EEG 02/05/2024: Mild generalized slowing which is nonspecific. --Frontal hematoma Secondary to fall from cardiac arrest No bleed on the CT head Cardiac - -- Cardiac arrest, s/p cardiogenic shock S/p 4 stents placed in distal RCA on 02/03/2024 Continue with dual antiplatelet therapy Amiodarone drip transitioned to p.o. amiodarone on 02/05/2024 2D echo 02/03/2024: EF 35-40% Respiratory - -- Ventilator dependent respiratory failure For airway protection postcardiac arrest Keep RASS -1 Daily sedation holidays and SBT's GI - -- Transaminitis Likely from shock Continue to trend RENAL/LYTES - -- ANNA MARIE on CKD Secondary to cardiac arrest and hypotension Monitor BUN/creatinine Avoid nephrotoxic medications Strict ins and outs ENDO - ICU hypoglycemia protocol HEME - --History of chronic thrombocytopenia Continue to monitor ID - -- MSSA in the sputum --New onset fever Likely central Blood culture negative to date Sputum culture is growing MSSA --> Zosyn changed to Rocephin, will complete the course for total of 7 days Procalcitonin is 2.02 -- Leukocytosis Likely reactive to cardiac arrest Continue to monitor --Prophylaxis VTE: Eliquis on hold GI: Pantoprazole Lines: Peripheral Diet: Tube feeds Plan: In/out: +1.2 L, urine output 1005 mL, +6 L since coming to the hospital Decrease IV fluid rate to 50 mL an hour of Plasma-Lyte Continue with p.o. amiodarone Change Zosyn to Rocephin Will keep the patient on pressure support. Will try to see if you are able to transition from fentanyl to Precedex. If the patient is able to do well on pressure support then trial of extubation probably tomorrow Will get urology involved for hematuria. Hold Eliquis Continue with aspirin and Brilinta Patient's and family who are at bedside were updated regarding his condition I have personally spent 38 minutes of critical care time in the direct management of this patient. This is a life/limb threatening event. This includes time spent evaluating patient, direct bedside care, chart review, placing orders, interpretation of diagnostic studies, discussion with consultants, patient, and family members, as well as other required patient management activities. This time is exclusive of all separately billable procedures, and teaching time and separate from and in addition to any other critical care service time. Admission and Anticipated Discharge Date Admission Date: February 03, 2024 Subjective Patient seen and examined at bedside. No acute distress, no adverse events overnight Patient was on 150 of fentanyl at the time of examination He is alert, not following any commands. He was breathing with the vent. Still spiking fever Tmax 37.5-37.8 Overnight they had to change the Nunez catheter as it was clogged Review of Systems 2 Review of Systems: All systems reviewed & are unremarkable except as noted in Subjective Physical Exam 2 Physical Exam: Constitutional: No acute distress HEENT: Sluggish pupillary response bilaterally, infraorbital as well as supraorbital ecchymosis Respiratory system: Good air entry bilaterally, no wheeze, no rhonchi, mild crackles bilaterally CVS: S1-S2 positive, no murmurs or gallops Abdomen: Soft, nontender, nondistended, positive bowel sounds x4 Extremities: +2 pulses bilaterally radialis/ dorsalis pedis, no cyanosis, no edema Neuro: Breathing over the vent, opening eyes spontaneously, moving bilateral upper extremities spontaneously Psych: Unable to assess G/U: Positive Nunez Skin: no rashes, warm and dry Lymphatic: no cervical or axillary lymphadenopathy Results & Data Results & Data Vital Signs (Past 12 Hours) Vital Signs Temp Pulse Resp BP Pulse Ox FiO2 02/06/24 07:26 84 02/06/24 07:09 78 20 96 40 02/06/24 05:09 37.8 C H 78 20 98 02/06/24 05:00 117/67 02/06/24 05:00 117/67 02/06/24 05:00 117/67 02/06/24 04:57 37.8 C H 83 20 98 02/06/24 04:48 37.8 C H 69 20 98 02/06/24 04:30 105/59 L 02/06/24 04:00 113/61 02/06/24 04:00 40 02/06/24 03:54 37.8 C H 81 20 96 02/06/24 03:45 84 20 97 40 02/06/24 03:30 113/62 02/06/24 03:27 37.8 C H 81 20 96 02/06/24 03:00 130/80 02/06/24 03:00 37.8 C H 85 20 96 02/06/24 02:30 114/61 02/06/24 02:21 37.8 C H 78 20 97 02/06/24 02:12 37.8 C H 69 20 96 02/06/24 01:42 37.8 C H 81 20 97 02/06/24 01:30 117/69 02/06/24 01:30 117/69 02/06/24 01:21 37.8 C H 88 20 97 02/06/24 01:09 37.8 C H 85 20 98 02/06/24 00:42 37.8 C H 77 20 97 02/06/24 00:30 121/70 02/06/24 00:27 37.8 C H 79 20 97 02/06/24 00:06 37.8 C H 77 20 96 02/06/24 00:00 81 02/06/24 00:00 134/67 02/06/24 00:00 134/67 02/05/24 23:54 37.8 C H 84 20 97 02/05/24 23:46 40 02/05/24 23:41 80 20 96 50 02/05/24 23:30 105/62 02/05/24 23:30 105/62 02/05/24 23:09 37.8 C H 78 20 98 02/05/24 23:00 37.7 C H 76 20 97 02/05/24 22:30 37.3 C 76 20 97 02/05/24 22:30 118/62 02/05/24 22:30 118/62 02/05/24 22:03 36.9 C 88 20 95 02/05/24 22:00 144/83 H 02/05/24 22:00 144/83 H 02/05/24 22:00 144/83 H 02/05/24 21:45 36.8 C 90 20 95 02/05/24 21:30 120/74 02/05/24 21:12 36.5 C 88 20 95 02/05/24 21:09 121/71 02/05/24 21:09 121/71 02/05/24 21:09 121/71 02/05/24 21:03 36.5 C 92 H 20 95 02/05/24 20:27 89 24 96 40 Laboratory Results 02/06/24 03:55 02/06/24 03:55 Coding Level of Care Code 52482 CRITICAL CARE 1ST 30-74M Diagnoses HFrEF (heart failure with reduced ejection fraction) I50.20 ST elevation (STEMI) myocardial infarction I21.11 Involved coronary artery: right coronary artery Contusion of forehead S00.83XA Encounter type: initial encounter Cardiac arrest I46.9 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
[2024-02-06] MEDS ORDERED: STAT IV Infusion **Titration per Protocol STA (08:38)
[2024-02-06] MEDS: dexMEDEtomidine 200 MCG/50 ML BAG IV SCH (09:11)
[2024-02-06] MEDS: ACETAMINOPHEN 1,000 MG/100 ML VIAL IV STA (09:18)
[2024-02-06] MEDS: PLASMA-LYTE A 1,000 ML IV SCH (09:28)
--- NOTE | 2024-02-06 10:58 | Urology Consultation ---
Date of Consultation February 06, 2024 Assessment & Plan (1) Gross hematuria: Plan Acutely ill patient with gross hematuria after resuming Eliquis in addition to dual platelet therapy Anticoagulation secondary to recent cardiac intervention and stents as well as chronic atrial fibrillation Unfortunately, this represents a classic balancing point between the pros and cons of antiplatelet/anticoagulation and the risk of bleeding from other areas There is no indication for any surgical intervention nor would it be appropriate to consider any surgical intervention for his hematuria at this stage We have to simply balance his tolerance of full anticoagulation with the risks Overall, I have limited suspicion that his change in hemoglobin is secondary to the hematuria If Eliquis is felt to be an absolute necessity secondary to his A-fib, then I would continue the Eliquis and accept the mild hematuria for the time being Presence of a Nunez catheter and enlarged prostate alone can explain bleeding in this setting History of Present Illness Attending Physician: Hernandez Zuleta MD History of Present Illness Extremely ill 73-year-old male currently intubated and requiring consistent critical care in the ICU Consulted because of hematuria Hematuria developed after max anticoagulationdual antiplatelet and Eliquis Recent cardiac intervention secondary to out of hospital [place] Also with atrial fibrillation chronically Nunez catheter in place Eliquis was held this morning, hematuria began after resuming Eliquis yesterday Hemoglobin 10 this morning has been trending down for several days, preceding hematuria Creatinine 1.48, has been trending down for several days Allergies Allergy/AdvReac Type Severity Reaction Status Date / Time No Known Allergies Allergy Verified 12/15/23 10:53 Home Medications Medication Instructions Recorded Confirmed Type multivitamin 1 tab PO QAM 07/15/22 02/03/24 History tamsulosin 0.4 mg capsule (Flomax) 0.4 mg PO BID #180 caps 12/04/22 02/03/24 Rx acetaminophen 500 mg tablet 500 mg PO QAM 05/04/23 02/03/24 History apixaban 5 mg tablet (Eliquis) 5 mg PO BID #60 tabs 08/23/23 02/03/24 Rx carvedilol 3.125 mg tablet 3.125 mg PO BID #180 tabs 10/01/23 02/03/24 Rx metformin 500 mg tablet,extended 500 mg PO BID #180 tabs 11/10/23 02/03/24 Rx release 24 hr sacubitril 24 mg-valsartan 26 mg 1 tab PO BID #180 tabs 12/01/23 02/03/24 Rx tablet (Entresto) CPAP Machine #1 ea 12/15/23 12/15/23 Rx Patient History Medical History Hx of melanoma of skin nose, s/p excision Atrial fibrillation Follows with [facility] > no pacer Obesity Surgical History S/P peripheral artery angioplasty with stent placement 05/02/22 at [facility] (left leg) Hx of melanoma excision History of esophagogastroduodenoscopy (EGD) History of colonoscopy History of arthroscopy of knee multiple (bilateral) History of total knee arthroplasty bilat Family History Unknown Snoring FHx: deafness or hearing loss Mother Breast cancer FHx: deafness or hearing loss Sister Colon cancer FHx: deafness or hearing loss Social History Smoking Status: Former smoker Tobacco Type: Cigarettes Age Started Using Tobacco: 15; Age Quit Using Tobacco: 30; packs per day: 2; Second Hand Exposure: No; Do You Dip or Chew Tobacco: No; Hx Alcohol Use: No Hx Substance Use: No Preferred Language: Taiwanese Communication Ability: Unable Communication Ability Comment: Bilateral hearing aids Hearing Ability: Use of Hearing Aid City Collector Required: No Beliefs That Will Affect Care: Catholic Catholic Beliefs: 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 No specific healthcare practices. 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 Feels Safe at Home: Yes Diet: Weight Watchers caffeine: Yes Dental Care, Regularly: Yes Physical Activity Frequency: Daily Seatbelt Use: always Sunscreen Use: Yes Do you think of yourself as: straight/heterosexual Gender Identity: Male Assistive Devices: None Physical Exam Physical Exam: Intubated, sedated Not particularly reactive to my commands Abdomen soft Nunez catheter in place draining translucent but red urine, no significant clots present Results & Data Vital Signs (Past 12 Hours) Vital Signs Temp Pulse Resp BP Pulse Ox FiO2 02/06/24 07:26 84 02/06/24 07:09 78 20 96 40 02/06/24 05:09 37.8 C H 78 20 98 02/06/24 05:00 117/67 02/06/24 05:00 117/67 02/06/24 05:00 117/67 02/06/24 04:57 37.8 C H 83 20 98 02/06/24 04:48 37.8 C H 69 20 98 02/06/24 04:30 105/59 L 02/06/24 04:00 113/61 02/06/24 04:00 40 02/06/24 03:54 37.8 C H 81 20 96 02/06/24 03:45 84 20 97 40 02/06/24 03:30 113/62 02/06/24 03:27 37.8 C H 81 20 96 02/06/24 03:00 130/80 02/06/24 03:00 37.8 C H 85 20 96 02/06/24 02:30 114/61 02/06/24 02:21 37.8 C H 78 20 97 02/06/24 02:12 37.8 C H 69 20 96 02/06/24 01:42 37.8 C H 81 20 97 02/06/24 01:30 117/69 02/06/24 01:30 117/69 02/06/24 01:21 37.8 C H 88 20 97 02/06/24 01:09 37.8 C H 85 20 98 02/06/24 00:42 37.8 C H 77 20 97 02/06/24 00:30 121/70 02/06/24 00:27 37.8 C H 79 20 97 02/06/24 00:06 37.8 C H 77 20 96 02/06/24 00:00 81 02/06/24 00:00 134/67 02/06/24 00:00 134/67 02/05/24 23:54 37.8 C H 84 20 97 02/05/24 23:46 40 02/05/24 23:41 80 20 96 50 02/05/24 23:30 105/62 02/05/24 23:30 105/62 02/05/24 23:09 37.8 C H 78 20 98 02/05/24 23:00 37.7 C H 76 20 97 PG Care Time/CCT Total # of Minutes Spent Total Time Spent with Patient: Total time spent is greater than 50% in coordination of care (as documented) at patient's floor/unit and/or counseling patient: Coding Level of Care Code 46667 IN/OBS CONSULT LVL 4,60M Diagnoses Gross hematuria R31.0
[2024-02-06] MEDS: PLASMA-LYTE A 250 ML IV ONE (11:26)
[2024-02-06] MEDS: ACETAMINOPHEN 1,000 MG/100 ML VIAL IV SCH (16:07)
--- NOTE | 2024-02-06 18:06 | Hospitalist Progress Note ---
Date of Service February 06, 2024 Assessment & Plan (1) AMS (altered mental status): Plan: Likely due to hypoxic injury following cardiac arrest. Prognosis guarded. Pt opens eyes spontaneously, although does not yet follow commands this AM. ETT in place. Management/Sedation per ICU, attempting to transition to precedex, remains on fenantyl gtt. Following for pressure support & possible trial of extubation tomorrow. Appreciate management. CThead with loss of mendoza matter demarcation suggesting hypoxic injury 1. EEG nonspecific. Repeat CT with mild improvement in demarcation. (2) ST elevation (STEMI) myocardial infarction: Plan: Inferior STEMI, Heart failure with history of nonischemic cardiomyopathy [id number]-ob-lslsdgpn collapse, with a CPR and subsequent ROSC. Received 3 doses of epinephrine and 1 dose of atropine prehospital. Prehospital EKG with inferior ST elevations Taken to the [facility] emergently. Subsequently was found to have distal RCA acute occlusion s/p 4 DIANE. Subsequently moved to the ICU for recovery Echo with EF 35-40% severe inferior/inferolateral/basal inferoseptal hypokinesis. Normal PA pressure. BBlocker and Entresto held for cardiogenic shock requiring pressors, resume once pressures permit.. Currently this is precluded as patient is on norepinephrine Continue DAPT aspirin/Brilinta via OG (3) HFrEF (heart failure with reduced ejection fraction): (4) Atrial fibrillation: Plan: A-fib EKG on admission A-fib. Continued on amiodarone on admission. 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 This is being transition to SQ heparin Beta-amina held on admission for cardiogenic shock on pressors Patient has had multiple severe GI bleeds and anemia. Did have ERNESTO clipping in 2019 - Eliquis held for development of hematuria (5) Complex sleep apnea syndrome: Plan: Intubated, ventilated (6) Fever: Plan: - Suspect MSSA PNA - Continues with fevers in the last 24 hours. PCT elevated. - Sputum MSSA positive, abx narrowed to Rocephin to complete 7 day course Blood cultures pending no growth to date (7) ANNA MARIE (acute kidney injury): Plan: ANNA MARIE Postcardiac arrest Downtrending creatinine, basline <1.4, nearing baseline. 1.48 on 02/05 Plan CODE STATUS: Full code Disposition: ICU Diet: N.p.o., ETT in place Admission and Anticipated Discharge Date Admission Date: February 03, 2024 Subjective Subjective limited by ETT. +development of hematuria, eliquis has been held. Tmax 24hr 37.8*C Physical Exam Physical Exam: General: Intubated, sedated. Does not follow commands. HEENT: Pupils equal, reactive to light Pulm: Diminished but grossly clear. ETT in place. No rales/rhonchi Cardiac: RRR, -mrg. Abdominal: nondistended, soft. BS present. Results & Data Results & Data Vital Signs (Past 12 Hours) Vital Signs Temp Pulse Resp BP Pulse Ox O2 Del Method FiO2 02/06/24 13:45 137/89 02/06/24 13:36 37.2 C 70 16 93 02/06/24 13:30 140/82 02/06/24 13:30 140/82 02/06/24 13:30 37.2 C 80 16 96 02/06/24 13:15 37.2 C 73 16 96 Mechanical Vent 02/06/24 13:15 117/67 02/06/24 13:06 37.3 C 77 16 96 02/06/24 13:00 122/72 02/06/24 12:57 37.3 C 74 16 96 02/06/24 12:45 130/69 02/06/24 12:45 130/69 02/06/24 12:42 37.3 C 81 16 99 02/06/24 12:30 115/74 02/06/24 12:30 115/74 02/06/24 12:30 115/74 02/06/24 12:15 111/66 02/06/24 12:06 37.3 C 76 24 98 02/06/24 12:03 37.3 C 67 21 99 02/06/24 12:00 107/64 02/06/24 12:00 107/64 02/06/24 12:00 40 02/06/24 11:54 37.3 C 77 21 98 02/06/24 11:45 110/62 02/06/24 11:39 37.4 C 69 21 97 02/06/24 11:30 98/66 L 02/06/24 11:30 98/66 L 02/06/24 11:30 37.4 C 70 21 98 02/06/24 11:20 68 20 96 40 02/06/24 11:12 37.5 C 70 22 97 02/06/24 11:00 84/50 L 02/06/24 10:54 37.5 C 67 21 97 02/06/24 10:49 81/53 L 02/06/24 10:42 37.5 C 72 21 95 02/06/24 10:30 89/55 L 02/06/24 10:30 89/55 L 02/06/24 10:27 37.5 C 75 21 94 02/06/24 10:12 37.6 C H 77 21 96 02/06/24 10:00 126/72 02/06/24 09:42 37.8 C H 85 0 L 96 02/06/24 09:30 128/64 02/06/24 09:30 128/64 02/06/24 09:30 128/64 02/06/24 09:30 37.8 C H 70 19 95 02/06/24 09:00 37.8 C H 90 10 L 96 02/06/24 09:00 146/100 H 02/06/24 09:00 146/100 H 02/06/24 09:00 146/100 H 02/06/24 08:30 37.8 C H 80 20 98 02/06/24 08:30 114/70 02/06/24 08:00 103/59 L 02/06/24 08:00 103/59 L 02/06/24 08:00 40 02/06/24 07:26 84 02/06/24 07:09 78 20 96 40 02/06/24 05:09 37.8 C H 78 20 98 02/06/24 05:00 117/67 02/06/24 05:00 117/67 02/06/24 05:00 117/67 02/06/24 04:57 37.8 C H 83 20 98 02/06/24 04:48 37.8 C H 69 20 98 02/06/24 04:30 105/59 L 02/06/24 04:00 113/61 02/06/24 04:00 40 02/06/24 03:54 37.8 C H 81 20 96 02/06/24 03:45 84 20 97 40 02/06/24 03:30 113/62 02/06/24 03:27 37.8 C H 81 20 96 PG Care Time/CCT Total # of Minutes Spent Total Time Spent with Patient: Total time spent is greater than 50% in coordination of care (as documented) at patient's floor/unit and/or counseling patient: Coding Level of Care Code None Diagnoses AMS (altered mental status) R41.82 ST elevation (STEMI) myocardial infarction I21.11 Involved coronary artery: right coronary artery HFrEF (heart failure with reduced ejection fraction) I50.20 Atrial fibrillation I48.91 Complex sleep apnea syndrome G47.31 Fever R50.9 ANNA MARIE (acute kidney injury) N17.9 (2) ST elevation (STEMI) myocardial infarction Involved coronary artery: right coronary artery Qualified Code(s): I21.11 - ST elevation (STEMI) myocardial infarction involving right coronary artery
[2024-02-07] MEDS: DEXTROSE 50% 50 ML SYRINGE IV PRN (06:01)
[2024-02-07] MEDS ORDERED: CARBOHYDRATES FOR HYPOGLYCEMIA PO PRN (06:05)
[2024-02-07] MEDS ORDERED: GLUCAGON FOR INJ 1 MG VIAL SQ PRN (06:05)
[2024-02-07] MEDS ORDERED: GLUCOSE 40% GEL 15 GM TUBE PO PRN (06:05)
[2024-02-07] MEDS ORDERED: GLUCOSE 10 TAB/TUBE PO PRN (06:05)
[2024-02-07] MEDS: DEXTROSE 50% 50 ML SYRINGE IV ONE (06:12)
[2024-02-07 07:08] LABS: BUN Creatinine Ratio 28.7 (10-20); Calcium 7.4 mg/dl (8.6-10.3); Creatinine Clr Calc Pharmacy 68.3 ml/min
[2024-02-07] MEDS: propofoL 1,000 MG/100 ML VIAL IV SCH (07:09)
[2024-02-07] MEDS ORDERED: PROPOFOL BOLUS FROM BAG IV PRN ×2 (07:13)
[2024-02-07] MEDS ORDERED: STAT IV Infusion **Titration per Protocol STA (07:13)
[2024-02-07 07:15] LABS: Hematocrit (blood only) 25.7 % (42.0-52.0); Hemoglobin 8.7 g/dl (14.0-18.0); Mean Corpuscular Hemoglobin 31.5 pg (25.0-34.0); Mean Corpuscular Hgb Conc 33.9 g/dL (32.0-36.0); Mean Corpuscular Volume 93.1 fL (80.0-100.0); Mean Platelet Volume 12.7 fL (9.4-12.4); Platelet Count 75 K/uL (130-400); RDW Coefficient of Variation 14.6 % (11.5-14.5); RDW Standard Deviation 49.7 fL (36.4-46.3); Red Blood Count 2.76 M/uL (4.70-6.10); White Blood Count 7.78 K/ul (4.8-10.8)
[2024-02-07 07:33] LABS: Basophils # (auto) 0.02 K/uL (0.00-0.20); Basophils % (auto) 0.3 %; Eosinophils # (auto) 0.05 K/uL (0.00-0.50); Eosinophils % (auto) 0.6 %; Immature Granulocytes # (auto) 0.04 K/uL (0.01-0.20); Immature Granulocytes % (auto) 0.5 %; Lymphocytes # (auto) 0.43 K/uL (1.20-3.40); Lymphocytes % (auto) 5.5 %; Monocytes # (auto) 0.49 K/uL (0.11-0.59); Monocytes % (auto) 6.3 %; Neutrophils # (auto) 6.75 K/uL (1.40-6.50); Neutrophils % (auto) 86.8 %; Polychromasia 1+
[2024-02-07] MEDS: PROPOFOL IV EMULSION 10 MG/ML 100 ML VIAL IV ONE (08:08)
--- NOTE | 2024-02-07 08:12 | XRay Report ---
XR chest 1V portable HISTORY: 73 years-old Male f/u respiratory failure COMPARISON: 02/05/2024 TECHNIQUE: AP view of the chest FINDINGS: Endotracheal tube overlies midline, 3 cm superior to the rodo. Distal tip of enteric tube projects over the abdominal upper quadrant. Cardiac silhouette is enlarged. Pulmonary vascular congestion with progressive interstitial coarsening. No pneumothorax. The size of the layering pleural effusions wit h bibasilar consolidation. Unchanged mediastinal contours. IMPRESSION: 1. Endotracheal and enteric tube positioning as above. 2. Cardiomegaly with progressive pulmonary edema. 3. Increased size of the layering pleural effusions with progressive bibasilar consolidation. ACT 112: Negative or not required by law. The above report was generated using voice recognition software. It may contain grammatical, syntax o r spelling errors. Electronically signed by: Shiva Ponce M.D. 02/07/2024 8:10 AM
--- NOTE | 2024-02-07 08:22 | Critical Care Progress Note ---
Date of Service February 07, 2024 Assessment & Plan (1) HFrEF (heart failure with reduced ejection fraction): (2) ST elevation (STEMI) myocardial infarction: (3) Contusion of forehead: (4) Cardiac arrest: (5) Complex sleep apnea syndrome: (6) Atrial fibrillation, persistent: (7) Shock circulatory: (8) Transaminitis: Plan Reason Critically Ill: 73-year-old male past medical history of complex sleep apnea, A-fib, systolic CHF presented to the hospital with cardiac arrest. Went to the [facility] and 4 stents were placed in RCA Neuro - [facility] ICU: Unable to assess Sedation: Fentanyl Patient is very sensitive to propofol as well as Precedex. He gets bradycardic and hypotensive very easily while on them CT head 02/03/2024 shows blurring of the mendoza-white matter, inclining more towards hypoxic brain injury Repeat CT head 02/05/2024 showed mendoza-white interface more distinct compared to before. No territory infarct or intracranial hemorrhage EEG 02/05/2024: Mild generalized slowing which is nonspecific. --Frontal hematoma Secondary to fall from cardiac arrest No bleed on the CT head Cardiac - -- Cardiac arrest, s/p cardiogenic shock S/p 4 stents placed in distal RCA on 02/03/2024 Continue with dual antiplatelet therapy Amiodarone drip transitioned to p.o. amiodarone on 02/05/2024 2D echo 02/03/2024: EF 35-40% Respiratory - -- Ventilator dependent respiratory failure For airway protection postcardiac arrest Keep RASS -1 Daily sedation holidays and SBT's S/p bronchoscopy 02/07/2024, mucous plugging appreciated in the right lower lobe as well as left lower lobe. Suction clear Friable mucosa with easy bleeding GI - -- Transaminitis Likely from shock Continue to trend - -- Hematuria Does have BPH Could be from traumatic insertion of Nunez RENAL/LYTES - -- ANNA MARIE on CKD Secondary to cardiac arrest and hypotension Monitor BUN/creatinine Avoid nephrotoxic medications Strict ins and outs ENDO - ICU hypoglycemia protocol HEME - --Hemoglobin trending down No clear source of bleeding except for hematuria --History of chronic thrombocytopenia Continue to monitor ID - -- MSSA in the sputum --New onset fever Likely central Blood culture negative to date Sputum culture is growing MSSA --> Zosyn changed to Rocephin, will complete the course for total of 7 days Procalcitonin is 2.02 -- Leukocytosis Likely reactive to cardiac arrest Continue to monitor --Prophylaxis VTE: Eliquis on hold GI: Pantoprazole Lines: Peripheral Diet: Tube feeds Plan: In/out: +711, urine output 1520, +7 L since coming to the hospital Chest x-ray from today shows worsening infiltrate on the right side, likely secondary to aspiration Continue with p.o. amiodarone Hemoglobin unfortunately is trending down. Will repeat H&H later today. If it is trending down then we will order CT of the abdomen and pelvis I did discuss the case with cardiology, if there is decline in hemoglobin then transition of Brilinta to Plavix with loading dose of Plavix 300 mg tomorrow could be thought of Resume tube feeds at a lower rate Patient's and family who are at bedside were updated regarding his condition I have personally spent 40 minutes of critical care time in the direct management of this patient. This is a life/limb threatening event. This includes time spent evaluating patient, direct bedside care, chart review, placing orders, interpretation of diagnostic studies, discussion with consultants, patient, and family members, as well as other required patient management activities. This time is exclusive of all separately billable procedures, and teaching time and separate from and in addition to any other critical care service time. Admission and Anticipated Discharge Date Admission Date: February 03, 2024 Subjective Patient seen and examined at bedside. No acute distress No adverse events overnight He was on 10 of propofol and 100 of fentanyl at the time of examination He is opening his eyes but not following any commands Does get restless very easily. He did have an episode of vomiting and aspiration yesterday. Still spiking low-grade fever Tmax 37.6 Review of Systems 2 Review of Systems: All systems reviewed & are unremarkable except as noted in Subjective Physical Exam 2 Physical Exam: Constitutional: No acute distress HEENT: Sluggish pupillary response bilaterally, infraorbital as well as supraorbital ecchymosis Respiratory system: Decreased air entry bilaterally, no wheeze, no rhonchi, mild crackles bilaterally CVS: S1-S2 positive, no murmurs or gallops Abdomen: Soft, nontender, nondistended, positive bowel sounds x4 Extremities: +2 pulses bilaterally radialis/ dorsalis pedis, no cyanosis, no edema Neuro: Breathing over the vent, opening eyes spontaneously, moving bilateral upper extremities spontaneously Psych: Unable to assess G/U: Positive Nunez Skin: no rashes, warm and dry Lymphatic: no cervical or axillary lymphadenopathy Results & Data Results & Data Vital Signs (Past 12 Hours) Vital Signs Temp Pulse Resp BP Pulse Ox O2 Del Method FiO2 02/07/24 07:42 68 16 100 40 02/07/24 06:03 37.5 C 66 17 97 02/07/24 06:00 117/72 02/07/24 06:00 117/72 02/07/24 06:00 117/72 02/07/24 05:57 37.5 C 65 16 100 02/07/24 05:30 111/71 02/07/24 05:30 37.5 C 69 16 100 02/07/24 05:06 37.4 C 67 16 100 02/07/24 04:30 105/66 02/07/24 04:30 37.4 C 70 16 100 02/07/24 04:04 Mechanical Vent 02/07/24 04:03 37.3 C 60 16 100 02/07/24 04:00 112/71 02/07/24 04:00 40 02/07/24 03:57 37.3 C 74 16 100 02/07/24 03:30 118/73 02/07/24 03:30 37.3 C 76 16 100 02/07/24 03:04 80 16 100 40 02/07/24 03:03 37.4 C 73 16 100 02/07/24 03:00 114/64 02/07/24 03:00 114/64 02/07/24 02:57 37.5 C 84 16 95 02/07/24 02:30 98/65 L 02/07/24 02:30 98/65 L 02/07/24 02:30 98/65 L 02/07/24 02:30 98/65 L 02/07/24 02:24 37.5 C 61 16 99 02/07/24 02:21 37.4 C 75 16 99 02/07/24 02:00 116/77 02/07/24 02:00 116/77 02/07/24 01:48 37.4 C 64 16 98 02/07/24 01:06 37.4 C 75 16 100 02/07/24 01:00 107/70 02/07/24 01:00 107/70 02/07/24 00:45 37.4 C 77 16 99 02/07/24 00:00 37.4 C 67 16 100 02/07/24 00:00 110/64 02/07/24 00:00 110/64 02/07/24 00:00 110/64 02/07/24 00:00 Mechanical Vent 40 02/07/24 00:00 40 02/06/24 23:30 116/84 02/06/24 23:09 37.2 C 72 16 100 02/06/24 23:00 37.2 C 69 16 100 02/06/24 22:25 66 15 98 40 02/06/24 22:06 37.0 C 64 16 97 02/06/24 22:00 108/67 02/06/24 22:00 108/67 02/06/24 22:00 108/67 02/06/24 21:42 36.9 C 73 16 97 02/06/24 21:30 109/58 L 02/06/24 21:30 109/58 L 02/06/24 21:30 36.9 C 68 16 97 02/06/24 21:21 36.9 C 81 16 100 02/06/24 21:15 113/65 02/06/24 21:15 113/65 02/06/24 21:00 113/57 L 02/06/24 21:00 113/57 L 02/06/24 21:00 113/57 L 02/06/24 20:51 36.9 C 74 24 98 02/06/24 20:45 37.0 C 87 21 98 02/06/24 20:45 153/92 H 02/06/24 20:45 153/92 H 02/06/24 20:45 153/92 H 02/06/24 20:30 140/86 02/06/24 20:24 37.0 C 16 100 Laboratory Results 02/07/24 06:17 02/07/24 06:17 Coding Level of Care Code 06066 CRITICAL CARE 1ST 30-74M Diagnoses HFrEF (heart failure with reduced ejection fraction) I50.20 ST elevation (STEMI) myocardial infarction I21.11 Involved coronary artery: right coronary artery Contusion of forehead S00.83XA Encounter type: initial encounter Cardiac arrest I46.9 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
[2024-02-07 09:12] LABS: Partial Thromboplastin Ratio 1.2; Partial Thromboplastin Time 32 Seconds (21-31); Prothrombin Time 10.8 Seconds (9.0-12.0)
[2024-02-07 09:30] LABS: Fibrinogen 757 mg/dl (184-400)
[2024-02-07] MEDS ORDERED: PHENYLEPHRINE 100MCG/ML 5ML SYR IV PRN (09:36)
--- NOTE | 2024-02-07 10:36 | XRay Report ---
XR chest 1V portable HISTORY: 73 years-old Male post bronch status post bronchoscopy COMPARISON: Chest radiograph of same day TECHNIQUE: AP view the chest FINDINGS: Endotracheal tube overlies the midline, 5 cm superior to the rodo. Enteric tube courses into the st omach with distal tip outside the [id number]-[id number]. Cardiac silhouette is enlarged. Pulmonary vascular c ongestion with persistent interstitial coarsening. No pneumothorax. Stable size of the layering pleur al effusions with bibasilar consolidation. Unchanged mediastinal contours. IMPRESSION: 1. No postprocedural pneumothorax. 2. Endotracheal and enteric tube positioning as above. 3. Cardiomegaly with unchanged pulmonary edema, pleural effusions and bibasilar consolidation. ACT 112: Negative or not required by law. The above report was generated using voice recognition software. It may contain grammatical, syntax o r spelling errors. Electronically signed by: Shiva Ponce M.D. 02/07/2024 10:34 AM
[2024-02-07] MEDS: ATROPINE SULFATE 0.1 MG/ML 10ML SYR IV ONE (11:08)
--- NOTE | 2024-02-07 11:17 | Cardiology Progress Note ---
Date of Service February 07, 2024 Assessment & Plan (1) ST elevation (STEMI) myocardial infarction: Plan: Post PCI with 4 DIANE to RCA Moderate to severe nonculprit disease (45% proximal LAD, 70% small mid to distal LCx)medical management 2. Nyb-wr-bipealbm cardiac arrest 3. Ischemic cardiomyopathyEF 35-40% with inferior/inferolateral wall motion abnormality 4. Suspected anoxic brain injury 5. Respiratory failure 6. Anemia 7. ANNA MARIE 8. Permanent atrial fibrillation Electrically stable Hemodynamically stable off pressors Hemoglobin trending down now 8.7 Stable oxygenation. Congestion on chest x-ray. +7 L over admission Good urine output. Creatinine improved. Mild hyponatremia Gentle diuresis as able Agree with CT to evaluate for bleeding if hemoglobin continues to trend down Agree with holding Eliquis Okay to transition ticagrelor to clopidogrel, load 300 mg tomorrow Continue DAPT while Eliquis on hold. When Eliquis restarted can stop aspirin Continue p.o. amiodarone Continue current statin Can start low-dose beta-amina as BP allows Appreciate ICU team and medicine care. Admission and Anticipated Discharge Date Admission Date: February 03, 2024 Subjective Awake, agitated. Does not follow commands. Afebrile Hematuria with worsening anemia. Seen by urology yesterday. Eliquis on hold Telemetry reviewedno events Physical Exam Physical Exam: General: Intubated sedated, ETT in place HEENT: Sclerae anicteric, pupils equal, Lungs: Clear anteriorly Cardiac: Distant heart sounds, irregular irregular, no murmurs Vascular: Right radial artery access site with no ecchymosis, hematoma. 2+ radial pulse Abdomen: Soft Extremities: Distal extremities cool, no edema Results & Data Vital Signs (Past 12 Hours) Vital Signs Temp Pulse Resp BP Pulse Ox O2 Del Method O2 Flow Rate 02/07/24 10:26 65 16 100 02/07/24 10:26 Mechanical Vent 02/07/24 08:00 02/07/24 08:00 61 02/07/24 08:00 Mechanical Vent 40 02/07/24 07:42 68 16 100 02/07/24 06:03 99.5 F 66 17 97 02/07/24 06:00 117/72 02/07/24 06:00 117/72 02/07/24 06:00 117/72 02/07/24 05:57 99.5 F 65 16 100 02/07/24 05:30 111/71 02/07/24 05:30 99.5 F 69 16 100 02/07/24 05:06 99.3 F 67 16 100 02/07/24 04:30 105/66 02/07/24 04:30 99.3 F 70 16 100 02/07/24 04:04 Mechanical Vent 02/07/24 04:03 99.1 F 60 16 100 02/07/24 04:00 112/71 02/07/24 04:00 02/07/24 03:57 99.1 F 74 16 100 02/07/24 03:30 118/73 02/07/24 03:30 99.1 F 76 16 100 02/07/24 03:04 80 16 100 02/07/24 03:03 99.3 F 73 16 100 02/07/24 03:00 114/64 02/07/24 03:00 114/64 02/07/24 02:57 99.5 F 84 16 95 02/07/24 02:30 98/65 L 02/07/24 02:30 98/65 L 02/07/24 02:30 98/65 L 02/07/24 02:30 98/65 L 02/07/24 02:24 99.5 F 61 16 99 02/07/24 02:21 99.3 F 75 16 99 02/07/24 02:00 116/77 02/07/24 02:00 116/77 02/07/24 01:48 99.3 F 64 16 98 02/07/24 01:06 99.3 F 75 16 100 02/07/24 01:00 107/70 02/07/24 01:00 107/70 02/07/24 00:45 99.3 F 77 16 99 02/07/24 00:00 99.3 F 67 16 100 02/07/24 00:00 110/64 02/07/24 00:00 110/64 02/07/24 00:00 110/64 02/07/24 00:00 Mechanical Vent 02/07/24 00:00 02/06/24 23:30 116/84 FiO2 02/07/24 10:26 60 02/07/24 10:26 02/07/24 08:00 100 02/07/24 08:00 02/07/24 08:00 02/07/24 07:42 40 02/07/24 06:03 02/07/24 06:00 02/07/24 06:00 02/07/24 06:00 02/07/24 05:57 02/07/24 05:30 02/07/24 05:30 02/07/24 05:06 02/07/24 04:30 02/07/24 04:30 02/07/24 04:04 02/07/24 04:03 02/07/24 04:00 02/07/24 04:00 40 02/07/24 03:57 02/07/24 03:30 02/07/24 03:30 02/07/24 03:04 40 02/07/24 03:03 02/07/24 03:00 02/07/24 03:00 02/07/24 02:57 02/07/24 02:30 02/07/24 02:30 02/07/24 02:30 02/07/24 02:30 02/07/24 02:24 02/07/24 02:21 02/07/24 02:00 02/07/24 02:00 02/07/24 01:48 02/07/24 01:06 02/07/24 01:00 02/07/24 01:00 02/07/24 00:45 02/07/24 00:00 02/07/24 00:00 02/07/24 00:00 02/07/24 00:00 02/07/24 00:00 40 02/07/24 00:00 40 02/06/24 23:30 PG Care Time/CCT Total # of Minutes Spent Total Time Spent with Patient: Total time spent is greater than 50% in coordination of care (as documented) at patient's floor/unit and/or counseling patient: Coding Level of Care Code 63457 SUB INP/OBS CARE 3/50MIN Diagnoses ST elevation (STEMI) myocardial infarction I21.11 Involved coronary artery: right coronary artery (1) ST elevation (STEMI) myocardial infarction Involved coronary artery: right coronary artery Qualified Code(s): I21.11 - ST elevation (STEMI) myocardial infarction involving right coronary artery
--- NOTE | 2024-02-07 11:30 | Procedure Note ---
Procedure Note: Bronchoscopy Procedure PREOPERATIVE DIAGNOSIS: New multifocal opacities with aspiration POSTOPERATIVE DIAGNOSIS: Mucous plugging with diffuse friable mucosa PROCEDURE PERFORMED: Flexible fiberoptic bronchoscopy with bronchial wash and clearing mucous plugging COMPLICATIONS: None. INDICATION: As above PROCEDURE: After obtaining an informed consent, the patient was already in the ICU intubated. The patient had appropriate oxygen, blood pressure, heart rate, and respiratory rate monitoring applied and monitored continuously throughout the procedure. FiO2 was increased to 100% 20 minutes prior to the procedure, PEEP was kept at 5 Patient was given 50 mcg bolus of fentanyl Disposable bronchoscope was advanced through ETT The distal os of the ETT was abutting the posterior wall of the trachea. There were abrasions/exfoliation of the mucosa likely from the suction catheter causing the trauma. The ET tube was advanced and turned over the bronchoscope which led to good positioning of the distal os of ETT The trachea appeared normal. Mucosa was very friable. The bronchoscope was then advanced through the rodo, which was sharp. There was thin secretions at the left main which were suctioned out. The scope was then advanced into the right main stem and each segment, subsegement in the right upper lobe, right middle lobe and right lower lobe were visualized. There were no other findings including evidence of mass, anatomic distortions, or hemorrhage. The bronchoscope was subsequently withdrawn and advanced into the left mainstem. Again, each segment and subsegment was well visualized. No specific masses or other lesions were identified throughout the tracheobronchial tree on the left. Again friable mucosa was appreciated. There was secretion in the left lower lobe whitish clear which were suctioned out. The bronchoscope was then wedged in the RBI and bronchoalveolar lavage samples were obtained. 60 ml of saline was instilled and 30 ml of fluid was aspirated back.The bronchoscope was withdrawn and the area was suctioned clear. The bronchoscope was then withdrawn to the mainstem. The area was suctioned clear. The bronchoscope was then withdrawn. The patient tolerated the procedure well without evidence of desaturation or complications. Bronchoalveolar lavage samples were sent for cell count, Gram stain and bacterial culture, AFB culture. Recommendations: Follow-up micro Follow-up chest x-ray Please note the above document was generated using voice recognition software. It may contain grammatical, syntax or spelling errors.Any formal questions or concerns about the content, text or information contained within the body of this dictation should be directly addressed to the provider for clarification. [facility] [place] Procedure Codes (Charges) Pulmonary/Thoracic Procedure 1: Pulmonary and Thoracic: 98614 Bronchoscopy, clear airways Procedure 2: Pulmonary and Thoracic: 51676 Dx bronchoscopy/wash
--- NOTE | 2024-02-07 13:22 | Hospitalist Progress Note ---
Date of Service February 07, 2024 Assessment & Plan (1) AMS (altered mental status): Plan: Likely due to hypoxic injury following cardiac arrest. Prognosis guarded. Pt opens eyes spontaneously, although does not yet follow commands this AM. ETT in place. Management/Sedation per ICU, Sensitive to Precedex and propofol, continued on fentanyl. Appreciate management. CThead with loss of mendoza matter demarcation suggesting hypoxic injury 1. EEG nonspecific. Repeat CT with improvement in demarcation. Patient remains critically ill in the ICU, primary management by cardiovascular physician assistant team. Will follow along, appreciate recommendations and management. (2) ST elevation (STEMI) myocardial infarction: Plan: Inferior STEMI, Heart failure with history of nonischemic cardiomyopathy [id number] collapse, with a CPR and subsequent ROSC. Received 3 doses of epinephrine and 1 dose of atropine prehospital. Prehospital EKG with inferior ST elevations Taken to [facility] emerg[facility]. Subsequently was found to have distal RCA acute occlusion s/p 4 DIANE. Subsequently moved to the ICU for recovery Echo with EF 35-40% severe inferior/inferolateral/basal inferoseptal hypokinesis. Normal PA pressure. BBlocker and Entresto held for cardiogenic shock requiring pressors, resume once pressures permit.. Currently this is precluded as patient is on norepinephrine Continue DAPT aspirin/Brilinta via OG. Hemoglobin is downtrending, patient may have a repeat CTA/P if needed afternoon, and if hemoglobin downtrending may transition to aspirin/Plavix. Cardiology. (3) HFrEF (heart failure with reduced ejection fraction): (4) Atrial fibrillation: Plan: A-fib EKG on admission A-fib. Continued on amiodarone on admission. On apixaban [employer]. This is being transition to SQ heparin Beta-amina held on admission for cardiogenic shock on pressors Patient has had multiple severe GI bleeds and anemia. Did have ERNESTO clipping in 2019 - Eliquis held for development of hematuria and downtrending hemoglobin (5) Complex sleep apnea syndrome: Plan: Intubated, ventilated (6) Fever: Plan: - Suspect MSSA PNA - Last fever 02/05 at 1012 hrs. - Sputum MSSA positive, abx narrowed to Rocephin to complete 7 day course Blood cultures pending no growth to date Increased pleural effusions and bibasilar consolidation on serial x-ray. S/p bronchoscopy with bronchial wash/clearing of mucous plugging. Left lower lobe secretions suctioned, critical care pulmonology following. Appreciate management (7) ANNA MARIE (acute kidney injury): Plan: ANNA MARIE Postcardiac arrest Downtrending creatinine, basline <1.4, at baseline 05.25. Plan CODE STATUS: Full code Disposition: ICU Diet: N.p.o., ETT in place Admission and Anticipated Discharge Date Admission Date: February 03, 2024 Subjective Subjective limited by ett Physical Exam Physical Exam: General: Intubated, sedated. Does not follow commands. HEENT: Pupils equal, reactive to light Pulm: ETT in place. No rales/rhonchi Cardiac: RRR, -mrg. Abdominal: nondistended, soft. Results & Data Results & Data Vital Signs (Past 12 Hours) Vital Signs Temp Pulse Resp BP Pulse Ox O2 Del Method O2 Flow Rate 02/07/24 12:00 02/07/24 12:00 Mechanical Vent 02/07/24 10:26 65 16 100 02/07/24 10:26 Mechanical Vent 02/07/24 08:00 02/07/24 08:00 61 02/07/24 08:00 Mechanical Vent 40 02/07/24 07:42 68 16 100 02/07/24 06:03 37.5 C 66 17 97 02/07/24 06:00 117/72 02/07/24 06:00 117/72 02/07/24 06:00 117/72 02/07/24 05:57 37.5 C 65 16 100 02/07/24 05:30 111/71 02/07/24 05:30 37.5 C 69 16 100 02/07/24 05:06 37.4 C 67 16 100 02/07/24 04:30 105/66 02/07/24 04:30 37.4 C 70 16 100 02/07/24 04:04 Mechanical Vent 02/07/24 04:03 37.3 C 60 16 100 02/07/24 04:00 112/71 02/07/24 04:00 02/07/24 03:57 37.3 C 74 16 100 02/07/24 03:30 118/73 02/07/24 03:30 37.3 C 76 16 100 02/07/24 03:04 80 16 100 02/07/24 03:03 37.4 C 73 16 100 02/07/24 03:00 114/64 02/07/24 03:00 114/64 02/07/24 02:57 37.5 C 84 16 95 02/07/24 02:30 98/65 L 02/07/24 02:30 98/65 L 02/07/24 02:30 98/65 L 02/07/24 02:30 98/65 L 02/07/24 02:24 37.5 C 61 16 99 02/07/24 02:21 37.4 C 75 16 99 02/07/24 02:00 116/77 02/07/24 02:00 116/77 02/07/24 01:48 37.4 C 64 16 98 FiO2 02/07/24 12:00 60 02/07/24 12:00 50 02/07/24 10:26 60 02/07/24 10:26 02/07/24 08:00 100 02/07/24 08:00 02/07/24 08:00 02/07/24 07:42 40 02/07/24 06:03 02/07/24 06:00 02/07/24 06:00 02/07/24 06:00 02/07/24 05:57 02/07/24 05:30 02/07/24 05:30 02/07/24 05:06 02/07/24 04:30 02/07/24 04:30 02/07/24 04:04 02/07/24 04:03 02/07/24 04:00 02/07/24 04:00 40 02/07/24 03:57 02/07/24 03:30 02/07/24 03:30 02/07/24 03:04 40 02/07/24 03:03 02/07/24 03:00 02/07/24 03:00 02/07/24 02:57 02/07/24 02:30 02/07/24 02:30 02/07/24 02:30 02/07/24 02:30 02/07/24 02:24 02/07/24 02:21 02/07/24 02:00 02/07/24 02:00 02/07/24 01:48 PG Care Time/CCT Total # of Minutes Spent Total Time Spent with Patient: Total time spent is greater than 50% in coordination of care (as documented) at patient's floor/unit and/or counseling patient: Coding Level of Care Code 09473 SUB INP/OBS CARE Diagnoses AMS (altered mental status) R41.82 ST elevation (STEMI) myocardial infarction I21.11 Involved coronary artery: right coronary artery HFrEF (heart failure with reduced ejection fraction) I50.20 Atrial fibrillation I48.91 Complex sleep apnea syndrome G47.31 Fever R50.9 ANNA MARIE (acute kidney injury) N17.9 (2) ST elevation (STEMI) myocardial infarction Involved coronary artery: right coronary artery Qualified Code(s): I21.11 - ST elevation (STEMI) myocardial infarction involving right coronary artery
[2024-02-07 16:24] LABS: Hematocrit (blood only) 26.7 % (42.0-52.0); Hemoglobin 9.1 g/dl (14.0-18.0)
[2024-02-07] MEDS: FUROSEMIDE INJ 20 MG/2 ML VIAL IV ONE (20:58)
[2024-02-08 04:13] VITALS: O2SAT 94
[2024-02-08 04:32] LABS: Basophils # (auto) 0.04 K/uL (0.00-0.20); Basophils % (auto) 0.4 %; Eosinophils # (auto) 0.09 K/uL (0.00-0.50); Hematocrit (blood only) 24.1 % (42.0-52.0); Hemoglobin 8.2 g/dl (14.0-18.0); Immature Granulocytes # (auto) 0.05 K/uL (0.01-0.20); Immature Granulocytes % (auto) 0.5 %; Lymphocytes # (auto) 0.62 K/uL (1.20-3.40); Lymphocytes % (auto) 6.8 %; Mean Corpuscular Hemoglobin 31.4 pg (25.0-34.0); Mean Corpuscular Volume 92.3 fL (80.0-100.0); Mean Platelet Volume 12.6 fL (9.4-12.4); Monocytes # (auto) 1.14 K/uL (0.11-0.59); Monocytes % (auto) 12.4 %; Neutrophils # (auto) 7.23 K/uL (1.40-6.50); Neutrophils % (auto) 78.9 %; Platelet Count 96 K/uL (130-400); RDW Coefficient of Variation 14.8 % (11.5-14.5); RDW Standard Deviation 49.2 fL (36.4-46.3); Red Blood Count 2.61 M/uL (4.70-6.10); White Blood Count 9.17 K/ul (4.8-10.8)
[2024-02-08 04:43] LABS: BUN Creatinine Ratio 25.2 (10-20); Calcium 7.6 mg/dl (8.6-10.3); Creatinine Clr Calc Pharmacy 66.2 ml/min; Magnesium 2.3 mg/dl (1.7-2.4); Phosphorus 2.1 mg/dl (2.5-4.9); Potassium 3.4 mmol/L (3.5-5.1)
[2024-02-08] MEDS ORDERED: POTASSIUM PHOS 3 MMOL/1 ML INFUSION IV STA (04:53)
[2024-02-08] MEDS: POTASSIUM CHLORIDE 20 MEQ/15 ML UDC PO STA (05:08)
[2024-02-08] MEDS: OPTIRAY 320 125ml IV ONE (06:11)
[2024-02-08] MEDS: POTASSIUM PHOSPHATE 8 MMOL in SODIUM CHLORIDE 0.9% 250 ML IV ONE (06:44)
[2024-02-08 07:05] VITALS: BP 103/55; TEMP 99
--- NOTE | 2024-02-08 07:31 | CT Scan Report ---
CT OF THE ABDOMEN AND PELVIS WITH CONTRAST CLINICAL HISTORY: eval for occult bleeding COMPARISON STUDY: Renal ultrasound May 02, 2022. TECHNIQUE: Following IV administration of 118 mL of Optiray, axial images of the abdomen and pelvis w ere obtained from the lung bases to the proximal femurs. Images were reviewed in the axial, sagittal, and coronal planes. IV contrast was administered without complication. Automated exposure control w as utilized for the study. A dose lowering technique was utilized adhering to the principles of RAMSEY Chatterjee. FINDINGS: Please note that the chest CT will be reported separately. Small bilateral pleural effusion s with extensive left lower lobe and segmental right lower lobe airspace opacities are better depicte d on that exam. In addition, multiple acute appearing displaced anterior bilateral rib fractures are better depicted on that exam. No pneumoperitoneum is present. There is no portal venous gas. There is a 13.1 x 5.5 cm subcapsular hyperdense fluid collection overlying the lateral segment of the liver c onsistent with a subcapsular hematoma. There is an adjacent 4.2 cm linear density within the lateral segment of the liver on image 115. There is a small to moderate amount of hyperdense perihepatic and perisplenic fluid consistent with hemoperitoneum. Subtle linear hypodensity within the anterior aspec t of the spleen on image 113 is noted. A small splenic laceration cannot be excluded. No active extra vasation is identified on this examination. There is a small amount of hyperdense fluid within the pe lvis. There is no evidence for a bowel obstruction. The gallbladder is moderately distended. A small amount of layering hyperdense material within the gallbladder is present. Infrarenal abdominal aortic aneurysm measures 3.2 cm. The prostate is enlarged. Nunez balloon within the bladder is present. No acute lumbar spine, pelvis or hip fractures are present. Body wall edema is present. Small hypodense bilateral renal lesions are too small to characterize. There is no hydronephrosis. There is no retrop eritoneal hematoma. IMPRESSION: 1. Evidence for traumatic injury to the liver with a 13.1 x 5.5 cm subcapsular hematoma overlying the lateral segment of the liver. Adjacent 4.2 cm linear density within the liver could represent a unde rlying liver laceration or artifact. No active extravasation. This finding will be called/faxed to [facility] ordering provider at time of dictation. 2. Small to moderate hemoperitoneum within the abdomen and pelvis. 3. Linear density within the anterior aspect of the spleen which may represent a small splenic lacera tion or artifact. 4. Multiple acute anterior bilateral rib fractures better depicted on the chest CT will be reported s eparately. 5. Bilateral pleural effusions and lower lobe airspace opacities, greater within the left lower lobe, also better depicted on the chest CT. 6. 3.2 cm infrarenal abdominal aortic aneurysm. 7. Gallbladder distention without pericholecystic stranding. Layering material within the gallbladder could reflect sludge or stones. ACT 112: Negative or not required by law. Electronically signed by: Rancho Carr M.D. 02/08/2024 7:30 AM
[2024-02-08 07:45] VITALS: RESP 16
--- NOTE | 2024-02-08 08:05 | CT Scan Report ---
CT ANGIOGRAM OF THE CHEST CLINICAL HISTORY: Hemorrhage. COMPARISON STUDY: Chest x-ray dated 02/07/2024. TECHNIQUE: Following the IV administration of 118 cc of Optiray 320, CT angiogram of the chest was pe rformed from the thoracic inlet to the upper abdomen utilizing the dissection protocol. Images are re viewed in the axial, sagittal, and coronal planes. 3-D MIPS images are created and assessed. IV contr ast was administered without complication. A dose lowering technique was utilized adhering to the pr inciples of SVETA. The examination is degraded by motion artifact, as well as by streak artifact from the arms which could not be elevated above the chest. CT DOSE: 3109.17 mGy.cm FINDINGS: Thyroid: Normal in size and heterogeneous in attenuation. Thoracic aorta: There is mild atherosclerotic calcification of the thoracic aorta, which is normal in caliber and demonstrates standard 3-vessel arch anatomy. No dissection is seen. The arch vessels are widely patent. Pulmonary vasculature: The pulmonary trunk is normal in caliber. There are no central filling defects identified in the pulmonary vessels to suggest pulmonary embolus. Note that this examination was not specifically protocoled to assess for pulmonary emboli. Heart: The heart is enlargement noting trace pericardial effusion. The coronary arteries are densely calcified. Lungs and pleural spaces: An endotracheal tube terminates above the rodo. Emphysematous change is o bserved. There is no pneumothorax. There are small to moderate pleural effusions with dependent conso lidation. Mediastinum: There is trace mediastinal hemorrhage. No lymphadenopathy is seen. Fozia: Clear. Axillae: There is no axillary lymphadenopathy. Upper abdomen: An enteric tube is in place. This terminates just below the gastroesophageal junction. The gallbladder is distended. There is subcapsular hemorrhage within the left hepatic lobe as well a s perihepatic and perisplenic hemorrhage. Question hepatic and splenic lacerations. Skeletal structures: The skeletal structures are osteopenic. There is nondepressed fractures of the b naye of the sternum with surrounding hemorrhage, best seen on axial image #135. There are acute right anterior 2nd through 6th rib fractures. Several are mildly displaced. There are acute left anterior 4 th and 5th rib fractures which are mildly displaced. Degenerative change and hyperkyphosis is noted i n the thoracic spine. Arthritic change is seen in the shoulders. No lytic or blastic bony lesions are seen. IMPRESSION: 1. There is no CT evidence of traumatic injury to the thoracic aorta. 2. Numerous acute anterior rib fractures and a nondepressed sternal fracture. 3. [id number]-jp-[id number] pleural effusions with dependent consolidation. 4. No pneumothorax is seen. 5. Cardiomegaly and emphysema. 6. There is trace mediastinal hemorrhage, likely secondary to the sternal fracture. 7. There is subcapsular hemorrhage in the left hepatic lobe, hemoperitoneum, and possible splenic/hep atic lacerations. See today's abdominal CT report for detailed intra-abdominal findings. 8. Endotracheal and enteric tubes are in place as above. The enteric tube should likely be advanced. 9. Additional findings as above. ACT 112: Negative or not required by law. Electronically signed by: Jayy German M.D. 02/08/2024 8:03 AM
--- NOTE | 2024-02-08 08:33 | XRay Report ---
XR chest 1V portable CLINICAL HISTORY: eval tubes/lines/lung nails COMPARISON STUDY: Chest radiograph February 07, 2024. Chest CT performed earlier today. FINDINGS: The tip of the endotracheal tube 4.3 cm above the rodo. Tip of nasogastric tube is below the lower aspect of this image but at least at the gastroesophageal junction. Cardiomegaly is again n oted. There is no pneumothorax. Small to moderate bilateral pleural effusions are noted. Associated a irspace opacities are greater on the left. Pulmonary vascular congestion is noted. Multiple acute ant erior bilateral rib fractures are better depicted on the chest CT. IMPRESSION: 1. Tip of endotracheal tube 4.3 cm above the rodo. 2. Cardiomegaly with pulmonary vascular congestion. 2. Small to moderate bilateral pleural effusions with extensive left basilar airspace opacity. This c ould reflect consolidation or atelectasis. ACT 112: Negative or not required by law. Electronically signed by: Rancho Carr M.D. 02/08/2024 8:32 AM
--- NOTE | 2024-02-08 10:13 | Critical Care Progress Note ---
Date of Service February 08, 2024 Assessment & Plan (1) HFrEF (heart failure with reduced ejection fraction): (2) ST elevation (STEMI) myocardial infarction: (3) Contusion of forehead: (4) Cardiac arrest: (5) Complex sleep apnea syndrome: (6) Atrial fibrillation, persistent: (7) Shock circulatory: (8) Transaminitis: Plan Reason Critically Ill: 73-year-old male past medical history of complex sleep apnea, A-fib, systolic CHF presented to the hospital with cardiac arrest. Went to the [facility] and 4 stents were placed in RCA 24-hour events: Patient underwent bronchoscopy yesterday. He was attempted on SBT but due to neurological status was not extubated and he developed tachypnea and tachycardia with SVT. CT of the chest and abdomen was performed this morning due to decreasing hemoglobin and hematocrit which demonstrated a 13 x 5 cm subcapsular liver hematoma with potential liver laceration as well as a splenic lack and a small degree of hemoperitoneum. He has been hemodynamically stable. Impression: Neuro -[id number]-xu-[id number] cardiac arrest with unknown downtime, at risk for anoxic encephalopathy. EEG showed mild encephalopathic changes but no evidence of seizure. CT of the head showed no evidence of traumatic injury and initially showed some blurring of mendoza-white matter interface which was improved on follow-up CT scan. Ecchymosis appears stable. Continue supportive care at this point in time. Currently sedated on fentanyl and propofol. Given findings on CT imaging today, will defer additional SBT until his traumatic issues are resolved. Cardiac -yvy-fe-lxbupqnp cardiac arrest with ST elevation myocardial infarction status post 4 drug-eluting stents placed in distal RCA 02/03/2024. Echocardiogram 02/03/2024 showed an EF of 35 to 40%. Currently on dual antiplatelet therapy with aspirin and Brilinta. Patient did have some episodic atrial fibrillation and is currently on amiodarone. Eliquis was held due to hematuria, see comments below. Respiratory -intubated due to cardiac arrest. Bronchoscopy performed yesterday with cultures showing staph. See comments on IV below. Defer vent weaning today until hematologic and trauma issues are resolved. GI -subcapsular liver hematoma with potential liver lack and splenic lack identified on CT abdomen today. Discussed with general surgery here. They recommended transfer to a trauma center with capabilities for interventional radiology if needed. Small amount of hemoperitoneum. Continue to trend hemoglobin and hematocrit. Repeat LFTs today -hematuria. Urology consultation note reviewed. [place] to be secondary to Nunez catheter and potential BPH. Eliquis discontinued and bleeding appears resolved. Continue to follow RENAL/LYTES -mild hyponatremia as well as hypokalemia and hypocalcemia with hypophosphatemia. Electrolyte replacement protocol initiated. Follow sodium at this point in time. May have a component of hypervolemic hyponatremia although with potential blood loss, restriction of fluids is somewhat problematic. Creatinine stabilized. ENDO - glycemic control per protocol HEME -anemia with thrombocytopenia, likely secondary to acute blood loss with subcapsular liver hematoma as well as small amount of hemoperitoneum. Continue serial hemoglobin and hematocrit. Coagulation panel checked yesterday was normal with normal fibrinogen. ID -MSSA in the sputum as well as fever and gram-negative michelle not yet speciated from the bronchoscopy. The patient received vancomycin for 2 days on admission and Zosyn for 4 days on admission but is not been on antibiotics since the 12th.. Will place on cefepime for now and follow. White blood cell count is normalized. Fever curve improved. --Prophylaxis VTE: Eliquis on hold GI: Pantoprazole Lines: Peripheral, 1 18Ga and 2 20Ga Diet: Tube feeds I have personally spent 78 minutes of critical care time in the direct management of this patient. This is a life/limb threatening event. This includes time spent evaluating patient, direct bedside care, chart review, placing orders, interpretation of diagnostic studies, discussion with consultants, patient, and family members, as well as other required patient management activities. This time is exclusive of all separately billable procedures, and teaching time and separate from and in addition to any other critical care service time. Admission and Anticipated Discharge Date Admission Date: February 03, 2024 Subjective Patient seen and examined. EMR reviewed. Discussed with off going timber cutter as well as overnight critical care MARIA M. Discussed on multidisciplinary rounds. Patient remains intubated and sedated on the ventilator Review of Systems Review of Systems: Unobtainable due to endotracheal tube Physical Exam Constitutional: + mechanically ventilated Intubated and sedated ENMT: Bilateral periorbital ecchymoses with a small laceration over the bridge of the nose. No active bleeding. No step-off Neck: trachea midline, no thyromegaly Respiratory: normal respiratory effort, lungs clear to auscultation Cardiovascular: RRR, no murmur, no edema Gastrointestinal (Abdomen): normal bowel sounds, soft, nontender, no hepatosplenomegaly Musculoskeletal: Extremities: extremities normal to inspection Skin: no rashes, warm and dry Neurologic: Sedated Lymphatic: no cervical lymphadenopathy Results & Data Results & Data Vital Signs (Past 12 Hours) Vital Signs Temp Pulse Resp BP Pulse Ox FiO2 02/08/24 07:30 85 16 94 40 02/08/24 07:03 77 18 94 02/08/24 06:21 103/55 L 02/08/24 06:18 19 100 02/08/24 06:15 28 H 85 L 02/08/24 05:09 37.2 C 75 16 98 02/08/24 04:30 79 16 97 02/08/24 04:30 96/66 L 02/08/24 04:30 96/66 L 02/08/24 04:30 96/66 L 02/08/24 04:20 71 02/08/24 04:09 71 16 94 02/08/24 04:00 40 02/08/24 03:33 78 16 96 02/08/24 03:30 91/56 L 02/08/24 03:15 75 16 97 40 02/08/24 03:00 101/59 L 02/08/24 02:54 78 16 95 02/08/24 02:30 101/56 L 02/08/24 02:30 101/56 L 02/08/24 02:30 101/56 L 02/08/24 02:24 92 H 16 94 02/08/24 02:00 74 16 94 02/08/24 01:30 82 16 92 02/08/24 01:30 96/60 L 02/08/24 01:30 96/60 L 02/08/24 01:00 72 16 94 02/08/24 00:30 111/58 L 02/08/24 00:30 111/58 L 02/08/24 00:30 111/58 L 02/08/24 00:30 111/58 L 02/08/24 00:30 111/58 L 02/08/24 00:30 67 16 98 02/08/24 00:00 37.3 C 76 16 96 02/08/24 00:00 109/65 02/08/24 00:00 109/65 02/08/24 00:00 40 02/07/24 23:30 37.3 C 71 16 98 02/07/24 23:30 110/64 02/07/24 23:30 110/64 02/07/24 23:30 110/64 02/07/24 23:15 37.4 C 68 16 99 02/07/24 23:00 92/65 L 02/07/24 22:57 37.4 C 69 16 98 02/07/24 22:20 75 16 99 40 02/07/24 22:06 37.3 C 80 16 97 02/07/24 22:00 101/62 Critical Care Results & Data Vital Signs (Past 12 Hours) Vital Signs Temp Pulse Resp BP Pulse Ox O2 Del Method FiO2 02/08/24 08:00 Mechanical Vent 40 02/08/24 07:30 85 16 94 40 02/08/24 07:03 77 18 94 02/08/24 06:21 103/55 L 02/08/24 06:18 19 100 02/08/24 06:15 28 H 85 L 02/08/24 05:09 37.2 C 75 16 98 02/08/24 04:30 79 16 97 02/08/24 04:30 96/66 L 02/08/24 04:30 96/66 L 02/08/24 04:30 96/66 L 02/08/24 04:20 71 02/08/24 04:09 71 16 94 02/08/24 04:00 40 02/08/24 03:33 78 16 96 02/08/24 03:30 91/56 L 02/08/24 03:15 75 16 97 40 02/08/24 03:00 101/59 L 02/08/24 02:54 78 16 95 02/08/24 02:30 101/56 L 02/08/24 02:30 101/56 L 02/08/24 02:30 101/56 L 02/08/24 02:24 92 H 16 94 02/08/24 02:00 74 16 94 02/08/24 01:30 82 16 92 02/08/24 01:30 96/60 L 02/08/24 01:30 96/60 L 02/08/24 01:00 72 16 94 02/08/24 00:30 111/58 L 02/08/24 00:30 111/58 L 02/08/24 00:30 111/58 L 02/08/24 00:30 111/58 L 02/08/24 00:30 111/58 L 02/08/24 00:30 67 16 98 02/08/24 00:00 37.3 C 76 16 96 02/08/24 00:00 109/65 02/08/24 00:00 109/65 02/08/24 00:00 40 02/07/24 23:30 37.3 C 71 16 98 02/07/24 23:30 110/64 02/07/24 23:30 110/64 02/07/24 23:30 110/64 02/07/24 23:15 37.4 C 68 16 99 02/07/24 23:00 92/65 L 02/07/24 22:57 37.4 C 69 16 98 02/07/24 22:20 75 16 99 40 02/07/24 22:06 37.3 C 80 16 97 02/07/24 22:00 101/62 Lab & Micro Results (Past 24 Hours) RBC 2.61 M/uL (4.70-6.10) L 02/08/24 WBC 9.17 K/ul (4.8-10.8) 02/08/24 Hgb 8.2 g/dl (14.0-18.0) L 02/08/24 Hct 24.1 % (42.0-52.0) L 02/08/24 MCV 92.3 fL (80.0-100.0) 02/08/24 MCH 31.4 pg (25.0-34.0) 02/08/24 MCHC 34.0 g/dL (32.0-36.0) 02/08/24 RDW Standard Deviation 49.2 fL (36.4-46.3) H 02/08/24 RDW Coefficient of Variation 14.8 % (11.5-14.5) H 02/08/24 Plt Count 96 K/uL (130-400) L 02/08/24 MPV 12.6 fL (9.4-12.4) H 02/08/24 Neutrophils (%) (Auto) 78.9 % 02/08/24 Lymphocytes (%) (Auto) 6.8 % 02/08/24 Monocytes # (Auto) 1.14 K/uL (0.11-0.59) H 02/08/24 Eosinophils # (Auto) 0.09 K/uL (0.00-0.50) 02/08/24 Immature Granulocyte % (Auto) 0.5 % 02/08/24 Neutrophils # (Auto) 7.23 K/uL (1.40-6.50) H 02/08/24 Lymphocytes # (Auto) 0.62 K/uL (1.20-3.40) L 02/08/24 Monocytes # (Auto) 1.14 K/uL (0.11-0.59) H 02/08/24 Eosinophils # (Auto) 0.09 K/uL (0.00-0.50) 02/08/24 Basophils # (Auto) 0.04 K/uL (0.00-0.20) 02/08/24 Immature Granulocyte # (Auto) 0.05 K/uL (0.01-0.20) 4 Na 129 mmol/L (136-145) L 02/08/24 K 3.4 mmol/L (3.5-5.1) L 02/08/24 Cl 97 mmol/L (98-107) L 02/08/24 CO2 26 mmol/L (21-32) 02/08/24 Anion Gap 6 (3-11) 02/08/24 BUN 34 mg/dl (6-23) H 02/08/24 Creatinine 1.35 mg/dl (0.6-1.4) 02/08/24 BUN/Creatinine Ratio 25.2 (10-20) H 02/08/24 Glu 96 mg/dl (70-99(Fasting)) 02/08/24 Ca 7.6 mg/dl (8.6-10.3) L 02/08/24 Phosphorus Level 2.1 mg/dl (2.5-4.9) L 02/08/24 Mg 2.3 mg/dl (1.7-2.4) 02/08/24 04:11 Calcium Level 7.6 mg/dl (8.6-10.3) L 02/08/24 04:11 Microbiology 02/07/24 11:30 Gram Stain - Final Bronch Wash, Right Main Stem Bronchial Culture - Preliminary Gram negative bacilli Diagnostic Findings (Past 24 Hours) Chest X-Ray 02/07/24 10:16 XR chest 1V portable HISTORY: 73 years-old Male post bronch status post bronchoscopy COMPARISON: Chest radiograph of same day TECHNIQUE: AP view the chest FINDINGS: Endotracheal tube overlies the midline, 5 cm superior to the rodo. Enteric tube courses into the stomach with distal tip outside the diugm-zv-iaaw. Cardiac silhouette is enlarged. Pulmonary vascular congestion with persistent interstitial coarsening. No pneumothorax. Stable size of the layering pleural effusions with bibasilar consolidation. Unchanged mediastinal contours. IMPRESSION: 1. No postprocedural pneumothorax. 2. Endotracheal and enteric tube positioning as above. 3. Cardiomegaly with unchanged pulmonary edema, pleural effusions and bibasilar consolidation. ACT 112: Negative or not required by law. The above report was generated using voice recognition software. It may contain grammatical, syntax or spelling errors. Electronically signed by: Shiva Ponce M.D. 02/07/2024 10:34 AM Abdomen/Pelvis CT 02/08/24 05:20 CT OF THE ABDOMEN AND PELVIS WITH CONTRAST CLINICAL HISTORY: eval for occult bleeding COMPARISON STUDY: Renal ultrasound May 02, 2022. TECHNIQUE: Following IV administration of 118 mL of Optiray, axial images of the abdomen and pelvis were obtained from the lung bases to the proximal femurs. Images were reviewed in the axial, sagittal, and coronal planes. IV contrast was administered without complication. Automated exposure control was utilized for the study. A dose lowering technique was utilized adhering to the principles of ALARA. FINDINGS: Please note that the chest CT will be reported separately. Small bilateral pleural effusions with extensive left lower lobe and segmental right lower lobe airspace opacities are better depicted on that exam. In addition, multiple acute appearing displaced anterior bilateral rib fractures are better depicted on that exam. No pneumoperitoneum is present. There is no portal venous gas. There is a 13.1 x 5.5 cm subcapsular hyperdense fluid collection overlying the lateral segment of the liver consistent with a subcapsular hematoma. There is an adjacent 4.2 cm linear density within the lateral segment of the liver on image 115. There is a small to moderate amount of hyperdense perihepatic and perisplenic fluid consistent with hemoperitoneum. Subtle linear hypodensity within the anterior aspect of the spleen on image 113 is noted. A small splenic laceration cannot be excluded. No active extravasation is identified on this examination. There is a small amount of hyperdense fluid within the pelvis. There is no evidence for a bowel obstruction. The gallbladder is moderately distended. A small amount of layering hyperdense material within the gallbladder is present. Infrarenal abdominal aortic aneurysm measures 3.2 cm. The prostate is enlarged. Nunez balloon within the bladder is present. No acute lumbar spine, pelvis or hip fractures are present. Body wall edema is present. Small hypodense bilateral renal lesions are too small to characterize. There is no hydronephrosis. There is no retroperitoneal hematoma. IMPRESSION: 1. Evidence for traumatic injury to the liver with a 13.1 x 5.5 cm subcapsular hematoma overlying the lateral segment of the liver. Adjacent 4.2 cm linear density within the liver could represent a underlying liver laceration or artifact. No active extravasation. This finding will be called/faxed to the ordering provider at time of dictation. 2. Small to moderate hemoperitoneum within the abdomen and pelvis. 3. Linear density within the anterior aspect of the spleen which may represent a small splenic laceration or artifact. 4. Multiple acute anterior bilateral rib fractures better depicted on the chest CT will be reported separately. 5. Bilateral pleural effusions and lower lobe airspace opacities, greater within the left lower lobe, also better depicted on the chest CT. 6. 3.2 cm infrarenal abdominal aortic aneurysm. 7. Gallbladder distention without pericholecystic stranding. Layering material within the gallbladder could reflect sludge or stones. ACT 112: Negative or not required by law. Electronically signed by: Rancho Carr M.D. 02/08/2024 7:30 AM Chest CTA 02/08/24 05:20 CT ANGIOGRAM OF THE CHEST CLINICAL HISTORY: Hemorrhage. COMPARISON STUDY: Chest x-ray dated 02/07/2024. TECHNIQUE: Following the IV administration of 118 cc of Optiray 320, CT angiogram of the chest was performed from the thoracic inlet to the upper abdomen utilizing the dissection protocol. Images are reviewed in the axial, sagittal, and coronal planes. 3-D MIPS images are created and assessed. IV contrast was administered without complication. A dose lowering technique was utilized adhering to the principles of ALARA. The examination is degraded by motion artifact, as well as by streak artifact from the arms which could not be elevated above the chest. CT DOSE: 3109.17 mGy.cm FINDINGS: Thyroid: Normal in size and heterogeneous in attenuation. Thoracic aorta: There is mild atherosclerotic calcification of the thoracic aorta, which is normal in caliber and demonstrates standard 3-vessel arch anatomy. No dissection is seen. The arch vessels are widely patent. Pulmonary vasculature: The pulmonary trunk is normal in caliber. There are no central filling defects identified in the pulmonary vessels to suggest pulmonary embolus. Note that this examination was not specifically protocoled to assess for pulmonary emboli. Heart: The heart is enlargement noting trace pericardial effusion. The coronary arteries are densely calcified. Lungs and pleural spaces: An endotracheal tube terminates above the rodo. Emphysematous change is observed. There is no pneumothorax. There are small to moderate pleural effusions with dependent consolidation. Mediastinum: There is trace mediastinal hemorrhage. No lymphadenopathy is seen. [place]: Clear. Axillae: There is no axillary lymphadenopathy. Upper abdomen: An enteric tube is in place. This terminates just below the gastroesophageal junction. The gallbladder is distended. There is subcapsular hemorrhage within the left hepatic lobe as well as perihepatic and perisplenic hemorrhage. Question hepatic and splenic lacerations. Skeletal structures: The skeletal structures are osteopenic. There is nondepressed fractures of the body of the sternum with surrounding hemorrhage, best seen on axial image #135. There are acute right anterior 2nd through 6th rib fractures. Several are mildly displaced. There are acute left anterior 4th and 5th rib fractures which are mildly displaced. Degenerative change and hyperkyphosis is noted in the thoracic spine. Arthritic change is seen in the shoulders. No lytic or blastic bony lesions are seen. IMPRESSION: 1. There is no CT evidence of traumatic injury to the thoracic aorta. 2. Numerous acute anterior rib fractures and a nondepressed sternal fracture. 3. Vmppt-xn-lslqwxhf pleural effusions with dependent consolidation. 4. No pneumothorax is seen. 5. Cardiomegaly and emphysema. 6. There is trace mediastinal hemorrhage, likely secondary to the sternal fracture. 7. There is subcapsular hemorrhage in the left hepatic lobe, hemoperitoneum, and possible splenic/hepatic lacerations. See today's abdominal CT report for detailed intra-abdominal findings. 8. Endotracheal and enteric tubes are in place as above. The enteric tube should likely be advanced. 9. Additional findings as above. ACT 112: Negative or not required by law. Electronically signed by: Jayy German M.D. 02/08/2024 8:03 AM Chest X-Ray 02/08/24 06:00 XR chest 1V portable CLINICAL HISTORY: eval tubes/lines/lung nails COMPARISON STUDY: Chest radiograph February 07, 2024. Chest CT performed earlier today. FINDINGS: The tip of the endotracheal tube 4.3 cm above the rodo. Tip of nasogastric tube is below the lower aspect of this image but at least at the gastroesophageal junction. Cardiomegaly is again noted. There is no pneumothorax. Small to moderate bilateral pleural effusions are noted. Associated airspace opacities are greater on the left. Pulmonary vascular congestion is noted. Multiple acute anterior bilateral rib fractures are better depicted on the chest CT. IMPRESSION: 1. Tip of endotracheal tube 4.3 cm above the rodo. 2. Cardiomegaly with pulmonary vascular congestion. 2. Small to moderate bilateral pleural effusions with extensive left basilar airspace opacity. This could reflect consolidation or atelectasis. ACT 112: Negative or not required by law. Electronically signed by: Rancho Carr M.D. 02/08/2024 8:32 AM I & O Totals 24 Hours 02/07/24 02/08/24 02/09/24 06:59 06:59 06:59 Intake Total 2337.050 / 2337.050 1696.242 / 1696.242 92.319 / 92.319 Output Total 1520 / 1520 1710 / 1710 Balance 817.050 / 817.050 -13.758 / -13.758 92.319 / 92.319 Cumulative 02/03/24 10:39 thru 02/08/24 07:03 Intake Total 27811.726 Output Total 5635 Balance 7246.726 RT Ventilator Mngmt (Last Documented) Ventilator Ordered Settings Ventilator Support Mode Assist Control 02/08/24 07:30 Respiratory Rate 16 02/08/24 07:30 Ventilator Tidal Volume 550 02/08/24 07:30 Setting Minute Ventilation 8 02/08/24 07:30 Ventilator Positive Pressure 5 02/05/24 08:00 Support Setting Positive End Expiratory 5 02/08/24 07:30 Pressure Fraction of Inspired Oxygen 40 02/08/24 08:00 Ventilator - PT Measurements Respiratory Rate 16 Exhaled Tidal Volume 550 Minute Ventilation 8 Peak Inspiratory Airway 23 Pressure Plateau Pressure 13 Respiratory Cycle Inspiratory: 1:3.2 Expiratory Ratio Inspiratory Phase Time 0.9 End-Tidal CO2 34 Static Lung Compliance 68.75 Dynamic Lung Compliance 30.56 Normal Static Lung Compliance 47.00 Patient Measurements Comment No changes made at this time. Coding Level of Care Code 32778 CRITICAL CARE EA ADD 30M Diagnoses HFrEF (heart failure with reduced ejection fraction) I50.20 ST elevation (STEMI) myocardial infarction I21.11 Involved coronary artery: right coronary artery Contusion of forehead S00.83XA Encounter type: initial encounter Cardiac arrest I46.9 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
[2024-02-08 10:27] LABS: Basophils # (auto) 0.04 K/uL (0.00-0.20); Basophils % (auto) 0.5 %; Eosinophils # (auto) 0.08 K/uL (0.00-0.50); Eosinophils % (auto) 1.1 %; Hematocrit (blood only) 23.1 % (42.0-52.0); Hemoglobin 8.2 g/dl (14.0-18.0); Immature Granulocytes # (auto) 0.05 K/uL (0.01-0.20); Immature Granulocytes % (auto) 0.7 %; Lymphocytes # (auto) 0.53 K/uL (1.20-3.40); Lymphocytes % (auto) 7.3 %; Mean Corpuscular Hemoglobin 32.2 pg (25.0-34.0); Mean Corpuscular Hgb Conc 35.5 g/dL (32.0-36.0); Mean Corpuscular Volume 90.6 fL (80.0-100.0); Mean Platelet Volume 12.9 fL (9.4-12.4); Monocytes # (auto) 0.72 K/uL (0.11-0.59); Monocytes % (auto) 9.8 %; Neutrophils # (auto) 5.89 K/uL (1.40-6.50); Neutrophils % (auto) 80.6 %; Platelet Count 78 K/uL (130-400); RDW Coefficient of Variation 14.7 % (11.5-14.5); RDW Standard Deviation 48.9 fL (36.4-46.3); Red Blood Count 2.55 M/uL (4.70-6.10); White Blood Count 7.31 K/ul (4.8-10.8)
[2024-02-08 10:42] VITALS: PULSE 70
[2024-02-08] MEDS ORDERED: PEPTAMEN INTENSE VHP 1.0 CAL 1,000 ML BAG OG SCH (10:45)
[2024-02-08 10:48] LABS: Bilirubin Direct 0.5 mg/dl (0-0.2); Bilirubin,Total 1.3 mg/dl (0.2-1.0); Total Protein 5.2 gm/dl (6.0-8.3)
[2024-02-08] MEDS: TUBE FEEDING WATER FLUSH OG SCH (10:51)
[2024-02-08] MEDS: CEFEPIME 2000MG 2,000 MG/20 ML SYR IV SCH (10:51)
--- NOTE | 2024-02-08 11:21 | Hospitalist Progress Note ---
Date of Service February 08, 2024 Assessment & Plan (1) AMS (altered mental status): Plan: Likely due to hypoxic injury following cardiac arrest. Prognosis guarded. Pt opens eyes spontaneously, although does not yet follow commands. Supportive care (2) ST elevation (STEMI) myocardial infarction: Plan: Acute inferior STEMI. [id number] collapse, with CPR and subsequent ROSC. Received 3 doses of epinephrine and 1 dose of atropine prehospital. Prehospital EKG with inferior ST elevations. Taken to the [facility] emergently. Subsequently was found to have distal RCA acute occlusion s/p 4 DIANE. Echo with EF 35-40% severe inferior/inferolateral/basal inferoseptal hypokinesis. BBlocker and Entresto held for cardiogenic shock requiring pressors. Continue DAPT aspirin/Brilinta via OG. Cardiology consultation and recommendations appreciated (3) Liver laceration: Plan: Seen on abdominal CT scan today, February 07, with subcapsular liver hematoma and evidence of hemoperitoneum. There also may be a spleen laceration. He is being transferred to a tertiary care center for further care (4) HFrEF (heart failure with reduced ejection fraction): Plan: Parenteral diuretics as needed. Monitor intake and output. Serial chest x-ray (5) Atrial fibrillation: Plan: EKG on admission revealed A-fib. Appreciate cardiology consultation and recommendations. Continued on amiodarone on admission. 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 Beta- amina held on admission for cardiogenic shock requiring pressor support. Also history of multiple severe GI bleeds and anemia. Did have ERNESTO clipping in 2019. Eliquis held for development of hematuria and downtrending hemoglobin (6) ANNA MARIE (acute kidney injury): Plan: Monitor intake and output. Serial labs. Plan Transfer to [facility] today, February 07 Admission and Anticipated Discharge Date Admission Date: February 03, 2024 Subjective The patient remains intubated and sedated. He moves all 4 extremities randomly and opens his eyes but does not follow commands. Abdomen CT scan unfortunately shows what appears to be a liver laceration with a subcapsular hematoma and evidence of hemoperitoneum. There also may be a spleen laceration. He has multiple bilateral rib fractures probably from falling and from CPR. Arrangements are being made for transfer to [facility] for tertiary care. Review of Systems 2 Review of Systems: The patient is intubated and sedated and unable to answer any questions regarding review of systems at this time Physical Exam 2 Physical Exam: General-intubated and sedated HEENT-periorbital and perinasal ecchymoses noted. ET tube and OT tube in place. Neck-no lymphadenopathy or thyromegaly, trachea midline Chest-scattered bilateral rhonchi from anterior approach. No wheezing. Cardiac-irregular rhythm. Controlled rate. Normal S1 and S2 Abdomen-hypoactive bowel sounds. No palpable masses Extremities-no significant peripheral edema seen Neuro-intubated and sedated. Moving all 4 extremities randomly Psych-cannot assess Results & Data Results & Data Vital Signs (Past 12 Hours) Vital Signs Temp Pulse Resp BP Pulse Ox O2 Del Method FiO2 02/08/24 08:00 70 02/08/24 08:00 40 02/08/24 08:00 Mechanical Vent 40 02/08/24 07:30 85 16 94 40 02/08/24 07:03 77 18 94 02/08/24 06:21 103/55 L 02/08/24 06:18 19 100 02/08/24 06:15 28 H 85 L 02/08/24 05:09 37.2 C 75 16 98 02/08/24 04:30 79 16 97 02/08/24 04:30 96/66 L 02/08/24 04:30 96/66 L 02/08/24 04:30 96/66 L 02/08/24 04:20 71 02/08/24 04:09 71 16 94 02/08/24 04:00 40 02/08/24 03:33 78 16 96 02/08/24 03:30 91/56 L 02/08/24 03:15 75 16 97 40 02/08/24 03:00 101/59 L 02/08/24 02:54 78 16 95 02/08/24 02:30 101/56 L 02/08/24 02:30 101/56 L 02/08/24 02:30 101/56 L 02/08/24 02:24 92 H 16 94 02/08/24 02:00 74 16 94 02/08/24 01:30 82 16 92 02/08/24 01:30 96/60 L 02/08/24 01:30 96/60 L 02/08/24 01:00 72 16 94 02/08/24 00:30 111/58 L 02/08/24 00:30 111/58 L 02/08/24 00:30 111/58 L 02/08/24 00:30 111/58 L 02/08/24 00:30 111/58 L 02/08/24 00:30 67 16 98 02/08/24 00:00 37.3 C 76 16 96 02/08/24 00:00 109/65 02/08/24 00:00 109/65 02/08/24 00:00 40 02/07/24 23:30 37.3 C 71 16 98 02/07/24 23:30 110/64 02/07/24 23:30 110/64 02/07/24 23:30 110/64 02/07/24 23:15 37.4 C 68 16 99 Laboratory Results 02/08/24 09:50 02/08/24 04:11 PG Care Time/CCT Total # of Minutes Spent Total Time Spent with Patient: Total time spent is greater than 50% in coordination of care (as documented) at patient's floor/unit and/or counseling patient: Coding Level of Care Code 73628 SUB INP/OBS CARE 3/50MIN Diagnoses AMS (altered mental status) R41.82 ST elevation (STEMI) myocardial infarction I21.11 Involved coronary artery: right coronary artery Liver laceration S36.113A HFrEF (heart failure with reduced ejection fraction) I50.20 Atrial fibrillation I48.91 ANNA MARIE (acute kidney injury) N17.9 (2) ST elevation (STEMI) myocardial infarction Involved coronary artery: right coronary artery Qualified Code(s): I21.11 - ST elevation (STEMI) myocardial infarction involving right coronary artery
--- NOTE | 2024-02-08 11:30 | Discharge Summary ---
Discharge Summary Date of Service February 08, 2024 Principal Dx & Hospital Course #1 = Principal Diagnosis (1) AMS (altered mental status): Likely due to hypoxic injury following cardiac arrest. Prognosis guarded. Pt opens eyes spontaneously, although does not yet follow commands. Supportive care (2) ST elevation (STEMI) myocardial infarction: Acute inferior STEMI. Ven-gf-ituadylh collapse, with CPR and subsequent ROSC. Received 3 doses of epinephrine and 1 dose of atropine prehospital. Prehospital EKG with inferior ST elevations. Taken to the [facility] emergently. Subsequently was found to have distal RCA acute occlusion s/p 4 DIANE. Echo with EF 35-40% severe inferior/inferolateral/basal inferoseptal hypokinesis. BBlocker and Entresto held for cardiogenic shock requiring pressors. Continue DAPT aspirin/Brilinta via OG. Cardiology consultation and recommendations appreciated (3) Liver laceration: Seen on abdominal CT scan today, February 07, with subcapsular liver hematoma and evidence of hemoperitoneum. There also may be a spleen laceration. He is being transferred to a tertiary care center for further care (4) HFrEF (heart failure with reduced ejection fraction): Parenteral diuretics as needed. Monitor intake and output. Serial chest x-ray (5) Atrial fibrillation: EKG on admission revealed A-fib. Appreciate cardiology consultation and recommendations. Continued on amiodarone on admission. 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 Beta- amina held on admission for cardiogenic shock requiring pressor support. Also history of multiple severe GI bleeds and anemia. Did have ERNESTO clipping in 2019. Eliquis held for development of hematuria and downtrending hemoglobin (6) ANNA MARIE (acute kidney injury): Monitor intake and output. Serial labs. Plan Transfer to [facility] today, February 07 Admission HPI Per Admitting Provider Bruno is a 73-year-old male with past medical history of atrial fibrillation, PAD, hypertension, hyperlipidemia on Eliquis, carvedilol, Entresto who presents to the ER as a heart alert. Collateral is limited, patient is intubated and no history is available from the patient at bedside. Patient's is reportedly on the way to the hospital has not yet present at bedside for collateral. Per EMS in signout report patient was in a fishing at a , had a stressful conversation following a and collapsed shortly after. CPR was started immediately by the under taker and was performed for approximately 10 minutes until EMS arrival. Patient received 3 doses of epinephrine and 1 dose of atropine prehospital with ROSC after approximately 10 minutes. Prehospital EKG showed inferior ST elevations. Patient was intubated. At time of bedside evaluation patient is intubated, on Levophed 0.5, and serial EKGs with improving inferior ST elevations compared to prior. Patient is reportedly on Eliquis. Does have a history of nonischemic cardiomyopathy with EF in 2020 around 40-45%, interval improvement on last echo 55-60% while on Entresto, carvedilol. He is a known vasculopath with a history of left femoral stent placement on Eliquis monotherapy, no known antiplatelet therapy. Does have a history of prediabetes on metformin, and tobacco abuse. History of A-fib. Stat head CT without obvious intracranial pathology. While in the ER patient was started on Levophed 0.5, continued on mechanical ventilation. Patient was started on a heparin drip Patient taken emergently to the [facility] for cardiac catheterization, and to be admitted to the ICU following. Further workup and collateral pending reeval uation and discussion once family at bedside. Patient is reportedly full code. Medical History: Reviewed in EMR Medications: Reviewed in EMR Surgical History: Reviewed in EMR Family history: Reviewed in EMR Allergies: Reviewed in EMR Social History: Reviewed in EMR +tobacco use Code Status: Reviewed in EMR, full Code Discharge Exam General-intubated and sedated HEENT-head atraumatic and normocephalic, ET tube in orotracheal tube in place Neck-no lymphadenopathy or thyromegaly, trachea midline Chest-scattered rhonchi bilaterally from anterior approach. No wheezing Cardiac -irregular rhythm. Controlled rate. Normal S1 and S2 Abdomen-hypoactive bowel sounds. No palpable masses Extremities-no cyanosis, clubbing, or edema Neuro-moving all extremities randomly. Intubated and sedated. 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 Call non-emergency contact if: your symptoms worsen Follow-up/Referrals: Wood Nagy, DO [Primary Care Provider] - Diet: Nothing by Mouth Addtl Attending Provider Instructions: Follow-up with cardiology as soon as possible after discharge from [facility] Pending Studies at Discharge: No Stand-Alone Forms: My [facility] Skilled Items Patient informed of condition?: No DNR: No Discharge Level of Care: Other Communicable Disease: No Discharge Prognosis: Other Lines: Peripheral IV Urinary Catheter: Yes Medications and DC Order Prescriptions: New amiodarone 200 mg Tablet 200 mg PO QAM Qty: 0 0RF atorvastatin 40 mg Tablet 80 mg PO QAM Qty: 0 0RF Brilinta 90 mg Tablet 90 mg PO BID Qty: 0 0RF aspirin [Children's Aspirin] 81 mg Tablet,Chewable 81 mg PO QAM Qty: 0 0RF Continued tamsulosin [Flomax] 0.4 mg capsule 0.4 mg PO BID Qty: 180 3RF Rx Instructions: last filled in September 2023 90 day supply Eliquis 5 mg tablet 5 mg PO BID Qty: 60 6RF Entresto 24-26 mg tablet 1 tab PO BID Qty: 180 5RF carvedilol 3.125 mg tablet 3.125 mg PO BID Qty: 180 3RF Rx Instructions: must administer with a meal/food metformin 500 mg tablet extended release 24 hr 500 mg PO BID Qty: 180 1RF Rx Instructions: Take with food. (DME) CPAP Machine Misc See Rx Instructions .Route Qty: 1 0RF Rx Instructions: ResMed AVS machine set to minimum EPAP 5, maximuim EPAP 15, minimum pressure support 4, maximum pressure support 20, maximum pressure support 20, auto rate. multivitamin Tablet 1 tab PO QAM Rx Instructions: otc unable to verify acetaminophen 500 mg Tablet 500 mg PO QAM Rx Instructions: otc unable to verify Discharge Orders: Discharge Order (Routine); Ordered 02/08/24 Ordered By: Cooper Bellamy Admission Data Admit Date/Time: 02/03/24 11:49 Attending Provider: Cooper Bellamy Admit Provider: Hernandez Zuleta Primary Care Provider: Wood Nagy Other Providers: Hernandez Zuleta; Justin Fiore; Geovanni Gtz; Geovanni Parra; Jacqui Moore; Kimo Dhillon; Denisse Stevens; Lupe Tinoco; Jung Hoyos; Nette Ding; Khalif Alvares; Mann Goins; Alirio Candelario Hospital Stay Data Consultations 02/03/24 11:37 ED Decision to Admit Stat 02/03/24 14:36 Consult Automation Developer Routine 02/03/24 21:41 Consult Cardiology Routine 02/06/24 09:16 Consult Urology Routine 02/08/24 11:13 Burn CD for patient Stat Procedures Performed Operation Date: 02/03/24 11:20 Actual Procedures s Cineradiography w/Routine Exam - Geovanni Gtz MD p Aspiration/PCI w/DIANE for Stemi - Geovanni Gtz MD s IVUS Coronary Single Vessel - Geovanni Gtz MD Diagnostic Imagining Performed 02/03/24 01:57 CL IVUS Coronary Single Vessel Routine 02/03/24 10:50 CT cervical spine wo con Stat CT head/brain wo con Stat 02/03/24 11:11 CL Cath Imgs for PACS use only Stat 02/05/24 05:00 CT head/brain wo con DAILY 02/08/24 05:20 CT Abd and Pelvis [CT abd pelvis IV con only] Routine CT angio chest w con Routine Pending Results Patient Have Any Pending Studies at Discharge: No Discharge Instructions Given to Patient (Per Discharging Provider) Follow-up with cardiology as soon as possible after discharge from [facility] Total Time Total Time Spent Total Time Spent (In Minutes): 45 minutes Coding Level of Care Code 20498 INP/OBS DISCH >30 MIN Diagnoses AMS (altered mental status) R41.82 ST elevation (STEMI) myocardial infarction I21.11 Involved coronary artery: right coronary artery Liver laceration S36.113A HFrEF (heart failure with reduced ejection fraction) I50.20 Atrial fibrillation I48.91 ANNA MARIE (acute kidney injury) N17.9
== END 2024-02-08 12:55 | disposition short-term general hospital (02) | DRG 321 ==
LOC: ED 11:06 → 1E 11:32 → CC 11:32 → 1E 11:49 → SUATTDRO 11:49